=== PATIENT | male | born 1985 | race Caucasian/White ===

== ENCOUNTER 2020-04-05 19:20 | Emergency (ER) | payer OTHER ==
[~2020-04-05] VITALS: Ht 172.7 cm; Wt 74.8 kg
[2020-04-05] MEDS ORDERED: KETOROLAC 30 MG/ML VIAL IVP STA (19:55)
[2020-04-05] MEDS ORDERED: LACTATED RINGERS 1,000 ML IV STA (19:55)
[2020-04-05] MEDS ORDERED: ONDANSETRON 4 MG/2 ML (SDV) Z0FRAN IVP ONE (20:00)
[2020-04-05 20:08] LABS: BASOPHILS % (AUTO) 0 % (0-10); EOSINOPHILS # (AUTO) 0.5 10^3/uL (0.0-0.3); EOSINOPHILS % (AUTO) 5 % (0-10); HEMATOCRIT 44 % (40-54); HEMOGLOBIN 15.9 G/DL (13.3-17.7); LYMPHOCYTES # (AUTO) 2.9 X 10^3 (1.0-4.0); LYMPHOCYTES % (AUTO) 29 % (12-44); MEAN CORPUSCULAR HEMOGLOBIN 33 PG (25-34); MEAN CORPUSCULAR HGB CONC 36 G/DL (32-36); MEAN CORPUSCULAR VOLUME 93 FL (80-99); MEAN PLATELET VOLUME 11.3 FL (7.4-10.4); MONOCYTES % (AUTO) 10 % (0-12); NEUTROPHILS # (AUTO) 5.6 X 10^3 (1.8-7.8); NEUTROPHILS % (AUTO) 56 % (42-75); PLATELET COUNT 233 10^3/uL (130-400); RED CELL DISTRIBUTION WIDTH 13.2 % (10.0-14.5); WHITE BLOOD COUNT 10.1 10^3/uL (4.3-11.0)
[2020-04-05] MEDS ORDERED: CATHETER FLUSH 10 ML SYR IV PRN (20:15)
[2020-04-05] MEDS ORDERED: HOLD METFORMIN - RECEIVED CONTRAST 20 ML VIAL IV SCH (20:15)
[2020-04-05] MEDS ORDERED: NS 100 ML (IVPB) BAG IV ONE (20:15)
[2020-04-05] MEDS ORDERED: IOHEXOL 350 MG/ML 100 ML (OMNIPAQUE 350) VIAL IV ONE (20:15)
[2020-04-05 20:19] LABS: ALBUMIN 4.6 GM/DL (3.2-4.5); CHLORIDE 106 MMOL/L (98-107); POTASSIUM 3.9 MMOL/L (3.6-5.0); SODIUM 143 MMOL/L (135-145)
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
[2020-04-05 20:20] LABS: CALCIUM 9.7 MG/DL (8.5-10.1)
[2020-04-05 20:21] LABS: GLUCOSE 105 MG/DL (70-105); TOTAL PROTEIN 7.5 GM/DL (6.4-8.2)
[2020-04-05 20:22] LABS: CARBON DIOXIDE 24 MMOL/L (21-32)
[2020-04-05 20:23] LABS: BILIRUBIN,TOTAL 0.5 MG/DL (0.1-1.0)
[2020-04-05 20:25] LABS: ALKALINE PHOSPHATASE 66 U/L (40-136); CREATININE SERUM 1.18 MG/DL (0.60-1.30); GFR ESTIMATED > 60
[2020-04-05 20:26] LABS: BUN/CREATININE RATIO 9
[2020-04-05 20:28] LABS: ALANINE AMINOTRANSFERASE 24 U/L (0-55)
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
[2020-04-05 21:14] VITALS: BP 131/94
--- OUTSIDE RECORDS SUMMARY | 2020-04-05 22:09 | XMS REPORT | Clinical Summary ---
Author Author Admin, Esequiel Vo Organization [facility] Address Unknown Phone Unavailable Allergies, Adverse Reactions, Alerts Allergy Name Reaction Description Start Date Severity Status Pr ovider No Known Allergies Manda Mena LPN Conditions or Problems Problem Name Problem Code Onset Date Status Entry Date Provider Comment Standard Description Annotate LOW BACK PAIN SYNDROME 724.2 Active Eric rutherford MD Lumbago Migraine headache 346.90 Active Marielena Samano PRN Migraine, unspecified, without mention of intractable migraine, without mention of status migrainosus Insomnia 780.52 Active Marielena Estes RN CONCURRENT REVIEW Insomnia, unspecified Depression 311 Active Marielena Estes APRN Depressive disorder, not elsewhere classified Hemorrhoids, external 455.3 Active Cj SARAH External hemorrhoids without mention of complication Medication List Medication Instructions Start Date Stop Date Generic Name [facility] Status Provider Patient Instruction TYLENOL PM EXTRA STRENGTH 1000-50 MG/30ML ORAL LIQD 2 tabs p o at bedtime DIPHENHYDRAMINE-APAP (SLEEP) 78438130791 Active Cj SARAH Active TOPAMAX 25 MG TABS 1 qHS x 1 week, then 1 BID x 1 week, then 1 qAM and 2 qHS x 1 week, then 2 BID (migraine prevention) TOPIRAMAT E 97721533590 No Longer Active Cj SARAH Active AMITRIPTYLINE HCL 25 MG TABS 1 tablet at HS AMITRIPTYLINE HCL 32053607664 No Longer Active Cj SARAH Activ e MOBIC 7.5 MG TABS 1 tablet by mouth twice daily MELOXICAM 98162301459 No Longer Active Marielena Estes APRN Active PREDNISONE 20 MG TAB 3 tabs daily for 3 days, 2 t abs daily for 3 days, 1 tab daily for 3 days, 1/2 tab daily for 3 days PREDN CARLOTA 35114541042 No Longer Active Eric Hester MD Active PREDNISONE 20 MG TAB 2 tabs daily for 3 days, 1 t ab daily for 3 days, 1/2 tab daily for 2 days PREDNISONE 96498285218 No Longer Active Eric Hester MD Active MOBIC 7.5 MG TABS 1 tablet by mouth twice daily 10/30 MOBIC 7.5 MG TABS 386047 MELOXICAM Inactive AMITRIPTYLINE HCL 25 MG TABS 1 tablet at HS AMITRIPTYLINE HCL 25 MG TABS 225527 AMITRIPTYLINE HCL Inactive TOPAMAX 25 MG TABS 1 qHS x 1 week, then 1 BID x 1 week, then 1 qAM and 2 qHS x 1 week, then 2 BID (migraine prevention) TOPAMAX 2 5 MG TABS 973430 TOPIRAMATE Inactive PREDNISONE 20 MG TAB 2 tabs daily for 3 days, 1 t ab daily for 3 days, 1/2 tab daily for 2 days PREDNISONE 20 MG TAB 891708 PREDNISON E Inactive PREDNISONE 20 MG TAB 3 tabs daily for 3 days, 2 t abs daily for 3 days, 1 tab daily for 3 days, 1/2 tab daily for 3 days PREDNISONE 20 MG TAB 700501 PREDNISONE Inactive Vital Signs Date Name Value Unit Range Description blood pressure, diastolic - 8462-4 82 mm[Hg] BP post blood pressure, systolic - 8480-6 134 mm[Hg] BP sys pulse rate E&M - 8867-4 82 /min H eart rate temperature E&M 98.8 [degF] Body temp erature weight E&M - 3141-9 160 [lb_av] Weigh t Measured Encounters Code Encounter Date Provider Facility CPT-78996 Level 3 Est. Patient 19:07:23 CDT Cj SARAH [facility] CPT-84372 Level 3 Est. Patient 16:45:43 APPLICATION DEVELOPMENT INTERN Marielena Barrett APRN [facility] CPT-37809 Level 3 Est. Patient 14:52:49 APPLICATION DEVELOPMENT INTERN Eric muhammad MD [facility] CPT-16396 Level 3 Est. Patient 15:41:51 CDT Eric muhammad MD [facility]
--- OUTSIDE RECORDS SUMMARY | 2020-04-05 22:09 | XMS REPORT | Clinical Summary ---
Author Author Admin, Esequiel Vo Organization [employer] Address Unknown Phone Unavailable Allergies, Adverse Reactions, Alerts Allergy Name Reaction Description Start Date Severity Status Pr ovider NKDA Critical Active Kiley Naff LP N Conditions or Problems Problem Name Problem Code Onset Date Status Entry Date Provider Comment Standard Description Annotate LOW BACK PAIN SYNDROME 724.2 Active Eric rutherford MD Lumbago Migraine headache 346.90 Active Marielena Samano PRN Migraine, unspecified, without mention of intractable migraine, without mention of status migrainosus Insomnia 780.52 Active Marielena Estes JET SKI MECHANIC Insomnia, unspecified Depression 311 Active Marielena Estes APRN Depressive disorder, not elsewhere classified Hemorrhoids, external 455.3 Active Cj SARAH External hemorrhoids without mention of complication Anxiety 300.00 Active Cj SARAH Anxiety state, unspecified Insomnia 780.52 Active Cj SARAH Insomnia, unspecified Anxiety depression 300.4 Active Ayan Devi DO Dysthymic disorder High blood pressure 401.9 Active Ayan Devi DO Unspecified essential hypertension Lumbar radiculopathy, right 724.4 Active Ayan Devi DO Thoracic or lumbosacral neuritis or radiculitis, unspecified Pneumonia 486 Active Ayan Devi DO P neumonia, organism unspecified Preoperative examination V72.84 Active Ayan goldsmith DO Preoperative examination, unspecified Postoperative examination V67.00 Active Ayan Devi DO Follow-up examination following surgery, unspecified Medication List Medication Instructions Start Date Stop Date Generic Name NDC Status Provider Patient Instruction FENTANYL 12 MCG/HR PT72 Apply to clean, dry skin and change every 72 hours FENTANYL 32439751827 Active Ayan Devi DO Ac tive LISINOPRIL 20 MG TABS 1 tablet by mouth daily LISINOPRIL 50427648033 Active Ayan Devi DO Active PERCOCET 5-325 MG ORAL TABS 1 tab 4 times daily PRN Sparingly 03/09 OXYCODONE-ACETAMINOPHEN 49299353215 Active Fior Rice JET SKI MECHANIC Active METOPROLOL SUCCINATE ER 25 MG ORAL [id number] 1 tablet daily for elevated blood pressure and heart rate METOPROLOL SUCCINATE 174776527 10 No Longer Active Ayan Devi DO Active METOPROLOL SUCCINATE 50 MG TB24 1 tablet by mouth daily METOPROLOL SUCCINATE 72234849956 Active Ayan Devi DO Active PROAIR HFA 108 (90 BASE) MCG/ACT AERS 2 puffs four lindsey es a day as needed for wheeze or cough ALBUTEROL SULFATE 13719601431 No Long er Active Ayan Devi DO Active AZITHROMYCIN 250 MG TABS 2 po qd x 1 day, then 1 po qd x 4 days AZITHROMYCIN 42731259598 No Longer Active Ayan Devi DO A ctive TRAMADOL HCL 50 MG ORAL TABS Take 1/2 tab po TID with extra strength tylenol TRAMADOL HCL 88842334409 No Longer Active Ayan Devi DO Active FENTANYL 12 MCG/HR TRANS PT72 Apply two patches to boris an dry skin and change every 3 days. FENTANYL 86862015217 No Longer Active Monica Devi DO Active VENLAFAXINE HCL ER 75 MG ORAL [id number] 1 capsule daily for anxiety/depression VENLAFAXINE HCL 97238488029 Active Ayan Devi DO Active VENLAFAXINE HCL 37.5 MG ORAL TABS Take 1 tab po daily x 7 days then increase to twice daily VENLAFAXINE HCL 55731975125 No Longer Active Ayan Devi DO Active ZOLPIDEM TARTRATE 10 MG ORAL TABS 1 tab PO at hs PRN insomnia 20 03/09/08 ZOLPIDEM TARTRATE 98571457194 No Longer Active Ayan Devi DO Active ALPRAZOLAM 0.5 MG ORAL TABS 1 PO q 8 hrs PRN AL PRAZOLAM 30673893761 No Longer Active Ayan Devi DO Active ESCITALOPRAM OXALATE 10 MG ORAL TABS 1 tab PO daily ESCITALOPRAM OXALATE 77727432292 No Longer Active Cj SARAH Activ e CITALOPRAM HYDROBROMIDE 20 MG ORAL TABS 1 tablet PO da asha. Do not miss or skip doses. Contact your provider if you intend to discontinue this medication. CITALOPRAM HYDROBROMIDE 84220840409 No Longer Active Kiley Naff HAND PATCHER Active ALPRAZOLAM 0.5 MG ORAL TABS 1 tablet PO q 8 hrs PRN 03/09/08 ALPRAZOLAM 52680008174 No Longer Active Kiley Naff HAND PATCHER Active TYLENOL PM EXTRA STRENGTH 1000-50 MG/30ML ORAL LIQD 2 tabs p o at bedtime DIPHENHYDRAMINE-APAP (SLEEP) 24693702524 No Longer Ac tive Kiley Naff HAND PATCHER Active TOPAMAX 25 MG TABS 1 qHS x 1 week, then 1 BID x 1 week, then 1 qAM and 2 qHS x 1 week, then 2 BID (migraine prevention) TOPIRAMAT E 38428224379 No Longer Active Cj SARAH Active AMITRIPTYLINE HCL 25 MG TABS 1 tablet at HS AMITRIPTYLINE HCL 71474284934 No Longer Active Cj Rodriguez PA Activ e MOBIC 7.5 MG TABS 1 tablet by mouth twice daily MELOXICAM 60382659519 No Longer Active Marielena Estes APRN Active PREDNISONE 20 MG TAB 3 tabs daily for 3 days, 2 t abs daily for 3 days, 1 tab daily for 3 days, 1/2 tab daily for 3 days PREDN CARLOTA 72281196671 No Longer Active Eric Hester MD Active PREDNISONE 20 MG TAB 2 tabs daily for 3 days, 1 t ab daily for 3 days, 1/2 tab daily for 2 days PREDNISONE 75922835722 No Longer Active Eric Hester MD Active MOBIC 7.5 MG TABS 1 tablet by mouth twice daily 10/30 MOBIC 7.5 MG TABS 565239 MELOXICAM Inactive AMITRIPTYLINE HCL 25 MG TABS 1 tablet at HS AMITRIPTYLINE HCL 25 MG TABS 132631 AMITRIPTYLINE HCL Inactive TOPAMAX 25 MG TABS 1 qHS x 1 week, then 1 BID x 1 week, then 1 qAM and 2 qHS x 1 week, then 2 BID (migraine prevention) TOPAMAX 2 5 MG TABS 708806 TOPIRAMATE Inactive TYLENOL PM EXTRA STRENGTH 1000-50 MG/30ML ORAL LIQD 2 tabs p o at bedtime TYLENOL PM EXTRA STRENGTH 1000-50 MG/30ML ORAL L IQD DIPHENHYDRAMINE-APAP (SLEEP) Inactive ALPRAZOLAM 0.5 MG ORAL TABS 1 tablet PO q 8 hrs PRN 20 03/09/08 ALPRAZOLAM 0.5 MG ORAL TABS 712023 ALPRAZOLAM Inactive CITALOPRAM HYDROBROMIDE 20 MG ORAL TABS 1 tablet PO da asha. Do not miss or skip doses. Contact your provider if you intend to discontinue this medication. CITALOPRAM HYDROBROMIDE 20 MG ORAL TABS 20030320 CITALOPRAM HYDROBROMIDE Inactive ALPRAZOLAM 0.5 MG ORAL TABS 1 PO q 8 hrs PRN 1 ALPRAZOLAM 0.5 MG ORAL TABS 130839 ALPRAZOLAM Inactive ZOLPIDEM TARTRATE 10 MG ORAL TABS 1 tab PO at hs PRN insomnia 20 03/09/08 ZOLPIDEM TARTRATE 10 MG ORAL TABS 352047 ZOLPIDEM TARTR ATE Inactive VENLAFAXINE HCL 37.5 MG ORAL TABS Take 1 tab po daily x 7 days then increase to twice daily VENLAFAXINE HCL 37.5 MG ORAL TABS 551722 VENLAFAXINE HCL Inactive FENTANYL 12 MCG/HR TRANS PT72 Apply two patches to boris an dry skin and change every 3 days. FENTANYL 12 MCG/HR TRANS PT72 325866 FENTANYL Inactive TRAMADOL HCL 50 MG ORAL TABS Take 1/2 tab po TID with extra strength tylenol TRAMADOL HCL 50 MG ORAL TABS 221093 TRAMADOL HCL Inactive PROAIR HFA 108 (90 BASE) MCG/ACT AERS 2 puffs four lindsey es a day as needed for wheeze or cough PROAIR HFA 108 (90 BASE) MCG/ACT AERS ALBUTEROL SULFATE Inactive METOPROLOL SUCCINATE ER 25 MG ORAL [id number] 1 tablet daily for elevated blood pressure and heart rate METOPROLOL SUCCI VANDANA ER 25 MG ORAL [id number] METOPROLOL SUCCINATE Inactive PREDNISONE 20 MG TAB 2 tabs daily for 3 days, 1 t ab daily for 3 days, 1/2 tab daily for 2 days PREDNISONE 20 MG TAB 802114 PREDNISON E Inactive PREDNISONE 20 MG TAB 3 tabs daily for 3 days, 2 t abs daily for 3 days, 1 tab daily for 3 days, 1/2 tab daily for 3 days PREDNISONE 20 MG TAB 739862 PREDNISONE Inactive AZITHROMYCIN 250 MG TABS 2 po qd x 1 day, then 1 po qd x 4 days AZITHROMYCIN 250 MG TABS 9637613 AZITHROMYCIN Inactiv e Vital Signs Date Name Value Unit Range Description blood pressure, diastolic - 8462-4 103 mm[Hg] BP post blood pressure, systolic - 8480-6 159 mm[Hg] BP sys pulse rate E&M - 8867-4 93 /min H eart rate temperature E&M 99.2 [degF] Body temp erature weight E&M - 3141-9 174 [lb_av] Weigh t Measured blood pressure, diastolic - 8462-4 97 mm[Hg] BP post blood pressure, systolic - 8480-6 135 mm[Hg] BP sys pulse rate E&M - 8867-4 125 /min H eart rate temperature E&M 98.7 [degF] Body temp erature weight E&M - 3141-9 170 [lb_av] Weigh t Measured blood pressure, diastolic - 8462-4 95 mm[Hg] BP post blood pressure, systolic - 8480-6 147 mm[Hg] BP sys pulse rate E&M - 8867-4 89 /min H eart rate temperature E&M 98.7 [degF] Body temp erature weight E&M - 3141-9 168 [lb_av] Weigh t Measured blood pressure, diastolic - 8462-4 97 mm[Hg] BP post blood pressure, systolic - 8480-6 142 mm[Hg] BP sys pulse rate E&M - 8867-4 104 /min H eart rate temperature E&M 97.4 [degF] Body temp erature weight E&M - 3141-9 163.5 [lb_av] Weigh t Measured blood pressure, diastolic - 8462-4 90 mm[Hg] BP post blood pressure, systolic - 8480-6 144 mm[Hg] BP sys height E&M - 8302-2 66.75 [in_us] Bdy h eight pulse rate E&M - 8867-4 100 /min H eart rate temperature E&M 98.5 [degF] Body temp erature weight E&M - 3141-9 164 [lb_av] Weigh t Measured Diagnostic Results Date Name Value Unit Range Description Lab Report: CBC, Comp. Metabolic Panel - Chemistry sodium, serum 141 mmol/L 228-590 7853/06/09 carbon dioxide, venous blood 30.5 mmol/L 21.0-32 .0 potassium, serum 4.3 mmol/L 3.5-5.2 chloride, serum 104 mmol/L 98-107 blood glucose 85 mg/dL 65-110 urea nitrogen, blood 11 mg/dL 7-18 creatinine, serum 0.99 mg/dL 0.55-1.30 alanine aminotransferase (SGPT), serum 44 U/L 12-78 aspartate aminotransferase (SGOT), serum 28 U/L 15-37 calcium, serum 9.5 mg/dL 8.5-10.1 bilirubin, serum, total 0.50 mg/dL 0.00-1.00 Lab Report: CBC, Comp. Metabolic Panel - Hematology leukocyte count, blood 6.1 10^3/MM^3 10*3/mm3 4.6-10.2 erythrocyte (RBC) count 4.56 10^6/MM^3 10*6/mm3 4.69-6.1 3 hemoglobin, blood 15.1 g/dL 13.5-17.5 hematocrit, blood 44.4 % 41.0-53.0 mean corpuscular volume, RBC 97 fL 80-97 mean corpuscular hemoglobin, RBC 33.1 pg 27. 0-31.2 mean corpuscular hemoglobin concentration, RBC 34.0 G/DL % 31.8-35.4 red blood cell distribution width 13.9 % 11 .6-14.8 platelet count 260 10^3/MM^3 10*3/mm3 142-424 Lab Report: GLORIA INFLUENZA A/B - [place] rapid flu test Negative Negative;Positive Encounters Code Encounter Date Provider Facility CPT-70311 Level 3 Est. Patient 17:32:44 CDT Ayan goldsmith [facility] CPT-55872 Level 3 Est. Patient 10:14:46 CDT Ayan goldsmith [facility] CPT-58641 Level 3 Est. Patient 10:38:22 CDT Ayan goldsmith [facility] CPT-79347 Level 4 Est. Patient 09:30:39 CDT Ayan goldsmith [facility] CPT-66561 Level 3 Est. Patient 17:31:00 QUALITY ASSURANCE SPECIALIST Cj Rodriguez [facility] CPT-26954 Level 3 Est. Patient 19:07:23 CDT Cj Rodriguez [facility] CPT-64140 Level 3 Est. Patient 16:45:43 QUALITY ASSURANCE SPECIALIST Marielena Barrett APRN [facility] CPT-68237 Level 3 Est. Patient 14:52:49 QUALITY ASSURANCE SPECIALIST Eric muhammad MD [facility] CPT-26147 Level 3 Est. Patient 15:41:51 CDT Eric muhammad MD [facility] Procedures Code Procedure Name Date Entry Date Standard Desc ription CPT-36999 Chest 2V Frontal and Lat 10:48:26 CDT 01/08
--- OUTSIDE RECORDS SUMMARY | 2020-04-05 22:09 | XMS REPORT | Clinical Summary ---
Author Author Admin, Esequiel Vo Organization [facility] Address Unknown Phone Unavailable Allergies, Adverse [...] status migrainosus Insomnia 780.52 Active Marielena Estes CESSPOOL CLEANER Insomnia, unspecified Depression 311 Active Marielena Estes APRN Depressive disorder, not elsewhere classified Hemorrhoids, external 455.3 Active Cj SARAH External hemorrhoids without mention of complication Anxiety 300.00 Active Cj SARAH Anxiety state, unspecified Insomnia 780.52 Active Cj SARAH Insomnia, unspecified Anxiety depression 300.4 Active Aayn Devi DO Dysthymic disorder High blood pressure 401.9 Active Ayan Devi DO Unspecified essential hypertension Lumbar radiculopathy, right 724.4 Active Ayan Devi DO Thoracic or lumbosacral neuritis or radiculitis, unspecified Medication List Medication Instructions Start Date Stop Date Generic Name NDC Status Provider Patient Instruction FENTANYL 12 MCG/HR TRANS PT72 Apply one patch to clean dry skin and change every 3 days. FENTANYL 77004337001 Active Raven Wen MA Active TRAMADOL HCL 50 MG ORAL TABS Take 1/2 tab po TID with extra strength tylenol TRAMADOL HCL 60767313882 Active Raven Wen MA Active METOPROLOL SUCCINATE ER 25 MG ORAL [id number] 1/2 table t daily for elevated blood pressure and heart rate METOPROLOL SUCCINATE 79132869180 A ctive Ayan Devi DO Active VENLAFAXINE HCL ER 75 MG ORAL [id number] 1 capsule daily for anxiety/depression VENLAFAXINE HCL 19788045420 Active Ayan Devi DO Active VENLAFAXINE HCL 37.5 MG ORAL TABS Take 1 tab po daily x 7 days then increase to twice daily VENLAFAXINE HCL 13650972792 No Longer Active Ayan Devi DO Active ZOLPIDEM TARTRATE 10 MG ORAL TABS 1 tab PO at hs PRN insomnia 20 03/09/08 ZOLPIDEM TARTRATE 01358822566 No Longer Active Ayan Devi DO Active ALPRAZOLAM 0.5 MG ORAL TABS 1 PO q 8 hrs PRN AL PRAZOLAM 15879521493 No Longer Active Ayan Devi DO Active ESCITALOPRAM OXALATE 10 MG ORAL TABS 1 tab PO daily ESCITALOPRAM OXALATE 08462319255 No Longer Active Cj Grijalva e CITALOPRAM HYDROBROMIDE 20 MG ORAL TABS 1 tablet PO da asha. Do not miss or skip doses. Contact your provider if you intend to discontinue this medication. CITALOPRAM HYDROBROMIDE 11725192071 No Longer Active Kiley Naff SUPPORT ASSOCIATE Active ALPRAZOLAM 0.5 MG ORAL TABS 1 tablet PO q 8 hrs PRN 20 03/09/08 ALPRAZOLAM 52627854283 No Longer Active Kiley Naff SUPPORT ASSOCIATE Active TYLENOL PM EXTRA STRENGTH 1000-50 MG/30ML ORAL LIQD 2 tabs p o at bedtime DIPHENHYDRAMINE-APAP (SLEEP) 20500400746 No Longer Ac tive Kiley Naff SUPPORT ASSOCIATE Active TOPAMAX 25 MG TABS 1 qHS x 1 week, then 1 BID x 1 week, then 1 qAM and 2 qHS x 1 week, then 2 BID (migraine prevention) TOPIRAMAT E 61713880720 No Longer Active Cj SARAH Active AMITRIPTYLINE HCL 25 MG TABS 1 tablet at HS AMITRIPTYLINE HCL 52350792180 No Longer Active Cj SARAH Activ e MOBIC 7.5 MG TABS 1 tablet by mouth twice daily MELOXICAM 45829889963 No Longer Active Marielena Estes APRN Active PREDNISONE 20 MG TAB 3 tabs daily for 3 days, 2 t abs daily for 3 days, 1 tab daily for 3 days, 1/2 tab daily for 3 days PREDN ISONE 76339281551 No Longer Active Eric Hester MD Active PREDNISONE 20 MG TAB 2 tabs daily for 3 days, 1 t ab daily for 3 days, 1/2 tab daily for 2 days PREDNISONE 66971325998 No Longer Active Eric Hester MD Active MOBIC 7.5 MG TABS 1 tablet by mouth twice daily 10/30 MOBIC 7.5 MG TABS 242755 MELOXICAM Inactive AMITRIPTYLINE HCL 25 MG TABS 1 tablet at HS AMITRIPTYLINE HCL 25 MG TABS 013578 AMITRIPTYLINE HCL Inactive TOPAMAX 25 MG TABS 1 qHS x 1 week, then 1 BID x 1 week, then 1 qAM and 2 qHS x 1 week, then 2 BID (migraine prevention) TOPAMAX 2 5 MG TABS 771070 TOPIRAMATE Inactive TYLENOL PM EXTRA STRENGTH 1000-50 MG/30ML ORAL LIQD 2 tabs p o at bedtime TYLENOL PM EXTRA STRENGTH 1000-50 MG/30ML ORAL L IQD DIPHENHYDRAMINE-APAP (SLEEP) Inactive ALPRAZOLAM 0.5 MG ORAL TABS 1 tablet PO q 8 hrs PRN 03/09/08 ALPRAZOLAM 0.5 MG ORAL TABS 967890 ALPRAZOLAM Inactive CITALOPRAM HYDROBROMIDE 20 MG ORAL TABS 1 tablet PO da asha. Do not miss or skip doses. Contact your provider if you intend to discontinue this medication. CITALOPRAM HYDROBROMIDE 20 MG ORAL TABS 245545 CITALOPRAM HYDROBROMIDE Inactive ALPRAZOLAM 0.5 MG ORAL TABS 1 PO q 8 hrs PRN 1 ALPRAZOLAM 0.5 MG ORAL TABS 212878 ALPRAZOLAM Inactive ZOLPIDEM TARTRATE 10 MG ORAL TABS 1 tab PO at hs PRN insomnia 20 03/09/08 ZOLPIDEM TARTRATE 10 MG ORAL TABS 619433 ZOLPIDEM TARTR ATE Inactive VENLAFAXINE HCL 37.5 MG ORAL TABS Take 1 tab po daily x 7 days then increase to twice daily VENLAFAXINE HCL 37.5 MG ORAL TABS 550785 VENLAFAXINE HCL Inactive PREDNISONE 20 MG TAB 2 tabs daily for 3 days, 1 t ab daily for 3 days, 1/2 tab daily for 2 days PREDNISONE 20 MG TAB 843925 PREDNISON E Inactive PREDNISONE 20 MG TAB 3 tabs daily for 3 days, 2 t abs daily for 3 days, 1 tab daily for 3 days, 1/2 tab daily for 3 days PREDNISONE 20 MG TAB 812582 PREDNISONE Inactive Vital Signs Date Name Value Unit Range Description blood pressure, diastolic - 8462-4 97 mm[Hg] [...] - 3141-9 164 [lb_av] Weigh t Measured blood pressure, diastolic - 8462-4 88 mm[Hg] BP post blood pressure, systolic - 8480-6 138 mm[Hg] BP sys pulse rate E&M - 8867-4 97 /min H eart rate temperature E&M 98.7 [degF] Body temp erature weight E&M - 3141-9 161.1 [lb_av] Weigh t Measured blood pressure, diastolic - 8462-4 82 mm[Hg] BP post blood pressure, systolic - 8480-6 134 mm[Hg] BP sys pulse rate E&M - 8867-4 82 /min H eart rate temperature E&M 98.8 [degF] Body temp erature weight E&M - 3141-9 160 [lb_av] Weigh t Measured Encounters Code Encounter Date Provider Facility CPT-66739 Level 4 Est. Patient 09:30:39 CDT Ayan goldsmith DO [facility] CPT-13854 Level 3 Est. Patient 17:31:00 WARDROBE MANAGER Cj Rodriguez [facility] CPT-19696 Level 3 Est. Patient 19:07:23 CDT Cj Rodriguez [facility] CPT-54528 Level 3 Est. Patient 16:45:43 WARDROBE MANAGER Marielena Barrett APRN [facility] CPT-20771 Level 3 Est. Patient 14:52:49 WARDROBE MANAGER Eric muhammad MD [facility] CPT-51216 Level 3 Est. Patient 15:41:51 CDT Eric muhammad MD [facility]
--- OUTSIDE RECORDS SUMMARY | 2020-04-05 22:09 | XMS REPORT ---
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 Problem list No authorized problems tracked for continuity of care are available for this vis it. Encounters No authorized problems tracked for encounter diagnoses are available for this vi sit. Medications No medications recorded for this patient visit Allergies, adverse reactions, alerts Allergen Category Ingredient Status Reaction Severity Onset No known drug allergies No known drug allergies No known drug al lergies Confirmed or Verified Immunizations No immunizations recorded for this patient visit Relevant diagnostic tests and/or laboratory data RESULTS Radiology Results [id number]:00 MRI L-SPINE W/O CONT PACs Image DATE OF EXAM: 2015 MRI 0085-MRI L SPINE WO CONT RAST : RADIOLOGY REPORT DATE OF SERVICE: 12/23/15 HISTORY: Chronic low back pain with righ t leg radiculopathy for 3 weeks. MRI LUMBAR [id number] HOURS Imaging of the lumbar spine was performe d in the sagittal and axial planes. Comparison is made with radiogra phs of the lumbar spine dated 08/04/2011. The lumbar vertebrae are nor mal in height and alignment. There is no fracture, spondylolysis, or spondylolisthesis. There is normal marrow signal throughout the lumb ar vertebrae and upper sacrum. The conus medullaris is normal and termi nates at T12-L1. The paraspinous soft tissues are normal. The upper and m id lumbar disc spaces are normal from T11-T12 through the L4-L5 level. Th e lumbar canal is widely patent. There is a central and right paracentral disc herniation at L5- S1 effacing. This is fairly small, but does produce posterior displacement of the proximal right S1 nerve root. The facets are well maintained at each level. There is no lumbar canal or foraminal stenosis. IMPRESSION: Small right paracentral disc herniation at L5-S1 with posterior displacement of the right S1 n erve root. Otherwise negative MRI lumbar spine. MD HERB Knowles/pa12/23/2015 11:06:12/2015 11:11:36 cc:Dr. Ayan Devi This document has been electronically Signed by: On: DATE OF EXAM: 2015 MRI 0085-MRI L SPINE WO CONT RAST : RADIOLOGY REPORT DATE OF SERVICE: 12/23/15 HISTORY: Chronic low back pain with righ t leg radiculopathy for 3 weeks. MRI LUMBAR [id number] HOURS Imaging of the lumbar spine was performe d in the sagittal and axial planes. Comparison is made with radiogra phs of the lumbar spine dated 08/04/2011. The lumbar vertebrae are nor mal in height and alignment. There is no fracture, spondylolysis, or spondylolisthesis. There is normal marrow signal throughout the lumb ar vertebrae and upper sacrum. The conus medullaris is normal and termi nates at T12-L1. The paraspinous soft tissues are normal. The upper and m id lumbar disc spaces are normal from T11-T12 through the L4-L5 level. Th e lumbar canal is widely patent. There is a central and right paracentral disc herniation at L5- S1 effacing. This is fairly small, but does produce posterior displacement of the proximal right S1 nerve root. The facets are well maintained at each level. There is no lumbar canal or foraminal stenosis. IMPRESSION: Small right paracentral disc herniation at L5-S1 with posterior displacement of the right S1 n erve root. Otherwise negative MRI lumbar spine. MD HERB Knowles/pa12/23/2015 11:06:12/2015 11:11:36 cc:Dr. Ayan Devi This document has been electronically Signed by: WADE LAM MD On: Dec 23 20151:44P Result Amended on 2015-12-23 at 13:44:34 . Previous status was IA. History of procedures Procedure Code Code Type Description Date Performed Performing Physician [id number] CPT-4 MRI LUMBAR SPINE W/O DYE 12-23-2015 Shayan DEVI Functional status No functional or cognitive status observations are available for this visit. Vital signs No authorized vital signs are available for this visit. Social history No Social History or smoking status observations were recorded for this visit. ( Unknown if ever smoked.) Treatment Plan No treatment plan text is available for this visit. Hospital discharge instructions No discharge instruction text is available for this visit.
--- OUTSIDE RECORDS SUMMARY | 2020-04-05 22:09 | XMS REPORT | Clinical Summary ---
Author Author Admin, Esequiel Vo Organization [facility] Address Unknown Phone Unavailable Allergies, Adverse [...] status migrainosus Insomnia 780.52 Active Marielena Estes CHART CALCULATOR Insomnia, unspecified Depression 311 Active Marielena Estes APRN Depressive disorder, not elsewhere classified Hemorrhoids, external 455.3 Active Cj SARAH External hemorrhoids without mention of complication Medication List Medication Instructions Start Date Stop Date Generic Name [facility] Status Provider Patient Instruction TYLENOL PM EXTRA STRENGTH 1000-50 MG/30ML ORAL LIQD 2 tabs p o at bedtime DIPHENHYDRAMINE-APAP (SLEEP) 04448594799 Active Cj SARAH Active TOPAMAX 25 MG TABS 1 qHS x 1 week, then 1 BID x 1 week, then 1 qAM and 2 qHS x 1 week, then 2 BID (migraine prevention) TOPIRAMAT E 10459256897 No Longer Active Cj SARAH Active AMITRIPTYLINE HCL 25 MG TABS 1 tablet at HS AMITRIPTYLINE HCL 20694321449 No Longer Active Cj SARAH Activ e MOBIC 7.5 MG TABS 1 tablet by mouth twice daily MELOXICAM 43461324842 No Longer Active Marielena Estes APRN Active PREDNISONE 20 MG TAB 3 tabs daily for 3 days, 2 t abs daily for 3 days, 1 tab daily for 3 days, 1/2 tab daily for 3 days PREDN CARLOTA 26597783443 No Longer Active Eric Hester MD Active PREDNISONE 20 MG TAB 2 tabs daily for 3 days, 1 t ab daily for 3 days, 1/2 tab daily for 2 days PREDNISONE 50628620418 No Longer Active Eric Hester MD Active MOBIC 7.5 MG TABS 1 tablet by mouth twice daily 10/30 MOBIC 7.5 MG TABS 053649 MELOXICAM Inactive AMITRIPTYLINE HCL 25 MG TABS 1 tablet at HS AMITRIPTYLINE HCL 25 MG TABS 288357 AMITRIPTYLINE HCL Inactive TOPAMAX 25 MG TABS 1 qHS x 1 week, then 1 BID x 1 week, then 1 qAM and 2 qHS x 1 week, then 2 BID (migraine prevention) TOPAMAX 2 5 MG TABS 232881 TOPIRAMATE Inactive PREDNISONE 20 MG TAB 2 tabs daily for 3 days, 1 t ab daily for 3 days, 1/2 tab daily for 2 days PREDNISONE 20 MG TAB 256270 PREDNISON E Inactive PREDNISONE 20 MG TAB 3 tabs daily for 3 days, 2 t abs daily for 3 days, 1 tab daily for 3 days, 1/2 tab daily for 3 days PREDNISONE 20 MG TAB 381694 PREDNISONE Inactive Vital Signs Date Name Value Unit Range Description blood pressure, diastolic - 8462-4 82 mm[Hg] BP post blood pressure, systolic - 8480-6 134 mm[Hg] BP sys pulse rate E&M - 8867-4 82 /min H eart rate temperature E&M 98.8 [degF] Body temp erature weight E&M - 3141-9 160 [lb_av] Weigh t Measured Encounters Code Encounter Date Provider Facility CPT-23672 Level 3 Est. Patient 19:07:23 CDT Cj SARAH [facility] CPT-55824 Level 3 Est. Patient 16:45:43 SOW FARM BARN TECHNICIAN Marielena Barrett APRN [facility] CPT-12884 Level 3 Est. Patient 14:52:49 SOW FARM BARN TECHNICIAN Eric muhammad MD [facility] CPT-55644 Level 3 Est. Patient 15:41:51 CDT Eric muhammad MD [facility]
--- OUTSIDE RECORDS SUMMARY | 2020-04-05 22:10 | XMS REPORT | Clinical Summary ---
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 Insomnia, unspecified Depression 311 Active Marielena Estes APRN Depressive disorder, not elsewhere classified Hemorrhoids, external 455.3 Active Cj SARAH External hemorrhoids without mention of complication Anxiety 300.00 Active Cj SARAH Anxiety state, unspecified Insomnia 780.52 Active Cj SARAH Insomnia, unspecified Medication List Medication Instructions Start Date Stop Date Generic Name [facility] Status Provider Patient Instruction ZOLPIDEM TARTRATE 10 MG ORAL TABS 1 tab PO at hs PRN insomnia 08/27 ZOLPIDEM TARTRATE 01395012561 Active Cj SARAH Acti ve ALPRAZOLAM 0.5 MG ORAL TABS 1 PO q 8 hrs PRN AL PRAZOLAM 38797498091 Active Cj SARAH Active ESCITALOPRAM OXALATE 10 MG ORAL TABS 1 tab PO daily ESCITALOPRAM OXALATE 07501526517 Active Cj SARAH Active CITALOPRAM HYDROBROMIDE 20 MG ORAL TABS 1 tablet PO da asha. Do not miss or skip doses. Contact your provider if you intend to discontinue this medication. CITALOPRAM HYDROBROMIDE 44393455761 No Longer Active Kiley Vang DOCUMENTATION LIAISON Active ALPRAZOLAM 0.5 MG ORAL TABS 1 tablet PO q 8 hrs PRN 20 03/09/08 ALPRAZOLAM 50898097716 No Longer Active Kiley Vang DOCUMENTATION LIAISON Active TYLENOL PM EXTRA STRENGTH 1000-50 MG/30ML ORAL LIQD 2 tabs p o at bedtime DIPHENHYDRAMINE-APAP (SLEEP) 32449517321 No Longer Ac tive Kiley Vang DOCUMENTATION LIAISON Active TOPAMAX 25 MG TABS 1 qHS x 1 week, then 1 BID x 1 week, then 1 qAM and 2 qHS x 1 week, then 2 BID (migraine prevention) TOPIRAMAT E 98059786192 No Longer Active Cj SARAH Active AMITRIPTYLINE HCL 25 MG TABS 1 tablet at HS AMITRIPTYLINE HCL 56556802350 No Longer Active Cj SARAH Activ e MOBIC 7.5 MG TABS 1 tablet by mouth twice daily MELOXICAM 93034848526 No Longer Active Marielena Estes APRN Active PREDNISONE 20 MG TAB 3 tabs daily for 3 days, 2 t abs daily for 3 days, 1 tab daily for 3 days, 1/2 tab daily for 3 days PREDN ISONE 86538737047 No Longer Active Eric Hester MD Active PREDNISONE 20 MG TAB 2 tabs daily for 3 days, 1 t ab daily for 3 days, 1/2 tab daily for 2 days PREDNISONE 75891354938 No Longer Active Eric Hester MD Active MOBIC 7.5 MG TABS 1 tablet by mouth twice daily 10/30 MOBIC 7.5 MG TABS 968247 MELOXICAM Inactive AMITRIPTYLINE HCL 25 MG TABS 1 tablet at HS AMITRIPTYLINE HCL 25 MG TABS 491646 AMITRIPTYLINE HCL Inactive TOPAMAX 25 MG TABS 1 qHS x 1 week, then 1 BID x 1 week, then 1 qAM and 2 qHS x 1 week, then 2 BID (migraine prevention) TOPAMAX 2 5 MG TABS 623747 TOPIRAMATE Inactive TYLENOL PM EXTRA STRENGTH 1000-50 MG/30ML ORAL LIQD 2 tabs p o at bedtime TYLENOL PM EXTRA STRENGTH 1000-50 MG/30ML ORAL L IQD DIPHENHYDRAMINE-APAP (SLEEP) Inactive ALPRAZOLAM 0.5 MG ORAL TABS 1 tablet PO q 8 hrs PRN 03/09/08 ALPRAZOLAM 0.5 MG ORAL TABS 552718 ALPRAZOLAM Inactive CITALOPRAM HYDROBROMIDE 20 MG ORAL TABS 1 tablet PO da asha. Do not miss or skip doses. Contact your provider if you intend to discontinue this medication. CITALOPRAM HYDROBROMIDE 20 MG ORAL TABS 600075 CITALOPRAM HYDROBROMIDE Inactive PREDNISONE 20 MG TAB 2 tabs daily for 3 days, 1 t ab daily for 3 days, 1/2 tab daily for 2 days PREDNISONE 20 MG TAB 809623 PREDNISON E Inactive PREDNISONE 20 MG TAB 3 tabs daily for 3 days, 2 t abs daily for 3 days, 1 tab daily for 3 days, 1/2 tab daily for 3 days PREDNISONE 20 MG TAB 913906 PREDNISONE Inactive Vital Signs Date Name Value Unit Range Description blood pressure, diastolic - 8462-4 90 mm[Hg] [...] Measured Encounters Code Encounter Date Provider Facility CPT-68634 Level 3 Est. Patient 17:31:00 DATA COLLECTION SPECIALIST Cj Rodriguez [facility] CPT-04703 Level 3 Est. Patient 19:07:23 CDT Cj Rodriguez [facility] CPT-93689 Level 3 Est. Patient 16:45:43 DATA COLLECTION SPECIALIST Marielena Barrett APRN [facility] CPT-56301 Level 3 Est. Patient 14:52:49 DATA COLLECTION SPECIALIST Eric muhammad MD [facility] CPT-18135 Level 3 Est. Patient 15:41:51 CDT Eric muhammad MD [facility]
--- OUTSIDE RECORDS SUMMARY | 2020-04-05 22:10 | XMS REPORT | Clinical Summary ---
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 Insomnia, unspecified Depression 311 Active Marielena Estes APRN Depressive disorder, not elsewhere classified Hemorrhoids, external 455.3 Active Cj SARAH External hemorrhoids without mention of complication Anxiety 300.00 Active Cj SARAH Anxiety state, unspecified Insomnia 780.52 Active Cj SARAH Insomnia, unspecified Medication List Medication Instructions Start Date Stop Date Generic Name [facility] Status Provider Patient Instruction ZOLPIDEM TARTRATE 10 MG ORAL TABS 1 tab PO at hs PRN insomnia 08/27 ZOLPIDEM TARTRATE 69949278126 Active Cj SARAH Acti ve ALPRAZOLAM 0.5 MG ORAL TABS 1 PO q 8 hrs PRN AL PRAZOLAM 21706421596 Active Cj SARAH Active ESCITALOPRAM OXALATE 10 MG ORAL TABS 1 tab PO daily ESCITALOPRAM OXALATE 29828756480 Active Cj SARAH Active CITALOPRAM HYDROBROMIDE 20 MG ORAL TABS 1 tablet PO da asha. Do not miss or skip doses. Contact your provider if you intend to discontinue this medication. CITALOPRAM HYDROBROMIDE 10780481790 No Longer Active Kiley Vang CARBONATION EQUIPMENT OPERATOR Active ALPRAZOLAM 0.5 MG ORAL TABS 1 tablet PO q 8 hrs PRN 20 03/09/08 ALPRAZOLAM 97556911194 No Longer Active Kiley Vang CARBONATION EQUIPMENT OPERATOR Active TYLENOL PM EXTRA STRENGTH 1000-50 MG/30ML ORAL LIQD 2 tabs p o at bedtime DIPHENHYDRAMINE-APAP (SLEEP) 41647919876 No Longer Ac tive Kiley Vang CARBONATION EQUIPMENT OPERATOR Active TOPAMAX 25 MG TABS 1 qHS x 1 week, then 1 BID x 1 week, then 1 qAM and 2 qHS x 1 week, then 2 BID (migraine prevention) TOPIRAMAT E 19483329994 No Longer Active Cj SARAH Active AMITRIPTYLINE HCL 25 MG TABS 1 tablet at HS AMITRIPTYLINE HCL 61564137686 No Longer Active Cj SARAH Activ e MOBIC 7.5 MG TABS 1 tablet by mouth twice daily MELOXICAM 28808422849 No Longer Active Marielena Estes APRN Active PREDNISONE 20 MG TAB 3 tabs daily for 3 days, 2 t abs daily for 3 days, 1 tab daily for 3 days, 1/2 tab daily for 3 days PREDN ISONE 96892898214 No Longer Active Eric Hester MD Active PREDNISONE 20 MG TAB 2 tabs daily for 3 days, 1 t ab daily for 3 days, 1/2 tab daily for 2 days PREDNISONE 49070424675 No Longer Active Eric Hester MD Active MOBIC 7.5 MG TABS 1 tablet by mouth twice daily 10/30 MOBIC 7.5 MG TABS 428516 MELOXICAM Inactive AMITRIPTYLINE HCL 25 MG TABS 1 tablet at HS AMITRIPTYLINE HCL 25 MG TABS 644115 AMITRIPTYLINE HCL Inactive TOPAMAX 25 MG TABS 1 qHS x 1 week, then 1 BID x 1 week, then 1 qAM and 2 qHS x 1 week, then 2 BID (migraine prevention) TOPAMAX 2 5 MG TABS 437163 TOPIRAMATE Inactive TYLENOL PM EXTRA STRENGTH 1000-50 MG/30ML ORAL LIQD 2 tabs p o at bedtime TYLENOL PM EXTRA STRENGTH 1000-50 MG/30ML ORAL L IQD DIPHENHYDRAMINE-APAP (SLEEP) Inactive ALPRAZOLAM 0.5 MG ORAL TABS 1 tablet PO q 8 hrs PRN 03/09/08 ALPRAZOLAM 0.5 MG ORAL TABS 100846 ALPRAZOLAM Inactive CITALOPRAM HYDROBROMIDE 20 MG ORAL TABS 1 tablet PO da asha. Do not miss or skip doses. Contact your provider if you intend to discontinue this medication. CITALOPRAM HYDROBROMIDE 20 MG ORAL TABS 413416 CITALOPRAM HYDROBROMIDE Inactive PREDNISONE 20 MG TAB 2 tabs daily for 3 days, 1 t ab daily for 3 days, 1/2 tab daily for 2 days PREDNISONE 20 MG TAB 985320 PREDNISON E Inactive PREDNISONE 20 MG TAB 3 tabs daily for 3 days, 2 t abs daily for 3 days, 1 tab daily for 3 days, 1/2 tab daily for 3 days PREDNISONE 20 MG TAB 741799 PREDNISONE Inactive Vital Signs Date Name Value [...] Measured Encounters Code Encounter Date Provider Facility CPT-56772 Level 3 Est. Patient 17:31:[address] Cj Rodriguez [facility] CPT-25713 Level 3 Est. Patient 19:07:23 CDT Cj Rodriguez [facility] CPT-34269 Level 3 Est. Patient 16:45:[address] REC[address] Marielena Barrett APRN [facility] CPT-76293 Level 3 Est. Patient 14:52:[address] Eric muhammad MD [facility] CPT-54721 Level 3 Est. Patient 15:41:51 CDT Eric muhammad MD [facility]
--- OUTSIDE RECORDS SUMMARY | 2020-04-05 22:10 | XMS REPORT | Clinical Summary ---
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 Insomnia, unspecified Depression 311 Active Marielena Estes [...] Instructions Start Date Stop Date Generic Name ND Status Provider Patient Instruction LISINOPRIL 20 MG TABS 1 tablet by mouth daily LISINOPRIL 98974868760 Active Ayan Devi DO Active PERCOCET 5-325 MG ORAL TABS 1 tab 4 times daily PRN Sparingly 03/09 OXYCODONE-ACETAMINOPHEN 42738802770 Active Ayan Devi DO Ac tive METOPROLOL SUCCINATE ER 25 MG ORAL [id number] 1 tablet daily for elevated blood pressure and heart rate METOPROLOL SUCCINATE 948139874 10 No Longer Active Ayan Devi DO Active METOPROLOL SUCCINATE 50 MG TB24 1 tablet by mouth daily METOPROLOL SUCCINATE 36290393483 Active Ayan Devi DO Active PROAIR HFA 108 (90 BASE) MCG/ACT AERS 2 puffs four lindsey es a day as needed for wheeze or cough ALBUTEROL SULFATE 34010765729 No Long er Active Ayan Devi DO Active AZITHROMYCIN 250 MG TABS 2 po qd x 1 day, then 1 po qd x 4 days AZITHROMYCIN 46429981618 No Longer Active Ayan Devi DO A ctive TRAMADOL HCL 50 MG ORAL TABS Take 1/2 tab po TID with extra strength tylenol TRAMADOL HCL 31247431998 No Longer Active Ayan Devi DO Active FENTANYL 12 MCG/HR TRANS PT72 Apply two patches to boris an dry skin and change every 3 days. FENTANYL 61353137529 No Longer Active Monica Devi DO Active VENLAFAXINE HCL ER 75 MG ORAL [id number] 1 capsule daily for anxiety/depression VENLAFAXINE HCL 43450709020 Active Ayan Devi DO Active VENLAFAXINE HCL 37.5 MG ORAL TABS Take 1 tab po daily x 7 days then increase to twice daily VENLAFAXINE HCL 41100333359 No Longer Active Ayan Devi DO Active ZOLPIDEM TARTRATE 10 MG ORAL TABS 1 tab PO at hs PRN insomnia 20 03/09/08 ZOLPIDEM TARTRATE 07753217439 No Longer Active Ayan Devi DO Active ALPRAZOLAM 0.5 MG ORAL TABS 1 PO q 8 hrs PRN AL PRAZOLAM 17020103757 No Longer Active Ayan Devi DO Active ESCITALOPRAM OXALATE 10 MG ORAL TABS 1 tab PO daily ESCITALOPRAM OXALATE 42935205613 No Longer Active Cj SARAH Activ e CITALOPRAM HYDROBROMIDE 20 MG ORAL TABS 1 tablet PO da asha. Do not miss or skip doses. Contact your provider if you intend to discontinue this medication. CITALOPRAM HYDROBROMIDE 46036789992 No Longer Active Kiley Vang CUPOLA MELTER Active ALPRAZOLAM 0.5 MG ORAL TABS 1 tablet PO q 8 hrs PRN 03/09/08 ALPRAZOLAM 35908647070 No Longer Active Kiley Vang CUPOLA MELTER Active TYLENOL PM EXTRA STRENGTH 1000-50 MG/30ML ORAL LIQD 2 tabs p o at bedtime DIPHENHYDRAMINE-APAP (SLEEP) 47123191156 No Longer Ac tive Kiley Vang CUPOLA MELTER Active TOPAMAX 25 MG TABS 1 qHS x 1 week, then 1 BID x 1 week, then 1 qAM and 2 qHS x 1 week, then 2 BID (migraine prevention) TOPIRAMAT E 98964092715 No Longer Active Cj SARAH Active AMITRIPTYLINE HCL 25 MG TABS 1 tablet at HS AMITRIPTYLINE HCL 14341426283 No Longer Active Cj SARAH Activ e MOBIC 7.5 MG TABS 1 tablet by mouth twice daily MELOXICAM 92493947843 No Longer Active Marielena Estes APRN Active PREDNISONE 20 MG TAB 3 tabs daily for 3 days, 2 t abs daily for 3 days, 1 tab daily for 3 days, 1/2 tab daily for 3 days PREDN ISONE 07716339589 No Longer Active Eric Hester MD Active PREDNISONE 20 MG TAB 2 tabs daily for 3 days, 1 t ab daily for 3 days, 1/2 tab daily for 2 days PREDNISONE 91732191508 No Longer Active Eric Hester MD Active MOBIC 7.5 MG TABS 1 tablet by mouth twice daily 10/30 MOBIC 7.5 MG TABS 437646 MELOXICAM Inactive AMITRIPTYLINE HCL 25 MG TABS 1 tablet at HS AMITRIPTYLINE HCL 25 MG TABS 643369 AMITRIPTYLINE HCL Inactive TOPAMAX 25 MG TABS 1 qHS x 1 week, then 1 BID x 1 week, then 1 qAM and 2 qHS x 1 week, then 2 BID (migraine prevention) TOPAMAX 2 5 MG TABS 763989 TOPIRAMATE Inactive TYLENOL PM EXTRA STRENGTH 1000-50 MG/30ML ORAL LIQD 2 tabs p o at bedtime TYLENOL PM EXTRA STRENGTH 1000-50 MG/30ML ORAL L IQD DIPHENHYDRAMINE-APAP (SLEEP) Inactive ALPRAZOLAM 0.5 MG ORAL TABS 1 tablet PO q 8 hrs PRN 20 03/09/08 ALPRAZOLAM 0.5 MG ORAL TABS 024779 ALPRAZOLAM Inactive CITALOPRAM HYDROBROMIDE 20 MG ORAL TABS 1 tablet PO da asha. Do not miss or skip doses. Contact your provider if you intend to discontinue this medication. CITALOPRAM HYDROBROMIDE 20 MG ORAL TABS 299934 CITALOPRAM HYDROBROMIDE Inactive ALPRAZOLAM 0.5 MG ORAL TABS 1 PO q 8 hrs PRN 1 ALPRAZOLAM 0.5 MG ORAL TABS 122360 ALPRAZOLAM Inactive ZOLPIDEM TARTRATE 10 MG ORAL TABS 1 tab PO at hs PRN insomnia 20 03/09/08 ZOLPIDEM TARTRATE 10 MG ORAL TABS 253808 ZOLPIDEM TARTR ATE Inactive VENLAFAXINE HCL 37.5 MG ORAL TABS Take 1 tab po daily x 7 days then increase to twice daily VENLAFAXINE HCL 37.5 MG ORAL TABS 388068 VENLAFAXINE HCL Inactive FENTANYL 12 MCG/HR TRANS PT72 Apply two patches to boris an dry skin and change every 3 days. FENTANYL 12 MCG/HR TRANS PT72 719482 FENTANYL Inactive TRAMADOL HCL 50 MG ORAL TABS Take 1/2 tab po TID with extra strength tylenol TRAMADOL HCL 50 MG ORAL TABS 749670 TRAMADOL HCL Inactive PROAIR HFA 108 (90 BASE) MCG/ACT AERS 2 puffs four lindsey es a day as needed for wheeze or cough PROAIR HFA 108 (90 BASE) MCG/ACT AERS ALBUTEROL SULFATE Inactive METOPROLOL SUCCINATE ER 25 MG ORAL [id number] 1 tablet daily for elevated blood pressure and heart rate METOPROLOL SUCCI VANDANA ER 25 MG ORAL [id number] METOPROLOL SUCCINATE Inactive PREDNISONE 20 MG TAB 2 tabs daily for 3 days, 1 t ab daily for 3 days, 1/2 tab daily for 2 days PREDNISONE 20 MG TAB 994559 PREDNISON E Inactive PREDNISONE 20 MG TAB 3 tabs daily for 3 days, 2 t abs daily for 3 days, 1 tab daily for 3 days, 1/2 tab daily for 3 days PREDNISONE 20 MG TAB 290275 PREDNISONE Inactive AZITHROMYCIN 250 MG TABS 2 po qd x 1 day, then 1 po qd x 4 days AZITHROMYCIN 250 MG TABS 7679959 AZITHROMYCIN Inactiv e Vital Signs Date Name [...] Panel - Chemistry sodium, serum 141 mmol/L 655-297 8326/06/09 carbon dioxide, venous blood 30.5 mmol/L 21.0-32 [...] Negative;Positive Encounters Code Encounter Date Provider Facility CPT-80265 Level 3 Est. Patient 17:32:44 CDT Ayan goldsmith [facility] [address] CPT-48439 Level 3 Est. Patient 10:14:46 CDT Ayan goldsmith [facility] [address] CPT-56062 Level 3 Est. Patient 10:38:22 CDT Ayan goldsmith [facility] [address] CPT-83143 Level 4 Est. Patient 09:30:39 CDT Ayan goldsmith [facility] [address] CPT-21063 Level 3 Est. Patient 17:31:00 FELT CUTTER Cj Rodriguez [facility] CPT-18864 Level 3 Est. Patient 19:07:23 CDT Cj Rodriguez [facility] CPT-86437 Level 3 Est. Patient 16:45:43 FELT CUTTER Marielena Barrett APRN [facility] CPT-33347 Level 3 Est. Patient 14:52:49 FELT CUTTER Eric muhammad MD [facility] CPT-45150 Level 3 Est. Patient 15:41:51 CDT Eric muhammad MD [facility] Procedures Code Procedure Name Date Entry Date Standard Desc ription CPT-71699 Chest 2V Frontal and Lat 10:48:26 CDT 01/08
--- OUTSIDE RECORDS SUMMARY | 2020-04-05 22:10 | XMS REPORT | Clinical Summary ---
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 PATIENT SERVICES MANAGER Insomnia, unspecified Depression 311 Active Marielena Estes [...] Active Ayan goldsmith DO Preoperative examination, unspecified Medication List Medication Instructions Start Date Stop Date Generic Name NDC Status Provider Patient Instruction PERCOCET 5-325 MG ORAL TABS 1 tab 4 times daily PRN Sparingly 03/09 OXYCODONE-ACETAMINOPHEN 67233372389 Active Latha Huertas RPT,RMA Active METOPROLOL SUCCINATE ER 25 MG ORAL [id number] 1 tablet daily for elevated blood pressure and heart rate METOPROLOL SUCCINATE 517570976 10 No Longer Active Ayan Devi DO Active METOPROLOL SUCCINATE 50 MG TB24 1 tablet by mouth daily METOPROLOL SUCCINATE 35084478643 Active Ayan Devi DO Active PROAIR HFA 108 (90 BASE) MCG/ACT AERS 2 puffs four lindsey es a day as needed for wheeze or cough ALBUTEROL SULFATE 11994448872 No Long er Active Ayan Devi DO Active AZITHROMYCIN 250 MG TABS 2 po qd x 1 day, then 1 po qd x 4 days AZITHROMYCIN 34974823755 No Longer Active Ayan Devi DO A ctive TRAMADOL HCL 50 MG ORAL TABS Take 1/2 tab po TID with extra strength tylenol TRAMADOL HCL 79817840103 No Longer Active Ayan Devi DO Active FENTANYL 12 MCG/HR TRANS PT72 Apply two patches to boris an dry skin and change every 3 days. FENTANYL 26582697879 No Longer Active Monica Devi DO Active VENLAFAXINE HCL ER 75 MG ORAL [id number] 1 capsule daily for anxiety/depression VENLAFAXINE HCL 67089990683 Active Ayan Devi DO Active VENLAFAXINE HCL 37.5 MG ORAL TABS Take 1 tab po daily x 7 days then increase to twice daily VENLAFAXINE HCL 82916055169 No Longer Active Ayan eDvi DO Active ZOLPIDEM TARTRATE 10 MG ORAL TABS 1 tab PO at hs PRN insomnia 20 03/09/08 ZOLPIDEM TARTRATE 12936365374 No Longer Active Ayan Devi DO Active ALPRAZOLAM 0.5 MG ORAL TABS 1 PO q 8 hrs PRN AL PRAZOLAM 10512618847 No Longer Active Ayan Devi DO Active ESCITALOPRAM OXALATE 10 MG ORAL TABS 1 tab PO daily ESCITALOPRAM OXALATE 48077422309 No Longer Active Cj Grijalva e CITALOPRAM HYDROBROMIDE 20 MG ORAL TABS 1 tablet PO da asha. Do not miss or skip doses. Contact your provider if you intend to discontinue this medication. CITALOPRAM HYDROBROMIDE 43095690712 No Longer Active Kiley Vang LPN Active ALPRAZOLAM 0.5 MG ORAL TABS 1 tablet PO q 8 hrs PRN 03/09/08 ALPRAZOLAM 29120152134 No Longer Active Kiley Vang LPN Active TYLENOL PM EXTRA STRENGTH 1000-50 MG/30ML ORAL LIQD 2 tabs p o at bedtime DIPHENHYDRAMINE-APAP (SLEEP) 03011110340 No Longer Ac tive Kiley Vang LPN Active TOPAMAX 25 MG TABS 1 qHS x 1 week, then 1 BID x 1 week, then 1 qAM and 2 qHS x 1 week, then 2 BID (migraine prevention) TOPIRAMAT E 81644682953 No Longer Active Cj SARAH Active AMITRIPTYLINE HCL 25 MG TABS 1 tablet at HS AMITRIPTYLINE HCL 09886758469 No Longer Active Cj Grijalva e MOBIC 7.5 MG TABS 1 tablet by mouth twice daily MELOXICAM 61304094055 No Longer Active Marielena Estes APRN Active PREDNISONE 20 MG TAB 3 tabs daily for 3 days, 2 t abs daily for 3 days, 1 tab daily for 3 days, 1/2 tab daily for 3 days PREDN ISONE 57068198853 No Longer Active Eric Hester MD Active PREDNISONE 20 MG TAB 2 tabs daily for 3 days, 1 t ab daily for 3 days, 1/2 tab daily for 2 days PREDNISONE 35940618999 No Longer Active Eric Hester MD Active MOBIC 7.5 MG TABS 1 tablet by mouth twice daily 2013/10/30 MOBIC 7.5 MG TABS 114463 MELOXICAM Inactive AMITRIPTYLINE HCL 25 MG TABS 1 tablet at HS AMITRIPTYLINE HCL 25 MG TABS 662512 AMITRIPTYLINE HCL Inactive TOPAMAX 25 MG TABS 1 qHS x 1 week, then 1 BID x 1 week, then 1 qAM and 2 qHS x 1 week, then 2 BID (migraine prevention) TOPAMAX 2 5 MG TABS 678107 TOPIRAMATE Inactive TYLENOL PM EXTRA STRENGTH 1000-50 MG/30ML ORAL LIQD 2 tabs p o at bedtime TYLENOL PM EXTRA STRENGTH 1000-50 MG/30ML ORAL L IQD DIPHENHYDRAMINE-APAP (SLEEP) Inactive ALPRAZOLAM 0.5 MG ORAL TABS 1 tablet PO q 8 hrs PRN 20 03/09/08 ALPRAZOLAM 0.5 MG ORAL TABS 505265 ALPRAZOLAM Inactive CITALOPRAM HYDROBROMIDE 20 MG ORAL TABS 1 tablet PO da asha. Do not miss or skip doses. Contact your provider if you intend to discontinue this medication. CITALOPRAM HYDROBROMIDE 20 MG ORAL TABS 562099 CITALOPRAM HYDROBROMIDE Inactive ALPRAZOLAM 0.5 MG ORAL TABS 1 PO q 8 hrs PRN 1 ALPRAZOLAM 0.5 MG ORAL TABS 201911 ALPRAZOLAM Inactive ZOLPIDEM TARTRATE 10 MG ORAL TABS 1 tab PO at hs PRN insomnia 20 03/09/08 ZOLPIDEM TARTRATE 10 MG ORAL TABS 269493 ZOLPIDEM TARTR ATE Inactive VENLAFAXINE HCL 37.5 MG ORAL TABS Take 1 tab po daily x 7 days then increase to twice daily VENLAFAXINE HCL 37.5 MG ORAL TABS 908849 VENLAFAXINE HCL Inactive FENTANYL 12 MCG/HR TRANS PT72 Apply two patches to boris an dry skin and change every 3 days. FENTANYL 12 MCG/HR TRANS PT72 879099 FENTANYL Inactive TRAMADOL HCL 50 MG ORAL TABS Take 1/2 tab po TID with extra strength tylenol TRAMADOL HCL 50 MG ORAL TABS 382959 TRAMADOL HCL Inactive PROAIR HFA 108 (90 BASE) MCG/ACT AERS 2 puffs four lindsey es a day as needed for wheeze or cough PROAIR HFA 108 (90 BASE) MCG/ACT AERS ALBUTEROL SULFATE Inactive METOPROLOL SUCCINATE ER 25 MG ORAL [id number] 1 tablet daily for elevated blood pressure and heart rate METOPROLOL SUCCI VANDANA ER 25 MG ORAL [id number] METOPROLOL SUCCINATE Inactive PREDNISONE 20 MG TAB 2 tabs daily for 3 days, 1 t ab daily for 3 days, 1/2 tab daily for 2 days PREDNISONE 20 MG TAB 483226 PREDNISON E Inactive PREDNISONE 20 MG TAB 3 tabs daily for 3 days, 2 t abs daily for 3 days, 1 tab daily for 3 days, 1/2 tab daily for 3 days PREDNISONE 20 MG TAB 631138 PREDNISONE Inactive AZITHROMYCIN 250 MG TABS 2 po qd x 1 day, then 1 po qd x 4 days AZITHROMYCIN 250 MG TABS 1250850 AZITHROMYCIN Inactiv e Vital Signs Date Name [...] Panel - Chemistry sodium, serum 141 mmol/L 403-861 3575/06/09 carbon dioxide, venous blood 30.5 mmol/L 21.0-32 [...] Negative;Positive Encounters Code Encounter Date Provider Facility CPT-96025 Level 3 Est. Patient 10:14:46 CDT Ayan goldsmith [facility] CPT-94884 Level 3 Est. Patient 10:38:22 CDT Ayan goldsmith [facility] CPT-31274 Level 4 Est. Patient 09:30:39 CDT Ayan goldsmith [facility] CPT-93285 Level 3 Est. Patient 17:31:00 EXCHANGE ADMINISTRATOR Cj Rodriguez [facility] [place] CPT-32344 Level 3 Est. Patient 19:07:23 CDT Cj Rodriguez [facility] CPT-43885 Level 3 Est. Patient 16:45:43 EXCHANGE ADMINISTRATOR Marielena Barrett APRN [facility] CPT-26835 Level 3 Est. Patient 14:52:49 EXCHANGE ADMINISTRATOR Eric muhammad MD [facility] CPT-89713 Level 3 Est. Patient 15:41:51 CDT Eric muhammad MD [facility] Procedures Code Procedure Name Date Entry Date Standard Desc ription CPT-99830 Chest 2V Frontal and Lat 10:48:26 CDT 01/08
--- OUTSIDE RECORDS SUMMARY | 2020-04-05 22:10 | XMS REPORT | Clinical Summary ---
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 Estes ATTORNEY GENERAL Insomnia, unspecified Depression 311 Active Marielena Estes [...] Ayan Devi DO P neumonia, organism unspecified Medication List Medication Instructions Start Date Stop Date Generic Name NDC Status Provider Patient Instruction PROAIR HFA 108 (90 BASE) MCG/ACT AERS 2 puffs four lindsey es a day as needed for wheeze or cough ALBUTEROL SULFATE 32992478885 Active B lebron Devi DO Active METOPROLOL SUCCINATE ER 25 MG ORAL [id number] 1 tablet daily for elevated blood pressure and heart rate METOPROLOL SUCCINATE 51835016380 A ctive Ayan Devi DO Active AZITHROMYCIN 250 MG TABS 2 po qd x 1 day, then 1 po qd x 4 days AZITHROMYCIN 74833918201 Active Ayan Devi DO Active TRAMADOL HCL 50 MG ORAL TABS Take 1/2 tab po TID with extra strength tylenol TRAMADOL HCL 58659054131 No Longer Active Ayan Devi DO Active FENTANYL 12 MCG/HR TRANS PT72 Apply two patches to boris an dry skin and change every 3 days. FENTANYL 20980799856 No Longer Active Monica Devi DO Active VENLAFAXINE HCL ER 75 MG ORAL [id number] 1 capsule daily for anxiety/depression VENLAFAXINE HCL 70856941280 Active Ayan Devi DO Active VENLAFAXINE HCL 37.5 MG ORAL TABS Take 1 tab po daily x 7 days then increase to twice daily VENLAFAXINE HCL 45024772138 No Longer Active Ayan Devi DO Active ZOLPIDEM TARTRATE 10 MG ORAL TABS 1 tab PO at hs PRN insomnia 20 03/09/08 ZOLPIDEM TARTRATE 72291248339 No Longer Active Ayan Devi DO Active ALPRAZOLAM 0.5 MG ORAL TABS 1 PO q 8 hrs PRN AL PRAZOLAM 20271492605 No Longer Active Ayan Devi DO Active ESCITALOPRAM OXALATE 10 MG ORAL TABS 1 tab PO daily ESCITALOPRAM OXALATE 55514245473 No Longer Active Cj Valencia CITALOPRAM HYDROBROMIDE 20 MG ORAL TABS 1 tablet PO da asha. Do not miss or skip doses. Contact your provider if you intend to discontinue this medication. CITALOPRAM HYDROBROMIDE 45343158638 No Longer Active Kiley Naff DERMATOLOGY SALES REPRESENTATIVE Active ALPRAZOLAM 0.5 MG ORAL TABS 1 tablet PO q 8 hrs PRN 03/09/08 ALPRAZOLAM 08086908815 No Longer Active Kiley Vang DERMATOLOGY SALES REPRESENTATIVE Active TYLENOL PM EXTRA STRENGTH 1000-50 MG/30ML ORAL LIQD 2 tabs p o at bedtime DIPHENHYDRAMINE-APAP (SLEEP) 85393335001 No Longer Ac tive Kiley Vang DERMATOLOGY SALES REPRESENTATIVE Active TOPAMAX 25 MG TABS 1 qHS x 1 week, then 1 BID x 1 week, then 1 qAM and 2 qHS x 1 week, then 2 BID (migraine prevention) TOPIRAMAT E 40079251552 No Longer Active Cj SARAH Active AMITRIPTYLINE HCL 25 MG TABS 1 tablet at HS AMITRIPTYLINE HCL 58965903850 No Longer Active Cj SARAH Activ e MOBIC 7.5 MG TABS 1 tablet by mouth twice daily MELOXICAM 83520254958 No Longer Active Marielena Estes APRN Active PREDNISONE 20 MG TAB 3 tabs daily for 3 days, 2 t abs daily for 3 days, 1 tab daily for 3 days, 1/2 tab daily for 3 days PREDN ISONE 88850543285 No Longer Active Eric Hester MD Active PREDNISONE 20 MG TAB 2 tabs daily for 3 days, 1 t ab daily for 3 days, 1/2 tab daily for 2 days PREDNISONE 17276060935 No Longer Active Eric Hester MD Active MOBIC 7.5 MG TABS 1 tablet by mouth twice daily 10/30 MOBIC 7.5 MG TABS 212673 MELOXICAM Inactive AMITRIPTYLINE HCL 25 MG TABS 1 tablet at HS AMITRIPTYLINE HCL 25 MG TABS 839595 AMITRIPTYLINE HCL Inactive TOPAMAX 25 MG TABS 1 qHS x 1 week, then 1 BID x 1 week, then 1 qAM and 2 qHS x 1 week, then 2 BID (migraine prevention) TOPAMAX 2 5 MG TABS 240218 TOPIRAMATE Inactive TYLENOL PM EXTRA STRENGTH 1000-50 MG/30ML ORAL LIQD 2 tabs p o at bedtime TYLENOL PM EXTRA STRENGTH 1000-50 MG/30ML ORAL L IQD DIPHENHYDRAMINE-APAP (SLEEP) Inactive ALPRAZOLAM 0.5 MG ORAL TABS 1 tablet PO q 8 hrs PRN 20 03/09/08 ALPRAZOLAM 0.5 MG ORAL TABS 786576 ALPRAZOLAM Inactive CITALOPRAM HYDROBROMIDE 20 MG ORAL TABS 1 tablet PO da asha. Do not miss or skip doses. Contact your provider if you intend to discontinue this medication. CITALOPRAM HYDROBROMIDE 20 MG ORAL TABS 638670 CITALOPRAM HYDROBROMIDE Inactive ALPRAZOLAM 0.5 MG ORAL TABS 1 PO q 8 hrs PRN 1 ALPRAZOLAM 0.5 MG ORAL TABS 644565 ALPRAZOLAM Inactive ZOLPIDEM TARTRATE 10 MG ORAL TABS 1 tab PO at hs PRN insomnia 20 03/09/08 ZOLPIDEM TARTRATE 10 MG ORAL TABS 703946 ZOLPIDEM TARTR ATE Inactive VENLAFAXINE HCL 37.5 MG ORAL TABS Take 1 tab po daily x 7 days then increase to twice daily VENLAFAXINE HCL 37.5 MG ORAL TABS 317049 VENLAFAXINE HCL Inactive FENTANYL 12 MCG/HR TRANS PT72 Apply two patches to boris an dry skin and change every 3 days. FENTANYL 12 MCG/HR TRANS PT72 357924 FENTANYL Inactive TRAMADOL HCL 50 MG ORAL TABS Take 1/2 tab po TID with extra strength tylenol TRAMADOL HCL 50 MG ORAL TABS 309615 TRAMADOL HCL Inactive PREDNISONE 20 MG TAB 2 tabs daily for 3 days, 1 t ab daily for 3 days, 1/2 tab daily for 2 days PREDNISONE 20 MG TAB 255197 PREDNISON E Inactive PREDNISONE 20 MG TAB 3 tabs daily for 3 days, 2 t abs daily for 3 days, 1 tab daily for 3 days, 1/2 tab daily for 3 days PREDNISONE 20 MG TAB 473976 PREDNISONE Inactive Vital Signs Date Name Value Unit Range Description blood pressure, diastolic - 8462-4 95 mm[Hg] [...] Measured Encounters Code Encounter Date Provider Facility CPT-35571 Level 3 Est. Patient 10:38:22 CDT Ayan goldsmith [facility] CPT-97018 Level 4 Est. Patient 09:30:39 CDT Ayan goldsmith [facility] CPT-66761 Level 3 Est. Patient 17:31:00 LOADING RACK SUPERVISOR Cj Rodriguez [facility] CPT-88109 Level 3 Est. Patient 19:07:23 CDT Cj Rodriguez [facility] CPT-96451 Level 3 Est. Patient 16:45:43 LOADING RACK SUPERVISOR Marielena Barrett APRN [facility] CPT-56251 Level 3 Est. Patient 14:52:49 LOADING RACK SUPERVISOR Eric muhammad MD [facility] CPT-43453 Level 3 Est. Patient 15:41:51 CDT Eric muhammad MD [facility] Procedures Code Procedure Name Date Entry Date Standard Desc ription CPT-35601 Chest 2V Frontal and Lat 10:48:26 CDT 01/08
--- OUTSIDE RECORDS SUMMARY | 2020-04-05 22:10 | XMS REPORT | Clinical Summary ---
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 Insomnia, unspecified Depression 311 Active Marielena Estes [...] Generic Name NDC Status Provider Patient Instruction METOPROLOL SUCCINATE ER 25 MG ORAL [id number] 1 tablet daily for elevated blood pressure and heart rate METOPROLOL SUCCINATE 830268689 10 No Longer Active Ayan Devi DO Active METOPROLOL SUCCINATE 50 MG TB24 1 tablet by mouth daily METOPROLOL SUCCINATE 35223457229 Active Ayan Devi DO Active PROAIR HFA 108 (90 BASE) MCG/ACT AERS 2 puffs four lindsey es a day as needed for wheeze or cough ALBUTEROL SULFATE 77799861072 No Long er Active Ayan Devi DO Active AZITHROMYCIN 250 MG TABS 2 po qd x 1 day, then 1 po qd x 4 days AZITHROMYCIN 11420540658 No Longer Active Ayan Devi DO A ctive TRAMADOL HCL 50 MG ORAL TABS Take 1/2 tab po TID with extra strength tylenol TRAMADOL HCL 40516461788 No Longer Active Ayan Devi DO Active FENTANYL 12 MCG/HR TRANS PT72 Apply two patches to boris an dry skin and change every 3 days. FENTANYL 99180873393 No Longer Active Monica Devi DO Active VENLAFAXINE HCL ER 75 MG ORAL [id number] 1 capsule daily for anxiety/depression VENLAFAXINE HCL 67643450609 Active Ayan Devi DO Active VENLAFAXINE HCL 37.5 MG ORAL TABS Take 1 tab po daily x 7 days then increase to twice daily VENLAFAXINE HCL 71141033306 No Longer Active Ayan Devi DO Active ZOLPIDEM TARTRATE 10 MG ORAL TABS 1 tab PO at hs PRN insomnia 20 03/09/08 ZOLPIDEM TARTRATE 76222825860 No Longer Active Ayan Devi DO Active ALPRAZOLAM 0.5 MG ORAL TABS 1 PO q 8 hrs PRN AL PRAZOLAM 73234205698 No Longer Active Ayan Devi DO Active ESCITALOPRAM OXALATE 10 MG ORAL TABS 1 tab PO daily ESCITALOPRAM OXALATE 43905596948 No Longer Active Cj SARAH Activ e CITALOPRAM HYDROBROMIDE 20 MG ORAL TABS 1 tablet PO da asha. Do not miss or skip doses. Contact your provider if you intend to discontinue this medication. CITALOPRAM HYDROBROMIDE 57526693624 No Longer Active Kiley Vang HOSTED SERVICES ANALYST Active ALPRAZOLAM 0.5 MG ORAL TABS 1 tablet PO q 8 hrs PRN 03/09/08 ALPRAZOLAM 85614634150 No Longer Active Kiley Vang HOSTED SERVICES ANALYST Active TYLENOL PM EXTRA STRENGTH 1000-50 MG/30ML ORAL LIQD 2 tabs p o at bedtime DIPHENHYDRAMINE-APAP (SLEEP) 36588798705 No Longer Ac tive Kiley Kelylalessandra HOSTED SERVICES ANALYST Active TOPAMAX 25 MG TABS 1 qHS x 1 week, then 1 BID x 1 week, then 1 qAM and 2 qHS x 1 week, then 2 BID (migraine prevention) TOPIRAMAT E 09150301042 No Longer Active Cj SARAH Active AMITRIPTYLINE HCL 25 MG TABS 1 tablet at HS AMITRIPTYLINE HCL 68978642516 No Longer Active Cj Grijalva e MOBIC 7.5 MG TABS 1 tablet by mouth twice daily MELOXICAM 10428813539 No Longer Active Marielena Estes APRN Active PREDNISONE 20 MG TAB 3 tabs daily for 3 days, 2 t abs daily for 3 days, 1 tab daily for 3 days, 1/2 tab daily for 3 days PREDN ISONE 17470106754 No Longer Active Eric Hester MD Active PREDNISONE 20 MG TAB 2 tabs daily for 3 days, 1 t ab daily for 3 days, 1/2 tab daily for 2 days PREDNISONE 60191706641 No Longer Active Eric Hester MD Active MOBIC 7.5 MG TABS 1 tablet by mouth twice daily 10/30 MOBIC 7.5 MG TABS 665489 MELOXICAM Inactive AMITRIPTYLINE HCL 25 MG TABS 1 tablet at HS AMITRIPTYLINE HCL 25 MG TABS 837887 AMITRIPTYLINE HCL Inactive TOPAMAX 25 MG TABS 1 qHS x 1 week, then 1 BID x 1 week, then 1 qAM and 2 qHS x 1 week, then 2 BID (migraine prevention) TOPAMAX 2 5 MG TABS 131156 TOPIRAMATE Inactive TYLENOL PM EXTRA STRENGTH 1000-50 MG/30ML ORAL LIQD 2 tabs p o at bedtime TYLENOL PM EXTRA STRENGTH 1000-50 MG/30ML ORAL L IQD DIPHENHYDRAMINE-APAP (SLEEP) Inactive ALPRAZOLAM 0.5 MG ORAL TABS 1 tablet PO q 8 hrs PRN 20 03/09/08 ALPRAZOLAM 0.5 MG ORAL TABS 386743 ALPRAZOLAM Inactive CITALOPRAM HYDROBROMIDE 20 MG ORAL TABS 1 tablet PO da asha. Do not miss or skip doses. Contact your provider if you intend to discontinue this medication. CITALOPRAM HYDROBROMIDE 20 MG ORAL TABS 947955 CITALOPRAM HYDROBROMIDE Inactive ALPRAZOLAM 0.5 MG ORAL TABS 1 PO q 8 hrs PRN 1 ALPRAZOLAM 0.5 MG ORAL TABS 180037 ALPRAZOLAM Inactive ZOLPIDEM TARTRATE 10 MG ORAL TABS 1 tab PO at hs PRN insomnia 20 03/09/08 ZOLPIDEM TARTRATE 10 MG ORAL TABS 518824 ZOLPIDEM TARTR ATE Inactive VENLAFAXINE HCL 37.5 MG ORAL TABS Take 1 tab po daily x 7 days then increase to twice daily VENLAFAXINE HCL 37.5 MG ORAL TABS 735817 VENLAFAXINE HCL Inactive FENTANYL 12 MCG/HR TRANS PT72 Apply two patches to boris an dry skin and change every 3 days. FENTANYL 12 MCG/HR TRANS PT72 649688 FENTANYL Inactive TRAMADOL HCL 50 MG ORAL TABS Take 1/2 tab po TID with extra strength tylenol TRAMADOL HCL 50 MG ORAL TABS 632788 TRAMADOL HCL Inactive PROAIR HFA 108 (90 BASE) MCG/ACT AERS 2 puffs four lindsey es a day as needed for wheeze or cough PROAIR HFA 108 (90 BASE) MCG/ACT AERS ALBUTEROL SULFATE Inactive METOPROLOL SUCCINATE ER 25 MG ORAL [id number] 1 tablet daily for elevated blood pressure and heart rate METOPROLOL SUCCI VANDANA ER 25 MG ORAL [id number] METOPROLOL SUCCINATE Inactive PREDNISONE 20 MG TAB 2 tabs daily for 3 days, 1 t ab daily for 3 days, 1/2 tab daily for 2 days PREDNISONE 20 MG TAB 405973 PREDNISON E Inactive PREDNISONE 20 MG TAB 3 tabs daily for 3 days, 2 t abs daily for 3 days, 1 tab daily for 3 days, 1/2 tab daily for 3 days PREDNISONE 20 MG TAB 393790 PREDNISONE Inactive AZITHROMYCIN 250 MG TABS 2 po qd x 1 day, then 1 po qd x 4 days AZITHROMYCIN 250 MG TABS 6731855 AZITHROMYCIN Inactiv e Vital Signs Date Name [...] Panel - Chemistry sodium, serum 141 mmol/L 036-017 2326/06/09 carbon dioxide, venous blood 30.5 mmol/L 21.0-32 [...] Negative;Positive Encounters Code Encounter Date Provider Facility CPT-46335 Level 3 Est. Patient 10:14:46 CDT Ayan goldsmith [facility] CPT-59752 Level 3 Est. Patient 10:38:22 CDT Ayan goldsmith [facility] CPT-00235 Level 4 Est. Patient 09:30:39 CDT Ayan goldsmith [facility] CPT-67876 Level 3 Est. Patient 17:31:00 ECOLOGICAL TECHNICAL OFFICER Cj Rodriguez [facility] CPT-34010 Level 3 Est. Patient 19:07:23 CDT Cj Rodriguez [facility] CPT-35305 Level 3 Est. Patient 16:45:43 ECOLOGICAL TECHNICAL OFFICER Marielena Barrett APRN [facility] CPT-61515 Level 3 Est. Patient 14:52:49 ECOLOGICAL TECHNICAL OFFICER Eric muhammad MD [facility] CPT-76889 Level 3 Est. Patient 15:41:51 CDT Eric muhammad MD [facility] Procedures Code Procedure Name Date Entry Date Standard Desc ription CPT-92363 Chest 2V Frontal and Lat 10:48:26 CDT 01/08
--- OUTSIDE RECORDS SUMMARY | 2020-04-05 22:10 | XMS REPORT | Clinical Summary ---
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 FENTANYL [id number] Active Latha Leone ps RPT,RMA Active TRAMADOL HCL 50 MG ORAL TABS Take 1/2 tab po TID with extra strength tylenol TRAMADOL HCL 90288568113 Active Raven Wen MA Active METOPROLOL SUCCINATE ER 25 MG ORAL [id number] 1/2 table t daily for elevated blood pressure and heart rate METOPROLOL SUCCINATE 24611716427 A ctive Ayan Devi DO Active VENLAFAXINE HCL ER 75 MG ORAL [id number] 1 capsule daily for anxiety/depression VENLAFAXINE HCL 08467502529 Active Ayan Devi DO Active VENLAFAXINE HCL 37.5 MG ORAL TABS Take 1 tab po daily x 7 days then increase to twice daily VENLAFAXINE HCL 01232287797 No Longer Active Ayan Devi DO Active ZOLPIDEM TARTRATE 10 MG ORAL TABS 1 tab PO at hs PRN insomnia 20 03/09/08 ZOLPIDEM TARTRATE 95915696732 No Longer Active Ayan Dvei DO Active ALPRAZOLAM 0.5 MG ORAL TABS 1 PO q 8 hrs PRN AL PRAZOLAM 54430760148 No Longer Active Ayan Devi DO Active ESCITALOPRAM OXALATE 10 MG ORAL TABS 1 tab PO daily ESCITALOPRAM OXALATE 87695634159 No Longer Active Cj Grijalva e CITALOPRAM HYDROBROMIDE 20 MG ORAL TABS 1 tablet PO da asha. Do not miss or skip doses. Contact your provider if you intend to discontinue this medication. CITALOPRAM HYDROBROMIDE 56201211916 No Longer Active Kiley Naff BASTING CLEANER Active ALPRAZOLAM 0.5 MG ORAL TABS 1 tablet PO q 8 hrs PRN 20 03/09/08 ALPRAZOLAM 27054266282 No Longer Active Kiley Naff BASTING CLEANER Active TYLENOL PM EXTRA STRENGTH 1000-50 MG/30ML ORAL LIQD 2 tabs p o at bedtime DIPHENHYDRAMINE-APAP (SLEEP) 43291281311 No Longer Ac tive Kiley Naff BASTING CLEANER Active TOPAMAX 25 MG TABS 1 qHS x 1 week, then 1 BID x 1 week, then 1 qAM and 2 qHS x 1 week, then 2 BID (migraine prevention) TOPIRAMAT E 07566772270 No Longer Active Cj SARAH Active AMITRIPTYLINE HCL 25 MG TABS 1 tablet at HS AMITRIPTYLINE HCL 10502157755 No Longer Active Cj SARAH Activ e MOBIC 7.5 MG TABS 1 tablet by mouth twice daily MELOXICAM 50745772417 No Longer Active Marielena Estes APRN Active PREDNISONE 20 MG TAB 3 tabs daily for 3 days, 2 t abs daily for 3 days, 1 tab daily for 3 days, 1/2 tab daily for 3 days PREDN ISONE 97635174350 No Longer Active Eric Hester MD Active PREDNISONE 20 MG TAB 2 tabs daily for 3 days, 1 t ab daily for 3 days, 1/2 tab daily for 2 days PREDNISONE 95050497529 No Longer Active Eric Hester MD Active MOBIC 7.5 MG TABS 1 tablet by mouth twice daily 10/30 MOBIC 7.5 MG TABS 326136 MELOXICAM Inactive AMITRIPTYLINE HCL 25 MG TABS 1 tablet at HS AMITRIPTYLINE HCL 25 MG TABS 483849 AMITRIPTYLINE HCL Inactive TOPAMAX 25 MG TABS 1 qHS x 1 week, then 1 BID x 1 week, then 1 qAM and 2 qHS x 1 week, then 2 BID (migraine prevention) TOPAMAX 2 5 MG TABS 580648 TOPIRAMATE Inactive TYLENOL PM EXTRA STRENGTH 1000-50 MG/30ML ORAL LIQD 2 tabs p o at bedtime TYLENOL PM EXTRA STRENGTH 1000-50 MG/30ML ORAL L IQD DIPHENHYDRAMINE-APAP (SLEEP) Inactive ALPRAZOLAM 0.5 MG ORAL TABS 1 tablet PO q 8 hrs PRN 03/09/08 ALPRAZOLAM 0.5 MG ORAL TABS 545209 ALPRAZOLAM Inactive CITALOPRAM HYDROBROMIDE 20 MG ORAL TABS 1 tablet PO da asah. Do not miss or skip doses. Contact your provider if you intend to discontinue this medication. CITALOPRAM HYDROBROMIDE 20 MG ORAL TABS 129270 CITALOPRAM HYDROBROMIDE Inactive ALPRAZOLAM 0.5 MG ORAL TABS 1 PO q 8 hrs PRN 1 ALPRAZOLAM 0.5 MG ORAL TABS 055646 ALPRAZOLAM Inactive ZOLPIDEM TARTRATE 10 MG ORAL TABS 1 tab PO at hs PRN insomnia 20 03/09/08 ZOLPIDEM TARTRATE 10 MG ORAL TABS 903221 ZOLPIDEM TARTR ATE Inactive VENLAFAXINE HCL 37.5 MG ORAL TABS Take 1 tab po daily x 7 days then increase to twice daily VENLAFAXINE HCL 37.5 MG ORAL TABS 427826 VENLAFAXINE HCL Inactive PREDNISONE 20 MG TAB 2 tabs daily for 3 days, 1 t ab daily for 3 days, 1/2 tab daily for 2 days PREDNISONE 20 MG TAB 407304 PREDNISON E Inactive PREDNISONE 20 MG TAB 3 tabs daily for 3 days, 2 t abs daily for 3 days, 1 tab daily for 3 days, 1/2 tab daily for 3 days PREDNISONE 20 MG TAB 847461 PREDNISONE Inactive Vital Signs Date Name Value [...] Measured Encounters Code Encounter Date Provider Facility CPT-48991 Level 4 Est. Patient 09:30:39 CDT Ayan goldsmith DO [facility] CPT-60543 Level 3 Est. 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 Patient 19:07:23 CDT Cj Rodriguez [facility] CPT-22207 Level 3 Est. Patient 16:45:43 BOBCAT DRIVER/LABOR Marielena Barrett APRN [facility] CPT-45144 Level 3 Est. Patient 14:52:49 BOBCAT DRIVER/LABOR Eric muhammad MD [facility] CPT-80905 Level 3 Est. Patient 15:41:51 CDT Eric muhammad MD [facility]
--- OUTSIDE RECORDS SUMMARY | 2020-04-05 22:10 | XMS REPORT | Clinical Summary ---
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 FENTANYL 72227120999 Active Raven Wen MA Active TRAMADOL HCL 50 MG ORAL TABS Take 1/2 tab po TID with extra strength tylenol TRAMADOL HCL 83335390884 Active Raven Wen MA Active METOPROLOL SUCCINATE ER 25 MG ORAL [id number] 1/2 table t daily for elevated blood pressure and heart rate METOPROLOL SUCCINATE 80787583406 A ctive Ayan Devi DO Active VENLAFAXINE HCL ER 75 MG ORAL [id number] 1 capsule daily for anxiety/depression VENLAFAXINE HCL 02747169118 Active Ayan Devi DO Active VENLAFAXINE HCL 37.5 MG ORAL TABS Take 1 tab po daily x 7 days then increase to twice daily VENLAFAXINE HCL 83150611761 No Longer Active Ayan Devi DO Active ZOLPIDEM TARTRATE 10 MG ORAL TABS 1 tab PO at hs PRN insomnia 20 03/09/08 ZOLPIDEM TARTRATE 16008750720 No Longer Active Ayan Devi DO Active ALPRAZOLAM 0.5 MG ORAL TABS 1 PO q 8 hrs PRN AL PRAZOLAM 61647604176 No Longer Active Ayan Devi DO Active ESCITALOPRAM OXALATE 10 MG ORAL TABS 1 tab PO daily ESCITALOPRAM OXALATE 88398080169 No Longer Active Cj Grijalva e CITALOPRAM HYDROBROMIDE 20 MG ORAL TABS 1 tablet PO da asha. Do not miss or skip doses. Contact your provider if you intend to discontinue this medication. CITALOPRAM HYDROBROMIDE 85981656860 No Longer Active Kiley Naff MEAT CARVER Active ALPRAZOLAM 0.5 MG ORAL TABS 1 tablet PO q 8 hrs PRN 20 03/09/08 ALPRAZOLAM 84842160020 No Longer Active Kiley Naff MEAT CARVER Active TYLENOL PM EXTRA STRENGTH 1000-50 MG/30ML ORAL LIQD 2 tabs p o at bedtime DIPHENHYDRAMINE-APAP (SLEEP) 44945636412 No Longer Ac tive Kiley Naff MEAT CARVER Active TOPAMAX 25 MG TABS 1 qHS x 1 week, then 1 BID x 1 week, then 1 qAM and 2 qHS x 1 week, then 2 BID (migraine prevention) TOPIRAMAT E 44300743003 No Longer Active Cj SARAH Active AMITRIPTYLINE HCL 25 MG TABS 1 tablet at HS AMITRIPTYLINE HCL 20340107765 No Longer Active Cj SARAH Activ e MOBIC 7.5 MG TABS 1 tablet by mouth twice daily MELOXICAM 35138512917 No Longer Active Marielena Estes APRN Active PREDNISONE 20 MG TAB 3 tabs daily for 3 days, 2 t abs daily for 3 days, 1 tab daily for 3 days, 1/2 tab daily for 3 days PREDN ISONE 20399412985 No Longer Active Eric Hester MD Active PREDNISONE 20 MG TAB 2 tabs daily for 3 days, 1 t ab daily for 3 days, 1/2 tab daily for 2 days PREDNISONE 30416215360 No Longer Active Eric Hester MD Active MOBIC 7.5 MG TABS 1 tablet by mouth twice daily 10/30 MOBIC 7.5 MG TABS 089307 MELOXICAM Inactive AMITRIPTYLINE HCL 25 MG TABS 1 tablet at HS AMITRIPTYLINE HCL 25 MG TABS 484669 AMITRIPTYLINE HCL Inactive TOPAMAX 25 MG TABS 1 qHS x 1 week, then 1 BID x 1 week, then 1 qAM and 2 qHS x 1 week, then 2 BID (migraine prevention) TOPAMAX 2 5 MG TABS 478175 TOPIRAMATE Inactive TYLENOL PM EXTRA STRENGTH 1000-50 MG/30ML ORAL LIQD 2 tabs p o at bedtime TYLENOL PM EXTRA STRENGTH 1000-50 MG/30ML ORAL L IQD DIPHENHYDRAMINE-APAP (SLEEP) Inactive ALPRAZOLAM 0.5 MG ORAL TABS 1 tablet PO q 8 hrs PRN 03/09/08 ALPRAZOLAM 0.5 MG ORAL TABS 983193 ALPRAZOLAM Inactive CITALOPRAM HYDROBROMIDE 20 MG ORAL TABS 1 tablet PO da asha. Do not miss or skip doses. Contact your provider if you intend to discontinue this medication. CITALOPRAM HYDROBROMIDE 20 MG ORAL TABS 353693 CITALOPRAM HYDROBROMIDE Inactive ALPRAZOLAM 0.5 MG ORAL TABS 1 PO q 8 hrs PRN 1 ALPRAZOLAM 0.5 MG ORAL TABS 776216 ALPRAZOLAM Inactive ZOLPIDEM TARTRATE 10 MG ORAL TABS 1 tab PO at hs PRN insomnia 20 03/09/08 ZOLPIDEM TARTRATE 10 MG ORAL TABS 121599 ZOLPIDEM TARTR ATE Inactive VENLAFAXINE HCL 37.5 MG ORAL TABS Take 1 tab po daily x 7 days then increase to twice daily VENLAFAXINE HCL 37.5 MG ORAL TABS 791076 VENLAFAXINE HCL Inactive PREDNISONE 20 MG TAB 2 tabs daily for 3 days, 1 t ab daily for 3 days, 1/2 tab daily for 2 days PREDNISONE 20 MG TAB 481964 PREDNISON E Inactive PREDNISONE 20 MG TAB 3 tabs daily for 3 days, 2 t abs daily for 3 days, 1 tab daily for 3 days, 1/2 tab daily for 3 days PREDNISONE 20 MG TAB 468523 PREDNISONE Inactive Vital Signs Date Name Value [...] Measured Encounters Code Encounter Date Provider Facility CPT-99148 Level 4 Est. Patient 09:30:39 CDT Ayan goldsmith DO [facility] CPT-83757 Level 3 Est. Patient 17:31:00 ENHANCED ENVIRONMENTAL OPERATOR Cj Rodriguez [facility] CPT-03248 Level 3 Est. Patient 19:07:23 CDT Cj Rodriguez [facility] CPT-29347 Level 3 Est. Patient 16:45:43 ENHANCED ENVIRONMENTAL OPERATOR Marielena Barrett APRN [facility] CPT-55005 Level 3 Est. Patient 14:52:49 ENHANCED ENVIRONMENTAL OPERATOR Eric muhammad MD [facility] CPT-51487 Level 3 Est. Patient 15:41:51 CDT Eric muhammad MD [facility]
--- OUTSIDE RECORDS SUMMARY | 2020-04-05 22:11 | XMS REPORT | Clinical Summary ---
Author Author Admin, Esequiel Vo Organization [facility] [place] Address Unknown Phone Unavailable Allergies, Adverse Reactions, [...] status migrainosus Insomnia 780.52 Active Marielena Estes DEPUTY [place] [employer] Insomnia, unspecified Depression 311 Active Marielena Estes [...] needed for wheeze or cough ALBUTEROL SULFATE 80430041696 Active B lebron Devi DO Active METOPROLOL SUCCINATE ER 25 MG ORAL [id number] 1 tablet daily for elevated blood pressure and heart rate METOPROLOL SUCCINATE 21631920158 A ctive Ayan Devi DO Active AZITHROMYCIN 250 MG TABS 2 po qd x 1 day, then 1 po qd x 4 days AZITHROMYCIN 99004109863 Active Ayan Devi DO Active TRAMADOL HCL 50 MG ORAL TABS Take 1/2 tab po TID with extra strength tylenol TRAMADOL HCL 02403298758 No Longer Active Ayan Devi DO Active FENTANYL 12 MCG/HR TRANS PT72 Apply two patches to boris an dry skin and change every 3 days. FENTANYL 02113590191 No Longer Active Monica Devi DO Active VENLAFAXINE HCL ER 75 MG ORAL [id number] 1 capsule daily for anxiety/depression VENLAFAXINE HCL 75491663136 Active Ayna Devi DO Active VENLAFAXINE HCL 37.5 MG ORAL TABS Take 1 tab po daily x 7 days then increase to twice daily VENLAFAXINE HCL 11515705710 No Longer Active Ayan Devi DO Active ZOLPIDEM TARTRATE 10 MG ORAL TABS 1 tab PO at hs PRN insomnia 20 03/09/08 ZOLPIDEM TARTRATE 08629037307 No Longer Active Ayan Devi DO Active ALPRAZOLAM 0.5 MG ORAL TABS 1 PO q 8 hrs PRN AL PRAZOLAM 69010005875 No Longer Active Ayan Devi DO Active ESCITALOPRAM OXALATE 10 MG ORAL TABS 1 tab PO daily ESCITALOPRAM OXALATE 19845544706 No Longer Active Cj Valencia CITALOPRAM HYDROBROMIDE 20 MG ORAL TABS 1 tablet PO da asha. Do not miss or skip doses. Contact your provider if you intend to discontinue this medication. CITALOPRAM HYDROBROMIDE 60260312667 No Longer Active Kiley Naff ACQUISITION MARKETING COORDINATOR Active ALPRAZOLAM 0.5 MG ORAL TABS 1 tablet PO q 8 hrs PRN 03/09/08 ALPRAZOLAM 90122908217 No Longer Active Kiley Vang ACQUISITION MARKETING COORDINATOR Active TYLENOL PM EXTRA STRENGTH 1000-50 MG/30ML ORAL LIQD 2 tabs p o at bedtime DIPHENHYDRAMINE-APAP (SLEEP) 27184255571 No Longer Ac tive Kiley Vang ACQUISITION MARKETING COORDINATOR Active TOPAMAX 25 MG TABS 1 qHS x 1 week, then 1 BID x 1 week, then 1 qAM and 2 qHS x 1 week, then 2 BID (migraine prevention) TOPIRAMAT E 89139431799 No Longer Active Cj SARAH Active AMITRIPTYLINE HCL 25 MG TABS 1 tablet at HS AMITRIPTYLINE HCL 93366593903 No Longer Active Cj SARAH Activ e MOBIC 7.5 MG TABS 1 tablet by mouth twice daily MELOXICAM 05273203455 No Longer Active Marielena Estes APRN Active PREDNISONE 20 MG TAB 3 tabs daily for 3 days, 2 t abs daily for 3 days, 1 tab daily for 3 days, 1/2 tab daily for 3 days PREDN ISONE 72062742523 No Longer Active Eric Hester MD Active PREDNISONE 20 MG TAB 2 tabs daily for 3 days, 1 t ab daily for 3 days, 1/2 tab daily for 2 days PREDNISONE 26353048185 No Longer Active Eric Hester MD Active MOBIC 7.5 MG TABS 1 tablet by mouth twice daily 10/30 MOBIC 7.5 MG TABS 679653 MELOXICAM Inactive AMITRIPTYLINE HCL 25 MG TABS 1 tablet at HS AMITRIPTYLINE HCL 25 MG TABS 545744 AMITRIPTYLINE HCL Inactive TOPAMAX 25 MG TABS 1 qHS x 1 week, then 1 BID x 1 week, then 1 qAM and 2 qHS x 1 week, then 2 BID (migraine prevention) TOPAMAX 2 5 MG TABS 077226 TOPIRAMATE Inactive TYLENOL PM EXTRA STRENGTH 1000-50 MG/30ML ORAL LIQD 2 tabs p o at bedtime TYLENOL PM EXTRA STRENGTH 1000-50 MG/30ML ORAL L IQD DIPHENHYDRAMINE-APAP (SLEEP) Inactive ALPRAZOLAM 0.5 MG ORAL TABS 1 tablet PO q 8 hrs PRN 20 03/09/08 ALPRAZOLAM 0.5 MG ORAL TABS 795889 ALPRAZOLAM Inactive CITALOPRAM HYDROBROMIDE 20 MG ORAL TABS 1 tablet PO da asha. Do not miss or skip doses. Contact your provider if you intend to discontinue this medication. CITALOPRAM HYDROBROMIDE 20 MG ORAL TABS 177940 CITALOPRAM HYDROBROMIDE Inactive ALPRAZOLAM 0.5 MG ORAL TABS 1 PO q 8 hrs PRN 1 ALPRAZOLAM 0.5 MG ORAL TABS 232498 ALPRAZOLAM Inactive ZOLPIDEM TARTRATE 10 MG ORAL TABS 1 tab PO at hs PRN insomnia 20 03/09/08 ZOLPIDEM TARTRATE 10 MG ORAL TABS 112648 ZOLPIDEM TARTR ATE Inactive VENLAFAXINE HCL 37.5 MG ORAL TABS Take 1 tab po daily x 7 days then increase to twice daily VENLAFAXINE HCL 37.5 MG ORAL TABS 757118 VENLAFAXINE HCL Inactive FENTANYL 12 MCG/HR TRANS PT72 Apply two patches to boris an dry skin and change every 3 days. FENTANYL 12 MCG/HR TRANS PT72 269685 FENTANYL Inactive TRAMADOL HCL 50 MG ORAL TABS Take 1/2 tab po TID with extra strength tylenol TRAMADOL HCL 50 MG ORAL TABS 692284 TRAMADOL HCL Inactive PREDNISONE 20 MG TAB 2 tabs daily for 3 days, 1 t ab daily for 3 days, 1/2 tab daily for 2 days PREDNISONE 20 MG TAB 862470 PREDNISON E Inactive PREDNISONE 20 MG TAB 3 tabs daily for 3 days, 2 t abs daily for 3 days, 1 tab daily for 3 days, 1/2 tab daily for 3 days PREDNISONE 20 MG TAB 417775 PREDNISONE Inactive Vital Signs Date Name Value [...] - 3141-9 160 [lb_av] Weigh t Measured Diagnostic Results Date Name Value Unit Range Description Lab Report: GLORIA INFLUENZA A/B - [place]ox[place] logy rapid flu test Negative Negative;Positive Encounters Code Encounter Date Provider Facility CPT-17402 Level 3 Est. Patient 10:38:22 CDT Ayan goldsmith [facility] CPT-80282 Level 4 Est. Patient 09:30:39 CDT Ayan goldsmith [facility] CPT-45363 Level 3 Est. Patient 17:31:00 AUTO BODY REPAIR ESTIMATOR Cj Rodriguez [facility] CPT-25020 Level 3 Est. Patient 19:07:23 CDT Cj Rodriguez [facility] CPT-78855 Level 3 Est. Patient 16:45:43 AUTO BODY REPAIR ESTIMATOR Marielena Barrett APRN [facility] CPT-73036 Level 3 Est. Patient 14:52:49 AUTO BODY REPAIR ESTIMATOR Eric muhammad MD [facility] CPT-24857 Level 3 Est. Patient 15:41:51 CDT Eric muhammad MD [facility] Procedures Code Procedure Name Date Entry Date Standard Desc ription CPT-17656 Chest 2V Frontal and Lat 10:48:26 CDT 01/08
--- OUTSIDE RECORDS SUMMARY | 2020-04-05 22:11 | XMS REPORT | Clinical Summary ---
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 Insomnia, unspecified Depression 311 Active Marielena Estes [...] needed for wheeze or cough ALBUTEROL SULFATE 71213849398 Active B lebron Devi DO Active METOPROLOL SUCCINATE ER 25 MG ORAL [id number] 1 tablet daily for elevated blood pressure and heart rate METOPROLOL SUCCINATE 38897817759 A ctive Ayan Devi DO Active AZITHROMYCIN 250 MG TABS 2 po qd x 1 day, then 1 po qd x 4 days AZITHROMYCIN 96918906031 No Longer Active Ayan Devi DO A ctive TRAMADOL HCL 50 MG ORAL TABS Take 1/2 tab po TID with extra strength tylenol TRAMADOL HCL 59234107935 No Longer Active Ayan Devi DO Active FENTANYL 12 MCG/HR TRANS PT72 Apply two patches to boris an dry skin and change every 3 days. FENTANYL 15701761993 No Longer Active Monica Devi DO Active VENLAFAXINE HCL ER 75 MG ORAL [id number] 1 capsule daily for anxiety/depression VENLAFAXINE HCL 63105925549 Active Ayan Devi DO Active VENLAFAXINE HCL 37.5 MG ORAL TABS Take 1 tab po daily x 7 days then increase to twice daily VENLAFAXINE HCL 47846562642 No Longer Active Ayan Devi DO Active ZOLPIDEM TARTRATE 10 MG ORAL TABS 1 tab PO at hs PRN insomnia 20 03/09/08 ZOLPIDEM TARTRATE 82086459048 No Longer Active Ayan Devi DO Active ALPRAZOLAM 0.5 MG ORAL TABS 1 PO q 8 hrs PRN AL PRAZOLAM 80646607319 No Longer Active Ayan Devi DO Active ESCITALOPRAM OXALATE 10 MG ORAL TABS 1 tab PO daily ESCITALOPRAM OXALATE 08723658229 No Longer Active Cj Valencia CITALOPRAM HYDROBROMIDE 20 MG ORAL TABS 1 tablet PO da asha. Do not miss or skip doses. Contact your provider if you intend to discontinue this medication. CITALOPRAM HYDROBROMIDE 17415438637 No Longer Active Kiley Naff COAL LOADER Active ALPRAZOLAM 0.5 MG ORAL TABS 1 tablet PO q 8 hrs PRN 03/09/08 ALPRAZOLAM 87691809577 No Longer Active Kiley Vang COAL LOADER Active TYLENOL PM EXTRA STRENGTH 1000-50 MG/30ML ORAL LIQD 2 tabs p o at bedtime DIPHENHYDRAMINE-APAP (SLEEP) 35278761780 No Longer Ac tive Kiley Vang COAL LOADER Active TOPAMAX 25 MG TABS 1 qHS x 1 week, then 1 BID x 1 week, then 1 qAM and 2 qHS x 1 week, then 2 BID (migraine prevention) TOPIRAMAT E 27479133153 No Longer Active Cj SARAH Active AMITRIPTYLINE HCL 25 MG TABS 1 tablet at HS AMITRIPTYLINE HCL 85429858233 No Longer Active Cj SARAH Activ e MOBIC 7.5 MG TABS 1 tablet by mouth twice daily MELOXICAM 19957906537 No Longer Active Marielena Estes APRN Active PREDNISONE 20 MG TAB 3 tabs daily for 3 days, 2 t abs daily for 3 days, 1 tab daily for 3 days, 1/2 tab daily for 3 days PREDN ISONE 49865050596 No Longer Active Eric Hester MD Active PREDNISONE 20 MG TAB 2 tabs daily for 3 days, 1 t ab daily for 3 days, 1/2 tab daily for 2 days PREDNISONE 50172528645 No Longer Active Eric Hester MD Active MOBIC 7.5 MG TABS 1 tablet by mouth twice daily 10/30 MOBIC 7.5 MG TABS 543135 MELOXICAM Inactive AMITRIPTYLINE HCL 25 MG TABS 1 tablet at HS AMITRIPTYLINE HCL 25 MG TABS 667052 AMITRIPTYLINE HCL Inactive TOPAMAX 25 MG TABS 1 qHS x 1 week, then 1 BID x 1 week, then 1 qAM and 2 qHS x 1 week, then 2 BID (migraine prevention) TOPAMAX 2 5 MG TABS 163621 TOPIRAMATE Inactive TYLENOL PM EXTRA STRENGTH 1000-50 MG/30ML ORAL LIQD 2 tabs p o at bedtime TYLENOL PM EXTRA STRENGTH 1000-50 MG/30ML ORAL L IQD DIPHENHYDRAMINE-APAP (SLEEP) Inactive ALPRAZOLAM 0.5 MG ORAL TABS 1 tablet PO q 8 hrs PRN 20 03/09/08 ALPRAZOLAM 0.5 MG ORAL TABS 524724 ALPRAZOLAM Inactive CITALOPRAM HYDROBROMIDE 20 MG ORAL TABS 1 tablet PO da asha. Do not miss or skip doses. Contact your provider if you intend to discontinue this medication. CITALOPRAM HYDROBROMIDE 20 MG ORAL TABS 986958 CITALOPRAM HYDROBROMIDE Inactive ALPRAZOLAM 0.5 MG ORAL TABS 1 PO q 8 hrs PRN 1 ALPRAZOLAM 0.5 MG ORAL TABS 280937 ALPRAZOLAM Inactive ZOLPIDEM TARTRATE 10 MG ORAL TABS 1 tab PO at hs PRN insomnia 20 03/09/08 ZOLPIDEM TARTRATE 10 MG ORAL TABS 588154 ZOLPIDEM TARTR ATE Inactive VENLAFAXINE HCL 37.5 MG ORAL TABS Take 1 tab po daily x 7 days then increase to twice daily VENLAFAXINE HCL 37.5 MG ORAL TABS 799292 VENLAFAXINE HCL Inactive FENTANYL 12 MCG/HR TRANS PT72 Apply two patches to boris an dry skin and change every 3 days. FENTANYL 12 MCG/HR TRANS PT72 793874 FENTANYL Inactive TRAMADOL HCL 50 MG ORAL TABS Take 1/2 tab po TID with extra strength tylenol TRAMADOL HCL 50 MG ORAL TABS 831625 TRAMADOL HCL Inactive PREDNISONE 20 MG TAB 2 tabs daily for 3 days, 1 t ab daily for 3 days, 1/2 tab daily for 2 days PREDNISONE 20 MG TAB 796324 PREDNISON E Inactive PREDNISONE 20 MG TAB 3 tabs daily for 3 days, 2 t abs daily for 3 days, 1 tab daily for 3 days, 1/2 tab daily for 3 days PREDNISONE 20 MG TAB 850527 PREDNISONE Inactive AZITHROMYCIN 250 MG TABS 2 po qd x 1 day, then 1 po qd x 4 days AZITHROMYCIN 250 MG TABS 6066897 AZITHROMYCIN Inactiv e Vital Signs Date Name [...] - 3141-9 161.1 [lb_av] Weigh t Measured Diagnostic Results Date Name Value Unit Range Description Lab Report: GLORIA INFLUENZA A/B - [place]ox[place] logy rapid flu test Negative Negative;Positive Encounters Code Encounter Date Provider Facility CPT-97499 Level 3 Est. Patient 10:38:22 CDT Ayan goldsmith [facility] CPT-77721 Level 4 Est. Patient 09:30:39 CDT Ayan goldsmith [facility] CPT-88876 Level 3 Est. Patient 17:31:00 MACHINING SUPERVISOR Cj Rodriguez [facility] CPT-32762 Level 3 Est. Patient 19:07:23 CDT Cj Rodriguez [facility] CPT-80052 Level 3 Est. Patient 16:45:43 MACHINING SUPERVISOR Marielena Barrett APRN [facility] CPT-06190 Level 3 Est. Patient 14:52:49 MACHINING SUPERVISOR Eric muhammad MD [facility] CPT-58534 Level 3 Est. Patient 15:41:51 CDT Eric muhammad MD [facility] Procedures Code Procedure Name Date Entry Date Standard Desc ription CPT-69128 Chest 2V Frontal and Lat 10:48:26 CDT 01/08
--- OUTSIDE RECORDS SUMMARY | 2020-04-05 22:11 | XMS REPORT | Clinical Summary ---
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 Status Provider Patient Instruction ZOLPIDEM TARTRATE 10 MG ORAL TABS 1 tab PO at hs PRN insomnia 08/27 ZOLPIDEM TARTRATE 43584694213 Active Cj SARAH Acti ve ALPRAZOLAM 0.5 MG ORAL TABS 1 PO q 8 hrs PRN AL PRAZOLAM 57922189307 Active Cj SARAH Active ESCITALOPRAM OXALATE 10 MG ORAL TABS 1 tab PO daily ESCITALOPRAM OXALATE 93527653959 Active Cj SARAH Active CITALOPRAM HYDROBROMIDE 20 MG ORAL TABS 1 tablet PO da asha. Do not miss or skip doses. Contact your provider if you intend to discontinue this medication. CITALOPRAM HYDROBROMIDE 79651685067 No Longer Active Kiley Vang TABLE ATTENDANT Active ALPRAZOLAM 0.5 MG ORAL TABS 1 tablet PO q 8 hrs PRN 20 03/09/08 ALPRAZOLAM 83647643779 No Longer Active Kiley Vang TABLE ATTENDANT Active TYLENOL PM EXTRA STRENGTH 1000-50 MG/30ML ORAL LIQD 2 tabs p o at bedtime DIPHENHYDRAMINE-APAP (SLEEP) 46522365071 No Longer Ac tive Kiley Vang TABLE ATTENDANT Active TOPAMAX 25 MG TABS 1 qHS x 1 week, then 1 BID x 1 week, then 1 qAM and 2 qHS x 1 week, then 2 BID (migraine prevention) TOPIRAMAT E 09958544220 No Longer Active Cj SARAH Active AMITRIPTYLINE HCL 25 MG TABS 1 tablet at HS AMITRIPTYLINE HCL 95869162279 No Longer Active Cj SARAH Activ e MOBIC 7.5 MG TABS 1 tablet by mouth twice daily MELOXICAM 51316799688 No Longer Active Marielena Estes APRN Active PREDNISONE 20 MG TAB 3 tabs daily for 3 days, 2 t abs daily for 3 days, 1 tab daily for 3 days, 1/2 tab daily for 3 days PREDN ISONE 32016967016 No Longer Active Eric Hester MD Active PREDNISONE 20 MG TAB 2 tabs daily for 3 days, 1 t ab daily for 3 days, 1/2 tab daily for 2 days PREDNISONE 42843323444 No Longer Active Eric Hester MD Active MOBIC 7.5 MG TABS 1 tablet by mouth twice daily 10/30 MOBIC 7.5 MG TABS 632443 MELOXICAM Inactive AMITRIPTYLINE HCL 25 MG TABS 1 tablet at HS AMITRIPTYLINE HCL 25 MG TABS 762808 AMITRIPTYLINE HCL Inactive TOPAMAX 25 MG TABS 1 qHS x 1 week, then 1 BID x 1 week, then 1 qAM and 2 qHS x 1 week, then 2 BID (migraine prevention) TOPAMAX 2 5 MG TABS 781011 TOPIRAMATE Inactive TYLENOL PM EXTRA STRENGTH 1000-50 MG/30ML ORAL LIQD 2 tabs p o at bedtime TYLENOL PM EXTRA STRENGTH 1000-50 MG/30ML ORAL L IQD DIPHENHYDRAMINE-APAP (SLEEP) Inactive ALPRAZOLAM 0.5 MG ORAL TABS 1 tablet PO q 8 hrs PRN 03/09/08 ALPRAZOLAM 0.5 MG ORAL TABS 966957 ALPRAZOLAM Inactive CITALOPRAM HYDROBROMIDE 20 MG ORAL TABS 1 tablet PO da asha. Do not miss or skip doses. Contact your provider if you intend to discontinue this medication. CITALOPRAM HYDROBROMIDE 20 MG ORAL TABS 394152 CITALOPRAM HYDROBROMIDE Inactive PREDNISONE 20 MG TAB 2 tabs daily for 3 days, 1 t ab daily for 3 days, 1/2 tab daily for 2 days PREDNISONE 20 MG TAB 286840 PREDNISON E Inactive PREDNISONE 20 MG TAB 3 tabs daily for 3 days, 2 t abs daily for 3 days, 1 tab daily for 3 days, 1/2 tab daily for 3 days PREDNISONE 20 MG TAB 499240 PREDNISONE Inactive Vital Signs Date Name Value [...] Measured Encounters Code Encounter Date Provider Facility CPT-20412 Level 3 Est. Patient 17:31:00 DOCUMENT CONTROL COORDINATOR Cj Rodriguez [facility] CPT-02958 Level 3 Est. Patient 19:07:23 CDT Cj Rodriguez [facility] CPT-43657 Level 3 Est. Patient 16:45:43 DOCUMENT CONTROL COORDINATOR Marielena Barrett APRN [facility] CPT-39718 Level 3 Est. Patient 14:52:49 DOCUMENT CONTROL COORDINATOR Eric muhammad MD [facility] CPT-87745 Level 3 Est. Patient 15:41:51 CDT Eric muhammad MD [facility]
--- OUTSIDE RECORDS SUMMARY | 2020-04-05 22:11 | XMS REPORT | Clinical Summary ---
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 Insomnia, unspecified Depression 311 Active Marielena [...] needed for wheeze or cough ALBUTEROL SULFATE 08733807193 Active B lebron Devi DO Active METOPROLOL SUCCINATE ER 25 MG ORAL [id number] 1 tablet daily for elevated blood pressure and heart rate METOPROLOL SUCCINATE 12983997585 A ctive Ayan Devi DO Active AZITHROMYCIN 250 MG TABS 2 po qd x 1 day, then 1 po qd x 4 days AZITHROMYCIN 86636889190 Active Ayan Devi DO Active TRAMADOL HCL 50 MG ORAL TABS Take 1/2 tab po TID with extra strength tylenol TRAMADOL HCL 37488013783 No Longer Active Ayan Devi DO Active FENTANYL 12 MCG/HR TRANS PT72 Apply two patches to boris an dry skin and change every 3 days. FENTANYL 12902821404 No Longer Active Monica Devi DO Active VENLAFAXINE HCL ER 75 MG ORAL [id number] 1 capsule daily for anxiety/depression VENLAFAXINE HCL 18400383573 Active Ayan Devi DO Active VENLAFAXINE HCL 37.5 MG ORAL TABS Take 1 tab po daily x 7 days then increase to twice daily VENLAFAXINE HCL 32250852628 No Longer Active Ayan Devi DO Active ZOLPIDEM TARTRATE 10 MG ORAL TABS 1 tab PO at hs PRN insomnia 20 03/09/08 ZOLPIDEM TARTRATE 20156294610 No Longer Active Ayan Devi DO Active ALPRAZOLAM 0.5 MG ORAL TABS 1 PO q 8 hrs PRN AL PRAZOLAM 36345419161 No Longer Active Ayan Devi DO Active ESCITALOPRAM OXALATE 10 MG ORAL TABS 1 tab PO daily ESCITALOPRAM OXALATE 93367425071 No Longer Active Cj Valencia CITALOPRAM HYDROBROMIDE 20 MG ORAL TABS 1 tablet PO da asha. Do not miss or skip doses. Contact your provider if you intend to discontinue this medication. CITALOPRAM HYDROBROMIDE 77437448557 No Longer Active Kiley Naff LEAD APPLICATION ARCHITECT Active ALPRAZOLAM 0.5 MG ORAL TABS 1 tablet PO q 8 hrs PRN 03/09/08 ALPRAZOLAM 77083817550 No Longer Active Kiley Vang LEAD APPLICATION ARCHITECT Active TYLENOL PM EXTRA STRENGTH 1000-50 MG/30ML ORAL LIQD 2 tabs p o at bedtime DIPHENHYDRAMINE-APAP (SLEEP) 14197095799 No Longer Ac tive Kiley Vang LEAD APPLICATION ARCHITECT Active TOPAMAX 25 MG TABS 1 qHS x 1 week, then 1 BID x 1 week, then 1 qAM and 2 qHS x 1 week, then 2 BID (migraine prevention) TOPIRAMAT E 79564239988 No Longer Active Cj SARAH Active AMITRIPTYLINE HCL 25 MG TABS 1 tablet at HS AMITRIPTYLINE HCL 07870969717 No Longer Active Cj SARAH Activ e MOBIC 7.5 MG TABS 1 tablet by mouth twice daily MELOXICAM 04774570803 No Longer Active Marielena Estes APRN Active PREDNISONE 20 MG TAB 3 tabs daily for 3 days, 2 t abs daily for 3 days, 1 tab daily for 3 days, 1/2 tab daily for 3 days PREDN ISONE 00442151714 No Longer Active Eric Hester MD Active PREDNISONE 20 MG TAB 2 tabs daily for 3 days, 1 t ab daily for 3 days, 1/2 tab daily for 2 days PREDNISONE 13482577963 No Longer Active Eric Hester MD Active MOBIC 7.5 MG TABS 1 tablet by mouth twice daily 10/30 MOBIC 7.5 MG TABS 262255 MELOXICAM Inactive AMITRIPTYLINE HCL 25 MG TABS 1 tablet at HS AMITRIPTYLINE HCL 25 MG TABS 627510 AMITRIPTYLINE HCL Inactive TOPAMAX 25 MG TABS 1 qHS x 1 week, then 1 BID x 1 week, then 1 qAM and 2 qHS x 1 week, then 2 BID (migraine prevention) TOPAMAX 2 5 MG TABS 879949 TOPIRAMATE Inactive TYLENOL PM EXTRA STRENGTH 1000-50 MG/30ML ORAL LIQD 2 tabs p o at bedtime TYLENOL PM EXTRA STRENGTH 1000-50 MG/30ML ORAL L IQD DIPHENHYDRAMINE-APAP (SLEEP) Inactive ALPRAZOLAM 0.5 MG ORAL TABS 1 tablet PO q 8 hrs PRN 20 03/09/08 ALPRAZOLAM 0.5 MG ORAL TABS 642669 ALPRAZOLAM Inactive CITALOPRAM HYDROBROMIDE 20 MG ORAL TABS 1 tablet PO da asha. Do not miss or skip doses. Contact your provider if you intend to discontinue this medication. CITALOPRAM HYDROBROMIDE 20 MG ORAL TABS 179285 CITALOPRAM HYDROBROMIDE Inactive ALPRAZOLAM 0.5 MG ORAL TABS 1 PO q 8 hrs PRN 1 ALPRAZOLAM 0.5 MG ORAL TABS 795609 ALPRAZOLAM Inactive ZOLPIDEM TARTRATE 10 MG ORAL TABS 1 tab PO at hs PRN insomnia 20 03/09/08 ZOLPIDEM TARTRATE 10 MG ORAL TABS 415730 ZOLPIDEM TARTR ATE Inactive VENLAFAXINE HCL 37.5 MG ORAL TABS Take 1 tab po daily x 7 days then increase to twice daily VENLAFAXINE HCL 37.5 MG ORAL TABS 539697 VENLAFAXINE HCL Inactive FENTANYL 12 MCG/HR TRANS PT72 Apply two patches to boris an dry skin and change every 3 days. FENTANYL 12 MCG/HR TRANS PT72 955806 FENTANYL Inactive TRAMADOL HCL 50 MG ORAL TABS Take 1/2 tab po TID with extra strength tylenol TRAMADOL HCL 50 MG ORAL TABS 062811 TRAMADOL HCL Inactive PREDNISONE 20 MG TAB 2 tabs daily for 3 days, 1 t ab daily for 3 days, 1/2 tab daily for 2 days PREDNISONE 20 MG TAB 186420 PREDNISON E Inactive PREDNISONE 20 MG TAB 3 tabs daily for 3 days, 2 t abs daily for 3 days, 1 tab daily for 3 days, 1/2 tab daily for 3 days PREDNISONE 20 MG TAB 566024 PREDNISONE Inactive Vital Signs Date Name Value [...] Negative;Positive Encounters Code Encounter Date Provider Facility CPT-71655 Level 3 Est. Patient 10:38:22 CDT Ayan goldsmith [facility] CPT-42445 Level 4 Est. Patient 09:30:39 CDT Ayan goldsmith [facility] CPT-61434 Level 3 Est. Patient 17:31:00 WHEEL GRINDER Cj Rodriguez [facility] CPT-09174 Level 3 Est. Patient 19:07:23 CDT Cj Rodriguez [facility] CPT-43970 Level 3 Est. Patient 16:45:43 WHEEL GRINDER Marielena Barrett APRN [facility] CPT-28696 Level 3 Est. Patient 14:52:49 WHEEL GRINDER Eric muhammad MD [facility] CPT-62571 Level 3 Est. Patient 15:41:51 CDT Eric muhammad MD [facility] Procedures Code Procedure Name Date Entry Date Standard Desc ription CPT-86232 Chest 2V Frontal and Lat 10:48:26 CDT 01/08
--- OUTSIDE RECORDS SUMMARY | 2020-04-05 22:11 | XMS REPORT | Clinical Summary ---
Author Author Admin, Esequiel Vo Organization [facility] [employer] Address Unknown Phone Unavailable Allergies, Adverse Reactions, [...] status migrainosus Insomnia 780.52 Active Marielena Estes APRN Insomnia, unspecified Depression 311 Active Marielena Estes [...] Instruction METOPROLOL SUCCINATE ER 25 MG ORAL [id number] 1/2 table t daily for elevated blood pressure and heart rate METOPROLOL SUCCINATE 59290194929 A ctive Ayan Devi DO Active VENLAFAXINE HCL ER 75 MG ORAL [id number] 1 capsule daily for anxiety/depression VENLAFAXINE HCL 13249853497 Active Ayan Devi DO Active VENLAFAXINE HCL 37.5 MG ORAL TABS Take 1 tab po daily x 7 days then increase to twice daily VENLAFAXINE HCL 27135326739 No Longer Active Ayan Devi DO Active ZOLPIDEM TARTRATE 10 MG ORAL TABS 1 tab PO at hs PRN insomnia 20 03/09/08 ZOLPIDEM TARTRATE 25179974590 No Longer Active Ayan Devi DO Active ALPRAZOLAM 0.5 MG ORAL TABS 1 PO q 8 hrs PRN AL PRAZOLAM 11031594202 No Longer Active Ayan Devi DO Active ESCITALOPRAM OXALATE 10 MG ORAL TABS 1 tab PO daily ESCITALOPRAM OXALATE 64276303664 No Longer Active Cj SARAH Activ e CITALOPRAM HYDROBROMIDE 20 MG ORAL TABS 1 tablet PO da asha. Do not miss or skip doses. Contact your provider if you intend to discontinue this medication. CITALOPRAM HYDROBROMIDE 41097377519 No Longer Active Kiley Naff FIELD INSTALLATION TECHNICIAN Active ALPRAZOLAM 0.5 MG ORAL TABS 1 tablet PO q 8 hrs PRN 20 03/09/08 ALPRAZOLAM 95402263632 No Longer Active Kiley Naff FIELD INSTALLATION TECHNICIAN Active TYLENOL PM EXTRA STRENGTH 1000-50 MG/30ML ORAL LIQD 2 tabs p o at bedtime DIPHENHYDRAMINE-APAP (SLEEP) 66654546772 No Longer Ac tive Kiley Naff FIELD INSTALLATION TECHNICIAN Active TOPAMAX 25 MG TABS 1 qHS x 1 week, then 1 BID x 1 week, then 1 qAM and 2 qHS x 1 week, then 2 BID (migraine prevention) TOPIRAMAT E 19266651458 No Longer Active Cj SARAH Active AMITRIPTYLINE HCL 25 MG TABS 1 tablet at HS AMITRIPTYLINE HCL 75127392230 No Longer Active Cj SARAH Activ e MOBIC 7.5 MG TABS 1 tablet by mouth twice daily MELOXICAM 80744509525 No Longer Active Marielena Estes APRN Active PREDNISONE 20 MG TAB 3 tabs daily for 3 days, 2 t abs daily for 3 days, 1 tab daily for 3 days, 1/2 tab daily for 3 days PREDN ISONE 79482928068 No Longer Active Eric Hester MD Active PREDNISONE 20 MG TAB 2 tabs daily for 3 days, 1 t ab daily for 3 days, 1/2 tab daily for 2 days PREDNISONE 40714117349 No Longer Active Eric Hester MD Active MOBIC 7.5 MG TABS 1 tablet by mouth twice daily 10/30 MOBIC 7.5 MG TABS 679438 MELOXICAM Inactive AMITRIPTYLINE HCL 25 MG TABS 1 tablet at HS AMITRIPTYLINE HCL 25 MG TABS 687110 AMITRIPTYLINE HCL Inactive TOPAMAX 25 MG TABS 1 qHS x 1 week, then 1 BID x 1 week, then 1 qAM and 2 qHS x 1 week, then 2 BID (migraine prevention) TOPAMAX 2 5 MG TABS 504795 TOPIRAMATE Inactive TYLENOL PM EXTRA STRENGTH 1000-50 MG/30ML ORAL LIQD 2 tabs p o at bedtime TYLENOL PM EXTRA STRENGTH 1000-50 MG/30ML ORAL L IQD DIPHENHYDRAMINE-APAP (SLEEP) Inactive ALPRAZOLAM 0.5 MG ORAL TABS 1 tablet PO q 8 hrs PRN 03/09/08 ALPRAZOLAM 0.5 MG ORAL TABS 847826 ALPRAZOLAM Inactive CITALOPRAM HYDROBROMIDE 20 MG ORAL TABS 1 tablet PO da asha. Do not miss or skip doses. Contact your provider if you intend to discontinue this medication. CITALOPRAM HYDROBROMIDE 20 MG ORAL TABS 647988 CITALOPRAM HYDROBROMIDE Inactive ALPRAZOLAM 0.5 MG ORAL TABS 1 PO q 8 hrs PRN 1 ALPRAZOLAM 0.5 MG ORAL TABS 065846 ALPRAZOLAM Inactive ZOLPIDEM TARTRATE 10 MG ORAL TABS 1 tab PO at hs PRN insomnia 20 03/09/08 ZOLPIDEM TARTRATE 10 MG ORAL TABS 520497 ZOLPIDEM TARTR ATE Inactive VENLAFAXINE HCL 37.5 MG ORAL TABS Take 1 tab po daily x 7 days then increase to twice daily VENLAFAXINE HCL 37.5 MG ORAL TABS 465252 VENLAFAXINE HCL Inactive PREDNISONE 20 MG TAB 2 tabs daily for 3 days, 1 t ab daily for 3 days, 1/2 tab daily for 2 days PREDNISONE 20 MG TAB 208439 PREDNISON E Inactive PREDNISONE 20 MG TAB 3 tabs daily for 3 days, 2 t abs daily for 3 days, 1 tab daily for 3 days, 1/2 tab daily for 3 days PREDNISONE 20 MG TAB 182510 PREDNISONE Inactive Vital Signs Date Name Value [...] Measured Encounters Code Encounter Date Provider Facility CPT-17365 Level 4 Est. Patient 09:30:39 CDT Ayan goldsmith DO [facility] CPT-80836 Level 3 Est. Patient 17:31:00 BARYTES GRINDER Cj Rodriguez [facility] CPT-21753 Level 3 Est. Patient 19:07:23 CDT Cj Rodriguez [facility] CPT-01497 Level 3 Est. Patient 16:45:43 BARYTES GRINDER Marielena Barrett APRN [facility] CPT-27634 Level 3 Est. Patient 14:52:49 BARYTES GRINDER Eric muhammad MD [facility] CPT-81778 Level 3 Est. Patient 15:41:51 CDT Eric muhammad MD [facility]
--- OUTSIDE RECORDS SUMMARY | 2020-04-05 22:11 | XMS REPORT | Clinical Summary ---
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 Estes TAXI DRIVER SUPERVISOR Insomnia, unspecified Depression 311 Active Marielena Estes [...] skin and change every 72 hours FENTANYL 21662508717 Active Ayan Devi DO Ac tive LISINOPRIL 20 MG TABS 1 tablet by mouth daily LISINOPRIL 58029536614 Active Ayan Devi DO Active PERCOCET 5-325 MG ORAL TABS 1 tab 4 times daily PRN Sparingly 03/09 OXYCODONE-ACETAMINOPHEN 72894590427 Active Fior Rice TAXI DRIVER SUPERVISOR Active METOPROLOL SUCCINATE ER 25 MG ORAL [id number] 1 tablet daily for elevated blood pressure and heart rate METOPROLOL SUCCINATE 117638545 10 No Longer Active Ayan Devi DO Active METOPROLOL SUCCINATE 50 MG TB24 1 tablet by mouth daily METOPROLOL SUCCINATE 24641061629 Active Ayan Devi DO Active PROAIR HFA 108 (90 BASE) MCG/ACT AERS 2 puffs four lindsey es a day as needed for wheeze or cough ALBUTEROL SULFATE 21436283877 No Long er Active Ayan Devi DO Active AZITHROMYCIN 250 MG TABS 2 po qd x 1 day, then 1 po qd x 4 days AZITHROMYCIN 60093398093 No Longer Active Ayan Devi DO A ctive TRAMADOL HCL 50 MG ORAL TABS Take 1/2 tab po TID with extra strength tylenol TRAMADOL HCL 94728696066 No Longer Active Ayan Devi DO Active FENTANYL 12 MCG/HR TRANS PT72 Apply two patches to boris an dry skin and change every 3 days. FENTANYL 60220445053 No Longer Active Moncia Devi DO Active VENLAFAXINE HCL ER 75 MG ORAL [id number] 1 capsule daily for anxiety/depression VENLAFAXINE HCL 89049109225 Active Ayan Devi DO Active VENLAFAXINE HCL 37.5 MG ORAL TABS Take 1 tab po daily x 7 days then increase to twice daily VENLAFAXINE HCL 01687797331 No Longer Active Ayan Devi DO Active ZOLPIDEM TARTRATE 10 MG ORAL TABS 1 tab PO at hs PRN insomnia 20 03/09/08 ZOLPIDEM TARTRATE 00693786002 No Longer Active Ayan Devi DO Active ALPRAZOLAM 0.5 MG ORAL TABS 1 PO q 8 hrs PRN AL PRAZOLAM 22919661720 No Longer Active Ayan Devi DO Active ESCITALOPRAM OXALATE 10 MG ORAL TABS 1 tab PO daily ESCITALOPRAM OXALATE 95782007651 No Longer Active Cj SARAH Activ e CITALOPRAM HYDROBROMIDE 20 MG ORAL TABS 1 tablet PO da asha. Do not miss or skip doses. Contact your provider if you intend to discontinue this medication. CITALOPRAM HYDROBROMIDE 97830177016 No Longer Active Kiley Naff RETAIL ADVERTISING SALES MANAGER Active ALPRAZOLAM 0.5 MG ORAL TABS 1 tablet PO q 8 hrs PRN 03/09/08 ALPRAZOLAM 53890155610 No Longer Active Kiley Naff RETAIL ADVERTISING SALES MANAGER Active TYLENOL PM EXTRA STRENGTH 1000-50 MG/30ML ORAL LIQD 2 tabs p o at bedtime DIPHENHYDRAMINE-APAP (SLEEP) 96326476758 No Longer Ac tive Kiley Naff RETAIL ADVERTISING SALES MANAGER Active TOPAMAX 25 MG TABS 1 qHS x 1 week, then 1 BID x 1 week, then 1 qAM and 2 qHS x 1 week, then 2 BID (migraine prevention) TOPIRAMAT E 91228312207 No Longer Active Cj SARAH Active AMITRIPTYLINE HCL 25 MG TABS 1 tablet at HS AMITRIPTYLINE HCL 46127972072 No Longer Active Cj Rodriguez PA Activ e MOBIC 7.5 MG TABS 1 tablet by mouth twice daily MELOXICAM 89226802748 No Longer Active Marielena Estes APRN Active PREDNISONE 20 MG TAB 3 tabs daily for 3 days, 2 t abs daily for 3 days, 1 tab daily for 3 days, 1/2 tab daily for 3 days PREDN CARLOTA 75581043480 No Longer Active Eric Hester MD Active PREDNISONE 20 MG TAB 2 tabs daily for 3 days, 1 t ab daily for 3 days, 1/2 tab daily for 2 days PREDNISONE 84971814192 No Longer Active Eric Hester MD Active MOBIC 7.5 MG TABS 1 tablet by mouth twice daily 10/30 MOBIC 7.5 MG TABS 455371 MELOXICAM Inactive AMITRIPTYLINE HCL 25 MG TABS 1 tablet at HS AMITRIPTYLINE HCL 25 MG TABS 666777 AMITRIPTYLINE HCL Inactive TOPAMAX 25 MG TABS 1 qHS x 1 week, then 1 BID x 1 week, then 1 qAM and 2 qHS x 1 week, then 2 BID (migraine prevention) TOPAMAX 2 5 MG TABS 352075 TOPIRAMATE Inactive TYLENOL PM EXTRA STRENGTH 1000-50 MG/30ML ORAL LIQD 2 tabs p o at bedtime TYLENOL PM EXTRA STRENGTH 1000-50 MG/30ML ORAL L IQD DIPHENHYDRAMINE-APAP (SLEEP) Inactive ALPRAZOLAM 0.5 MG ORAL TABS 1 tablet PO q 8 hrs PRN 20 03/09/08 ALPRAZOLAM 0.5 MG ORAL TABS 479976 ALPRAZOLAM Inactive CITALOPRAM HYDROBROMIDE 20 MG ORAL TABS 1 tablet PO da asha. Do not miss or skip doses. Contact your provider if you intend to discontinue this medication. CITALOPRAM HYDROBROMIDE 20 MG ORAL TABS 20030320 CITALOPRAM HYDROBROMIDE Inactive ALPRAZOLAM 0.5 MG ORAL TABS 1 PO q 8 hrs PRN 1 ALPRAZOLAM 0.5 MG ORAL TABS 286408 ALPRAZOLAM Inactive ZOLPIDEM TARTRATE 10 MG ORAL TABS 1 tab PO at hs PRN insomnia 20 03/09/08 ZOLPIDEM TARTRATE 10 MG ORAL TABS 134236 ZOLPIDEM TARTR ATE Inactive VENLAFAXINE HCL 37.5 MG ORAL TABS Take 1 tab po daily x 7 days then increase to twice daily VENLAFAXINE HCL 37.5 MG ORAL TABS 431222 VENLAFAXINE HCL Inactive FENTANYL 12 MCG/HR TRANS PT72 Apply two patches to boris an dry skin and change every 3 days. FENTANYL 12 MCG/HR TRANS PT72 949734 FENTANYL Inactive TRAMADOL HCL 50 MG ORAL TABS Take 1/2 tab po TID with extra strength tylenol TRAMADOL HCL 50 MG ORAL TABS 572956 TRAMADOL HCL Inactive PROAIR HFA 108 (90 BASE) MCG/ACT AERS 2 puffs four lindsey es a day as needed for wheeze or cough PROAIR HFA 108 (90 BASE) MCG/ACT AERS ALBUTEROL SULFATE Inactive METOPROLOL SUCCINATE ER 25 MG ORAL [id number] 1 tablet daily for elevated blood pressure and heart rate METOPROLOL SUCCI VANDANA ER 25 MG ORAL [id number] METOPROLOL SUCCINATE Inactive PREDNISONE 20 MG TAB 2 tabs daily for 3 days, 1 t ab daily for 3 days, 1/2 tab daily for 2 days PREDNISONE 20 MG TAB 810210 PREDNISON E Inactive PREDNISONE 20 MG TAB 3 tabs daily for 3 days, 2 t abs daily for 3 days, 1 tab daily for 3 days, 1/2 tab daily for 3 days PREDNISONE 20 MG TAB 349560 PREDNISONE Inactive AZITHROMYCIN 250 MG TABS 2 po qd x 1 day, then 1 po qd x 4 days AZITHROMYCIN 250 MG TABS 0779638 AZITHROMYCIN Inactiv e Vital Signs Date Name [...] Panel - Chemistry sodium, serum 141 mmol/L 704-497 3153/06/09 carbon dioxide, venous blood 30.5 mmol/L 21.0-32 [...] Negative;Positive Encounters Code Encounter Date Provider Facility CPT-49205 Level 3 Est. Patient 17:32:44 CDT Ayan goldsmith [facility] CPT-75045 Level 3 Est. Patient 10:14:46 CDT Ayan goldsmith [facility] CPT-77819 Level 3 Est. Patient 10:38:22 CDT Ayan goldsmith [facility] CPT-62512 Level 4 Est. Patient 09:30:39 CDT Ayan goldsmith [facility] CPT-98826 Level 3 Est. Patient 17:31:00 SOCIAL MEDIA EDITOR Cj Rodriguez [facility] CPT-96686 Level 3 Est. Patient 19:07:[address] [facility] CPT-61169 Level 3 Est. Patient 16:45:43 SOCIAL MEDIA EDITOR Marielena Barrett APRN [facility] CPT-59214 Level 3 Est. Patient 14:52:49 SOCIAL MEDIA EDITOR Eric muhammad MD [facility] CPT-56715 Level 3 Est. Patient 15:41:51 CDT Eric muhammad MD [facility] Procedures Code Procedure Name Date Entry Date Standard Desc ription CPT-73975 Chest 2V Frontal and Lat 10:48:26 CDT 01/08
--- OUTSIDE RECORDS SUMMARY | 2020-04-05 22:11 | XMS REPORT | Clinical Summary ---
Author Author Admin, Esequiel Vo Organization [facility] Address Unknown Phone Unavailable Allergies, Adverse Reactions, [...] status migrainosus Insomnia 780.52 Active Marielena Estes HOSPITAL NURSE LIAISON Insomnia, unspecified Depression 311 Active Marielena Estes [...] skin and change every 3 days. FENTANYL 14625510588 Active Raven Wen MA Active TRAMADOL HCL 50 MG ORAL TABS Take 1/2 tab po TID with extra strength tylenol TRAMADOL HCL 69198361644 Active Raven Wen MA Active METOPROLOL SUCCINATE ER 25 MG ORAL [id number] 1/2 table t daily for elevated blood pressure and heart rate METOPROLOL SUCCINATE 34669560948 A ctive Ayan Devi DO Active VENLAFAXINE HCL ER 75 MG ORAL [id number] 1 capsule daily for anxiety/depression VENLAFAXINE HCL 21867300994 Active Ayan Devi DO Active VENLAFAXINE HCL 37.5 MG ORAL TABS Take 1 tab po daily x 7 days then increase to twice daily VENLAFAXINE HCL 38882430550 No Longer Active Ayan Devi DO Active ZOLPIDEM TARTRATE 10 MG ORAL TABS 1 tab PO at hs PRN insomnia 20 03/09/08 ZOLPIDEM TARTRATE 83300495177 No Longer Active Ayan Devi DO Active ALPRAZOLAM 0.5 MG ORAL TABS 1 PO q 8 hrs PRN AL PRAZOLAM 53979149577 No Longer Active Ayan Devi DO Active ESCITALOPRAM OXALATE 10 MG ORAL TABS 1 tab PO daily ESCITALOPRAM OXALATE 60423873068 No Longer Active Cj Grijalva e CITALOPRAM HYDROBROMIDE 20 MG ORAL TABS 1 tablet PO da asha. Do not miss or skip doses. Contact your provider if you intend to discontinue this medication. CITALOPRAM HYDROBROMIDE 45933234983 No Longer Active Kiley Naff RECORD TABULATING CLERK Active ALPRAZOLAM 0.5 MG ORAL TABS 1 tablet PO q 8 hrs PRN 20 03/09/08 ALPRAZOLAM 68522911894 No Longer Active Kiley Naff RECORD TABULATING CLERK Active TYLENOL PM EXTRA STRENGTH 1000-50 MG/30ML ORAL LIQD 2 tabs p o at bedtime DIPHENHYDRAMINE-APAP (SLEEP) 42898432641 No Longer Ac tive Kiley Naff RECORD TABULATING CLERK Active TOPAMAX 25 MG TABS 1 qHS x 1 week, then 1 BID x 1 week, then 1 qAM and 2 qHS x 1 week, then 2 BID (migraine prevention) TOPIRAMAT E 47674145525 No Longer Active Cj SARAH Active AMITRIPTYLINE HCL 25 MG TABS 1 tablet at HS AMITRIPTYLINE HCL 41515668214 No Longer Active Cj SARAH Activ e MOBIC 7.5 MG TABS 1 tablet by mouth twice daily MELOXICAM 03811125536 No Longer Active Marielena Estes APRN Active PREDNISONE 20 MG TAB 3 tabs daily for 3 days, 2 t abs daily for 3 days, 1 tab daily for 3 days, 1/2 tab daily for 3 days PREDN ISONE 51909153093 No Longer Active Eric Hester MD Active PREDNISONE 20 MG TAB 2 tabs daily for 3 days, 1 t ab daily for 3 days, 1/2 tab daily for 2 days PREDNISONE 42749571268 No Longer Active Eric Hester MD Active MOBIC 7.5 MG TABS 1 tablet by mouth twice daily 10/30 MOBIC 7.5 MG TABS 301673 MELOXICAM Inactive AMITRIPTYLINE HCL 25 MG TABS 1 tablet at HS AMITRIPTYLINE HCL 25 MG TABS 783380 AMITRIPTYLINE HCL Inactive TOPAMAX 25 MG TABS 1 qHS x 1 week, then 1 BID x 1 week, then 1 qAM and 2 qHS x 1 week, then 2 BID (migraine prevention) TOPAMAX 2 5 MG TABS 792513 TOPIRAMATE Inactive TYLENOL PM EXTRA STRENGTH 1000-50 MG/30ML ORAL LIQD 2 tabs p o at bedtime TYLENOL PM EXTRA STRENGTH 1000-50 MG/30ML ORAL L IQD DIPHENHYDRAMINE-APAP (SLEEP) Inactive ALPRAZOLAM 0.5 MG ORAL TABS 1 tablet PO q 8 hrs PRN 03/09/08 ALPRAZOLAM 0.5 MG ORAL TABS 232820 ALPRAZOLAM Inactive CITALOPRAM HYDROBROMIDE 20 MG ORAL TABS 1 tablet PO da asha. Do not miss or skip doses. Contact your provider if you intend to discontinue this medication. CITALOPRAM HYDROBROMIDE 20 MG ORAL TABS 298000 CITALOPRAM HYDROBROMIDE Inactive ALPRAZOLAM 0.5 MG ORAL TABS 1 PO q 8 hrs PRN 1 ALPRAZOLAM 0.5 MG ORAL TABS 742988 ALPRAZOLAM Inactive ZOLPIDEM TARTRATE 10 MG ORAL TABS 1 tab PO at hs PRN insomnia 20 03/09/08 ZOLPIDEM TARTRATE 10 MG ORAL TABS 736119 ZOLPIDEM TARTR ATE Inactive VENLAFAXINE HCL 37.5 MG ORAL TABS Take 1 tab po daily x 7 days then increase to twice daily VENLAFAXINE HCL 37.5 MG ORAL TABS 428806 VENLAFAXINE HCL Inactive PREDNISONE 20 MG TAB 2 tabs daily for 3 days, 1 t ab daily for 3 days, 1/2 tab daily for 2 days PREDNISONE 20 MG TAB 498023 PREDNISON E Inactive PREDNISONE 20 MG TAB 3 tabs daily for 3 days, 2 t abs daily for 3 days, 1 tab daily for 3 days, 1/2 tab daily for 3 days PREDNISONE 20 MG TAB 316859 PREDNISONE Inactive Vital Signs Date Name Value [...] Measured Encounters Code Encounter Date Provider Facility CPT-10837 Level 4 Est. Patient 09:30:39 CDT Ayan goldsmith DO [facility] CPT-52406 Level 3 Est. Patient 17:31:00 DEGREASER OPERATOR Cj Rodriguez [facility] [place] CPT-87994 Level 3 Est. Patient 19:07:23 CDT Cj Rodriguez [facility] CPT-94399 Level 3 Est. Patient 16:45:43 DEGREASER OPERATOR Marielena Barrett APRN [facility] CPT-06480 Level 3 Est. Patient 14:52:49 DEGREASER OPERATOR Eric muhammad MD [facility] CPT-16885 Level 3 Est. Patient 15:41:51 CDT Eric muhammad MD [facility]
--- OUTSIDE RECORDS SUMMARY | 2020-04-05 22:11 | XMS REPORT | Clinical Summary ---
Author Author Admin, Esequiel Vo Organization [facility] Address Unknown Phone Unavailable Allergies, Adverse Reactions, [...] status migrainosus Insomnia 780.52 Active Marielena Estes TRAY DELIVERY AIDE Insomnia, unspecified Depression 311 Active Marielena Estes [...] needed for wheeze or cough ALBUTEROL SULFATE 94261955825 Active B lebron Devi DO Active METOPROLOL SUCCINATE ER 25 MG ORAL [id number] 1 tablet daily for elevated blood pressure and heart rate METOPROLOL SUCCINATE 40750652241 A ctive Ayan Devi DO Active AZITHROMYCIN 250 MG TABS 2 po qd x 1 day, then 1 po qd x 4 days AZITHROMYCIN 14135981954 No Longer Active Ayan Devi DO A ctive TRAMADOL HCL 50 MG ORAL TABS Take 1/2 tab po TID with extra strength tylenol TRAMADOL HCL 02237847576 No Longer Active Ayan Devi DO Active FENTANYL 12 MCG/HR TRANS PT72 Apply two patches to boris an dry skin and change every 3 days. FENTANYL 20769151116 No Longer Active Monica Devi DO Active VENLAFAXINE HCL ER 75 MG ORAL [id number] 1 capsule daily for anxiety/depression VENLAFAXINE HCL 83585374872 Active Ayan Devi DO Active VENLAFAXINE HCL 37.5 MG ORAL TABS Take 1 tab po daily x 7 days then increase to twice daily VENLAFAXINE HCL 09548988324 No Longer Active Ayan Devi DO Active ZOLPIDEM TARTRATE 10 MG ORAL TABS 1 tab PO at hs PRN insomnia 20 03/09/08 ZOLPIDEM TARTRATE 26400196686 No Longer Active Ayan Devi DO Active ALPRAZOLAM 0.5 MG ORAL TABS 1 PO q 8 hrs PRN AL PRAZOLAM 94487751307 No Longer Active Ayan Devi DO Active ESCITALOPRAM OXALATE 10 MG ORAL TABS 1 tab PO daily ESCITALOPRAM OXALATE 28375986556 No Longer Active Cj Valencia CITALOPRAM HYDROBROMIDE 20 MG ORAL TABS 1 tablet PO da asha. Do not miss or skip doses. Contact your provider if you intend to discontinue this medication. CITALOPRAM HYDROBROMIDE 55779921101 No Longer Active Kiley Naff PERFUME MAKER Active ALPRAZOLAM 0.5 MG ORAL TABS 1 tablet PO q 8 hrs PRN 03/09/08 ALPRAZOLAM 83273126295 No Longer Active Kiley Vang PERFUME MAKER Active TYLENOL PM EXTRA STRENGTH 1000-50 MG/30ML ORAL LIQD 2 tabs p o at bedtime DIPHENHYDRAMINE-APAP (SLEEP) 36350006414 No Longer Ac tive Kiley Vang PERFUME MAKER Active TOPAMAX 25 MG TABS 1 qHS x 1 week, then 1 BID x 1 week, then 1 qAM and 2 qHS x 1 week, then 2 BID (migraine prevention) TOPIRAMAT E 35044477675 No Longer Active Cj SARAH Active AMITRIPTYLINE HCL 25 MG TABS 1 tablet at HS AMITRIPTYLINE HCL 75941451036 No Longer Active Cj SARAH Activ e MOBIC 7.5 MG TABS 1 tablet by mouth twice daily MELOXICAM 54535803465 No Longer Active Marielena Estes APRN Active PREDNISONE 20 MG TAB 3 tabs daily for 3 days, 2 t abs daily for 3 days, 1 tab daily for 3 days, 1/2 tab daily for 3 days PREDN ISONE 47528562302 No Longer Active Eric Hester MD Active PREDNISONE 20 MG TAB 2 tabs daily for 3 days, 1 t ab daily for 3 days, 1/2 tab daily for 2 days PREDNISONE 42166874888 No Longer Active Eric Hester MD Active MOBIC 7.5 MG TABS 1 tablet by mouth twice daily 10/30 MOBIC 7.5 MG TABS 183598 MELOXICAM Inactive AMITRIPTYLINE HCL 25 MG TABS 1 tablet at HS AMITRIPTYLINE HCL 25 MG TABS 341739 AMITRIPTYLINE HCL Inactive TOPAMAX 25 MG TABS 1 qHS x 1 week, then 1 BID x 1 week, then 1 qAM and 2 qHS x 1 week, then 2 BID (migraine prevention) TOPAMAX 2 5 MG TABS 402604 TOPIRAMATE Inactive TYLENOL PM EXTRA STRENGTH 1000-50 MG/30ML ORAL LIQD 2 tabs p o at bedtime TYLENOL PM EXTRA STRENGTH 1000-50 MG/30ML ORAL L IQD DIPHENHYDRAMINE-APAP (SLEEP) Inactive ALPRAZOLAM 0.5 MG ORAL TABS 1 tablet PO q 8 hrs PRN 20 03/09/08 ALPRAZOLAM 0.5 MG ORAL TABS 173789 ALPRAZOLAM Inactive CITALOPRAM HYDROBROMIDE 20 MG ORAL TABS 1 tablet PO da asha. Do not miss or skip doses. Contact your provider if you intend to discontinue this medication. CITALOPRAM HYDROBROMIDE 20 MG ORAL TABS 999800 CITALOPRAM HYDROBROMIDE Inactive ALPRAZOLAM 0.5 MG ORAL TABS 1 PO q 8 hrs PRN 1 ALPRAZOLAM 0.5 MG ORAL TABS 778813 ALPRAZOLAM Inactive ZOLPIDEM TARTRATE 10 MG ORAL TABS 1 tab PO at hs PRN insomnia 20 03/09/08 ZOLPIDEM TARTRATE 10 MG ORAL TABS 662467 ZOLPIDEM TARTR ATE Inactive VENLAFAXINE HCL 37.5 MG ORAL TABS Take 1 tab po daily x 7 days then increase to twice daily VENLAFAXINE HCL 37.5 MG ORAL TABS 296258 VENLAFAXINE HCL Inactive FENTANYL 12 MCG/HR TRANS PT72 Apply two patches to boris an dry skin and change every 3 days. FENTANYL 12 MCG/HR TRANS PT72 311215 FENTANYL Inactive TRAMADOL HCL 50 MG ORAL TABS Take 1/2 tab po TID with extra strength tylenol TRAMADOL HCL 50 MG ORAL TABS 226204 TRAMADOL HCL Inactive PREDNISONE 20 MG TAB 2 tabs daily for 3 days, 1 t ab daily for 3 days, 1/2 tab daily for 2 days PREDNISONE 20 MG TAB 923404 PREDNISON E Inactive PREDNISONE 20 MG TAB 3 tabs daily for 3 days, 2 t abs daily for 3 days, 1 tab daily for 3 days, 1/2 tab daily for 3 days PREDNISONE 20 MG TAB 300064 PREDNISONE Inactive AZITHROMYCIN 250 MG TABS 2 po qd x 1 day, then 1 po qd x 4 days AZITHROMYCIN 250 MG TABS 6138631 AZITHROMYCIN Inactiv e Vital Signs Date Name [...] Negative;Positive Encounters Code Encounter Date Provider Facility CPT-56899 Level 3 Est. Patient 10:38:22 CDT Ayan Pak [facility] CPT-52891 Level 4 Est. Patient 09:30:39 CDT Ayan goldsmith [facility] CPT-16215 Level 3 Est. Patient 17:31:00 SAND CARRIER Cj Rodriguez [facility] CPT-70529 Level 3 Est. Patient 19:07:23 CDT Cj Rodriguez [facility] CPT-24324 Level 3 Est. Patient 16:45:43 SAND CARRIER Marielena Barrett APRN [facility] CPT-87275 Level 3 Est. Patient 14:52:49 SAND CARRIER Eric muhammad MD [facility] CPT-17538 Level 3 Est. Patient 15:41:51 CDT Eric muhammad MD [facility] Procedures Code Procedure Name Date Entry Date Standard Desc ription CPT-64622 Chest 2V Frontal and Lat 10:48:26 CDT 01/08
--- OUTSIDE RECORDS SUMMARY | 2020-04-05 22:11 | XMS REPORT | Clinical Summary ---
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 Insomnia, unspecified Depression 311 Active Marielena Estes [...] Instruction METOPROLOL SUCCINATE ER 25 MG ORAL [id number] 1 tablet daily for elevated blood pressure and heart rate METOPROLOL SUCCINATE 332876923 10 No Longer Active Ayan Devi DO Active METOPROLOL SUCCINATE 50 MG TB24 1 tablet by mouth daily METOPROLOL SUCCINATE 42031080195 Active Ayan Devi DO Active PROAIR HFA 108 (90 BASE) MCG/ACT AERS 2 puffs four lindsey es a day as needed for wheeze or cough ALBUTEROL SULFATE 08860319726 No Long er Active Ayan Devi DO Active AZITHROMYCIN 250 MG TABS 2 po qd x 1 day, then 1 po qd x 4 days AZITHROMYCIN 94559103475 No Longer Active Ayan Devi DO A ctive TRAMADOL HCL 50 MG ORAL TABS Take 1/2 tab po TID with extra strength tylenol TRAMADOL HCL 12954188778 No Longer Active Ayan Devi DO Active FENTANYL 12 MCG/HR TRANS PT72 Apply two patches to boris an dry skin and change every 3 days. FENTANYL 04293285906 No Longer Active Monica Devi DO Active VENLAFAXINE HCL ER 75 MG ORAL [id number]-SBC 1 capsule daily for anxiety/depression VENLAFAXINE HCL 97424712469 Active Ayan Devi DO Active VENLAFAXINE HCL 37.5 MG ORAL TABS Take 1 tab po daily x 7 days then increase to twice daily VENLAFAXINE HCL 18131732716 No Longer Active Ayan Devi DO Active ZOLPIDEM TARTRATE 10 MG ORAL TABS 1 tab PO at hs PRN insomnia 20 03/09/08 ZOLPIDEM TARTRATE 44932945999 No Longer Active Ayan Devi DO Active ALPRAZOLAM 0.5 MG ORAL TABS 1 PO q 8 hrs PRN AL PRAZOLAM 95429996711 No Longer Active Ayan Devi DO Active ESCITALOPRAM OXALATE 10 MG ORAL TABS 1 tab PO daily ESCITALOPRAM OXALATE 78494220037 No Longer Active Cj SARAH Activ e CITALOPRAM HYDROBROMIDE 20 MG ORAL TABS 1 tablet PO da asha. Do not miss or skip doses. Contact your provider if you intend to discontinue this medication. 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 ALPRAZOLAM 0.5 MG ORAL TABS 1 tablet PO q 8 hrs PRN 03/09/08 ALPRAZOLAM 73839860556 No Longer Active Kiley Vang UTILITY TENDER CARDING Active TYLENOL PM EXTRA STRENGTH 1000-50 MG/30ML ORAL LIQD 2 tabs p o at bedtime DIPHENHYDRAMINE-APAP (SLEEP) 69925207786 No Longer Ac tive Kiley Kellyalessandra UTILITY TENDER CARDING Active TOPAMAX 25 MG TABS 1 qHS x 1 week, then 1 BID x 1 week, then 1 qAM and 2 qHS x 1 week, then 2 BID (migraine prevention) TOPIRAMAT E 45992640288 No Longer Active Cj SARAH Active AMITRIPTYLINE HCL 25 MG TABS 1 tablet at HS AMITRIPTYLINE HCL 76291095898 No Longer Active Cj Grijalva e MOBIC 7.5 MG TABS 1 tablet by mouth twice daily MELOXICAM 97459415604 No Longer Active Marielena Estes APRN Active PREDNISONE 20 MG TAB 3 tabs daily for 3 days, 2 t abs daily for 3 days, 1 tab daily for 3 days, 1/2 tab daily for 3 days PREDN ISONE 53671193604 No Longer Active Eric Hester MD Active PREDNISONE 20 MG TAB 2 tabs daily for 3 days, 1 t ab daily for 3 days, 1/2 tab daily for 2 days PREDNISONE 97285835711 No Longer Active Eric Hester MD Active MOBIC 7.5 MG TABS 1 tablet by mouth twice daily 10/30 MOBIC 7.5 MG TABS 907367 MELOXICAM Inactive AMITRIPTYLINE HCL 25 MG TABS 1 tablet at HS AMITRIPTYLINE HCL 25 MG TABS 442222 AMITRIPTYLINE HCL Inactive TOPAMAX 25 MG TABS 1 qHS x 1 week, then 1 BID x 1 week, then 1 qAM and 2 qHS x 1 week, then 2 BID (migraine prevention) TOPAMAX 2 5 MG TABS 127412 TOPIRAMATE Inactive TYLENOL PM EXTRA STRENGTH 1000-50 MG/30ML ORAL LIQD 2 tabs p o at bedtime TYLENOL PM EXTRA STRENGTH 1000-50 MG/30ML ORAL L IQD DIPHENHYDRAMINE-APAP (SLEEP) Inactive ALPRAZOLAM 0.5 MG ORAL TABS 1 tablet PO q 8 hrs PRN 20 03/09/08 ALPRAZOLAM 0.5 MG ORAL TABS 844893 ALPRAZOLAM Inactive CITALOPRAM HYDROBROMIDE 20 MG ORAL TABS 1 tablet PO da asha. Do not miss or skip doses. Contact your provider if you intend to discontinue this medication. CITALOPRAM HYDROBROMIDE 20 MG ORAL TABS 421148 CITALOPRAM HYDROBROMIDE Inactive ALPRAZOLAM 0.5 MG ORAL TABS 1 PO q 8 hrs PRN 1 ALPRAZOLAM 0.5 MG ORAL TABS 878788 ALPRAZOLAM Inactive ZOLPIDEM TARTRATE 10 MG ORAL TABS 1 tab PO at hs PRN insomnia 20 03/09/08 ZOLPIDEM TARTRATE 10 MG ORAL TABS 612457 ZOLPIDEM TARTR ATE Inactive VENLAFAXINE HCL 37.5 MG ORAL TABS Take 1 tab po daily x 7 days then increase to twice daily VENLAFAXINE HCL 37.5 MG ORAL TABS 887255 VENLAFAXINE HCL Inactive FENTANYL 12 MCG/HR TRANS PT72 Apply two patches to boris an dry skin and change every 3 days. FENTANYL 12 MCG/HR TRANS PT72 499056 FENTANYL Inactive TRAMADOL HCL 50 MG ORAL TABS Take 1/2 tab po TID with extra strength tylenol TRAMADOL HCL 50 MG ORAL TABS 745996 TRAMADOL HCL Inactive PROAIR HFA 108 (90 BASE) MCG/ACT AERS 2 puffs four lindsey es a day as needed for wheeze or cough PROAIR HFA 108 (90 BASE) MCG/ACT AERS ALBUTEROL SULFATE Inactive METOPROLOL SUCCINATE ER 25 MG ORAL [id number] 1 tablet daily for elevated blood pressure and heart rate METOPROLOL SUCCI VANDANA ER 25 MG ORAL [id number] METOPROLOL SUCCINATE Inactive PREDNISONE 20 MG TAB 2 tabs daily for 3 days, 1 t ab daily for 3 days, 1/2 tab daily for 2 days PREDNISONE 20 MG TAB 461531 PREDNISON E Inactive PREDNISONE 20 MG TAB 3 tabs daily for 3 days, 2 t abs daily for 3 days, 1 tab daily for 3 days, 1/2 tab daily for 3 days PREDNISONE 20 MG TAB 353641 PREDNISONE Inactive AZITHROMYCIN 250 MG TABS 2 po qd x 1 day, then 1 po qd x 4 days AZITHROMYCIN 250 MG TABS 5695725 AZITHROMYCIN Inactiv e Vital Signs Date Name [...] Negative;Positive Encounters Code Encounter Date Provider Facility CPT-09515 Level 3 Est. Patient 10:14:46 CDT Ayan goldsmith [facility] CPT-91176 Level 3 Est. Patient 10:38:22 CDT Ayan goldsmith [facility] CPT-81265 Level 4 Est. Patient 09:30:39 CDT Ayan goldsmith DO [facility] CPT-93367 Level 3 Est. Patient 17:31:00 TECHNICAL SPECIALIST Cj Rodriguez [facility] CPT-58625 Level 3 Est. Patient 19:07:23 CDT Cj Rodriguez [facility] CPT-75148 Level 3 Est. Patient 16:45:43 TECHNICAL SPECIALIST Marielena Barrett APRN [facility] CPT-21442 Level 3 Est. Patient 14:52:49 TECHNICAL SPECIALIST Eric muhammad MD [facility] CPT-68881 Level 3 Est. Patient 15:41:51 CDT Eric muhammad MD [facility] Procedures Code Procedure Name Date Entry Date Standard Desc ription CPT-93266 Chest 2V Frontal and Lat 10:48:26 CDT 01/08
--- OUTSIDE RECORDS SUMMARY | 2020-04-05 22:11 | XMS REPORT | Clinical Summary ---
Author Author Admin, Esequiel Vo Organization 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 Do not miss or skip doses. Contact your provider if you intend to discontinue this medication. CITALOPRAM HYDROBROMIDE 23219808731 Active Cj SARAH Active TYLENOL PM EXTRA STRENGTH 1000-50 MG/30ML ORAL LIQD 2 tabs p o at bedtime DIPHENHYDRAMINE-APAP (SLEEP) 03731613793 Active Cj SARAH Active TOPAMAX 25 MG TABS 1 qHS x 1 week, then 1 BID x 1 week, then 1 qAM and 2 qHS x 1 week, then 2 BID (migraine prevention) TOPIRAMAT E 03000099807 No Longer Active Cj SARAH Active AMITRIPTYLINE HCL 25 MG TABS 1 tablet at HS AMITRIPTYLINE HCL 76716782029 No Longer Active Cj SARAH Activ e MOBIC 7.5 MG TABS 1 tablet by mouth twice daily MELOXICAM 59704999828 No Longer Active Marielena Estes APRN Active PREDNISONE 20 MG TAB 3 tabs daily for 3 days, 2 t abs daily for 3 days, 1 tab daily for 3 days, 1/2 tab daily for 3 days PREDN ISONE 24196537444 No Longer Active Eric Hester MD Active PREDNISONE 20 MG TAB 2 tabs daily for 3 days, 1 t ab daily for 3 days, 1/2 tab daily for 2 days PREDNISONE 70695008370 No Longer Active Eric Hester MD Active MOBIC 7.5 MG TABS 1 tablet by mouth twice daily 10/30 MOBIC 7.5 MG TABS 334774 MELOXICAM Inactive AMITRIPTYLINE HCL 25 MG TABS 1 tablet at HS AMITRIPTYLINE HCL 25 MG TABS 852273 AMITRIPTYLINE HCL Inactive TOPAMAX 25 MG TABS 1 qHS x 1 week, then 1 BID x 1 week, then 1 qAM and 2 qHS x 1 week, then 2 BID (migraine prevention) TOPAMAX 2 5 MG TABS 511572 TOPIRAMATE Inactive PREDNISONE 20 MG TAB 2 tabs daily for 3 days, 1 t ab daily for 3 days, 1/2 tab daily for 2 days PREDNISONE 20 MG TAB 759904 PREDNISON E Inactive PREDNISONE 20 MG TAB 3 tabs daily for 3 days, 2 t abs daily for 3 days, 1 tab daily for 3 days, 1/2 tab daily for 3 days PREDNISONE 20 MG TAB 711970 PREDNISONE Inactive Vital Signs Date Name Value Unit Range Description blood pressure, diastolic - 8462-4 88 mm[Hg] [...] Measured Encounters Code Encounter Date Provider Facility CPT-53992 Level 3 Est. Patient 19:07:[address] [facility] CPT-52088 Level 3 Est. Patient 16:45:43 SECURITY ATTENDANT Marielena Barertt APRN [facility] CPT-07640 Level 3 Est. Patient 14:52:49 SECURITY ATTENDANT Eric muhammad MD [facility] CPT-84987 Level 3 Est. Patient 15:41:51 CDT Eric muhammad MD [facility]
--- OUTSIDE RECORDS SUMMARY | 2020-04-05 22:12 | XMS REPORT | Clinical Summary ---
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 Insomnia, unspecified Depression 311 Active Marielena [...] Instruction METOPROLOL SUCCINATE ER 25 MG ORAL [id number] 1 tablet daily for elevated blood pressure and heart rate METOPROLOL SUCCINATE 470368599 10 No Longer Active Ayan Devi DO Active METOPROLOL SUCCINATE 50 MG TB24 1 tablet by mouth daily METOPROLOL SUCCINATE 33845574244 Active Ayan Devi DO Active PROAIR HFA 108 (90 BASE) MCG/ACT AERS 2 puffs four lindsey es a day as needed for wheeze or cough ALBUTEROL SULFATE 45952111063 No Long er Active Ayan Devi DO Active AZITHROMYCIN 250 MG TABS 2 po qd x 1 day, then 1 po qd x 4 days AZITHROMYCIN 82308906707 No Longer Active Ayan Devi DO A ctive TRAMADOL HCL 50 MG ORAL TABS Take 1/2 tab po TID with extra strength tylenol TRAMADOL HCL 76924272024 No Longer Active Ayan Devi DO Active FENTANYL 12 MCG/HR TRANS PT72 Apply two patches to boris an dry skin and change every 3 days. FENTANYL 47279277683 No Longer Active Monica Devi DO Active VENLAFAXINE HCL ER 75 MG ORAL [id number] 1 capsule daily for anxiety/depression VENLAFAXINE HCL 63211767209 Active Ayan Devi DO Active VENLAFAXINE HCL 37.5 MG ORAL TABS Take 1 tab po daily x 7 days then increase to twice daily VENLAFAXINE HCL 57578388059 No Longer Active Ayan Devi DO Active ZOLPIDEM TARTRATE 10 MG ORAL TABS 1 tab PO at hs PRN insomnia 20 03/09/08 ZOLPIDEM TARTRATE 16277955567 No Longer Active Ayan Devi DO Active ALPRAZOLAM 0.5 MG ORAL TABS 1 PO q 8 hrs PRN AL PRAZOLAM 22578131534 No Longer Active Ayan Devi DO Active ESCITALOPRAM OXALATE 10 MG ORAL TABS 1 tab PO daily ESCITALOPRAM OXALATE 26819696146 No Longer Active Cj SARAH Activ e CITALOPRAM HYDROBROMIDE 20 MG ORAL TABS 1 tablet PO da asha. Do not miss or skip doses. Contact your provider if you intend to discontinue this medication. CITALOPRAM HYDROBROMIDE 16258511869 No Longer Active Kiley Vang [employer] Active ALPRAZOLAM 0.5 MG ORAL TABS 1 tablet PO q 8 hrs PRN 03/09/08 ALPRAZOLAM 40308974121 No Longer Active Kiley Vang [employer] Active TYLENOL PM EXTRA STRENGTH 1000-50 MG/30ML ORAL LIQD 2 tabs p o at bedtime DIPHENHYDRAMINE-APAP (SLEEP) 29143046615 No Longer Ac tive Kiley Kellyalessandra [employer] Active TOPAMAX 25 MG TABS 1 qHS x 1 week, then 1 BID x 1 week, then 1 qAM and 2 qHS x 1 week, then 2 BID (migraine prevention) TOPIRAMAT E 90934209937 No Longer Active Cj SARAH Active AMITRIPTYLINE HCL 25 MG TABS 1 tablet at HS AMITRIPTYLINE HCL 53626008772 No Longer Active Cj Grijalva e MOBIC 7.5 MG TABS 1 tablet by mouth twice daily MELOXICAM 94185835240 No Longer Active Marielena Estes APRN Active PREDNISONE 20 MG TAB 3 tabs daily for 3 days, 2 t abs daily for 3 days, 1 tab daily for 3 days, 1/2 tab daily for 3 days PREDN ISONE 69157635808 No Longer Active Eric Hester MD Active PREDNISONE 20 MG TAB 2 tabs daily for 3 days, 1 t ab daily for 3 days, 1/2 tab daily for 2 days PREDNISONE 81125258098 No Longer Active Eric Hester MD Active MOBIC 7.5 MG TABS 1 tablet by mouth twice daily 10/30 MOBIC 7.5 MG TABS 910812 MELOXICAM Inactive AMITRIPTYLINE HCL 25 MG TABS 1 tablet at HS AMITRIPTYLINE HCL 25 MG TABS 845878 AMITRIPTYLINE HCL Inactive TOPAMAX 25 MG TABS 1 qHS x 1 week, then 1 BID x 1 week, then 1 qAM and 2 qHS x 1 week, then 2 BID (migraine prevention) TOPAMAX 2 5 MG TABS 105177 TOPIRAMATE Inactive TYLENOL PM EXTRA STRENGTH 1000-50 MG/30ML ORAL LIQD 2 tabs p o at bedtime TYLENOL PM EXTRA STRENGTH 1000-50 MG/30ML ORAL L IQD DIPHENHYDRAMINE-APAP (SLEEP) Inactive ALPRAZOLAM 0.5 MG ORAL TABS 1 tablet PO q 8 hrs PRN 20 03/09/08 ALPRAZOLAM 0.5 MG ORAL TABS 988995 ALPRAZOLAM Inactive CITALOPRAM HYDROBROMIDE 20 MG ORAL TABS 1 tablet PO da asha. Do not miss or skip doses. Contact your provider if you intend to discontinue this medication. CITALOPRAM HYDROBROMIDE 20 MG ORAL TABS 259874 CITALOPRAM HYDROBROMIDE Inactive ALPRAZOLAM 0.5 MG ORAL TABS 1 PO q 8 hrs PRN 1 ALPRAZOLAM 0.5 MG ORAL TABS 991685 ALPRAZOLAM Inactive ZOLPIDEM TARTRATE 10 MG ORAL TABS 1 tab PO at hs PRN insomnia 20 03/09/08 ZOLPIDEM TARTRATE 10 MG ORAL TABS 710144 ZOLPIDEM TARTR ATE Inactive VENLAFAXINE HCL 37.5 MG ORAL TABS Take 1 tab po daily x 7 days then increase to twice daily VENLAFAXINE HCL 37.5 MG ORAL TABS 686204 VENLAFAXINE HCL Inactive FENTANYL 12 MCG/HR TRANS PT72 Apply two patches to boris an dry skin and change every 3 days. FENTANYL 12 MCG/HR TRANS PT72 339709 FENTANYL Inactive TRAMADOL HCL 50 MG ORAL TABS Take 1/2 tab po TID with extra strength tylenol TRAMADOL HCL 50 MG ORAL TABS 290521 TRAMADOL HCL Inactive PROAIR HFA 108 (90 BASE) MCG/ACT AERS 2 puffs four lindsey es a day as needed for wheeze or cough PROAIR HFA 108 (90 BASE) MCG/ACT AERS ALBUTEROL SULFATE Inactive METOPROLOL SUCCINATE ER 25 MG ORAL [id number] 1 tablet daily for elevated blood pressure and heart rate METOPROLOL SUCCI VANDANA ER 25 MG ORAL [id number] METOPROLOL SUCCINATE Inactive PREDNISONE 20 MG TAB 2 tabs daily for 3 days, 1 t ab daily for 3 days, 1/2 tab daily for 2 days PREDNISONE 20 MG TAB 640622 PREDNISON E Inactive PREDNISONE 20 MG TAB 3 tabs daily for 3 days, 2 t abs daily for 3 days, 1 tab daily for 3 days, 1/2 tab daily for 3 days PREDNISONE 20 MG TAB 943882 PREDNISONE Inactive AZITHROMYCIN 250 MG TABS 2 po qd x 1 day, then 1 po qd x 4 days AZITHROMYCIN 250 MG TABS 4753494 AZITHROMYCIN Inactiv e Vital Signs Date Name [...] Panel - Chemistry sodium, serum 141 mmol/L 322-679 3821/06/09 carbon dioxide, venous blood 30.5 mmol/L 21.0-32 [...] Negative;Positive Encounters Code Encounter Date Provider Facility CPT-97335 Level 3 Est. Patient 10:14:46 CDT Ayan goldsmith [facility] CPT-58390 Level 3 Est. Patient 10:38:22 CDT Ayan goldsmith [facility] CPT-04437 Level 4 Est. Patient 09:30:39 CDT Ayan goldsmith [facility] CPT-24067 Level 3 Est. Patient 17:31:00 MISSION PLANNER Cj Rodriguez [facility] [place] CPT-56611 Level 3 Est. Patient 19:07:23 CDT Cj Rodriguez [facility] CPT-76532 Level 3 Est. Patient 16:45:43 MISSION PLANNER Marielena Barrett APRN [facility] CPT-57512 Level 3 Est. Patient 14:52:49 MISSION PLANNER Eric muhammad MD [facility] CPT-36850 Level 3 Est. Patient 15:41:51 CDT Eric muhammad MD [facility] Procedures Code Procedure Name Date Entry Date Standard Desc ription CPT-42334 Chest 2V Frontal and Lat 10:48:26 CDT 01/08
--- OUTSIDE RECORDS SUMMARY | 2020-04-05 22:12 | XMS REPORT | Clinical Summary ---
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 Insomnia, unspecified Depression 311 Active Marielena Estes [...] needed for wheeze or cough ALBUTEROL SULFATE 10117394854 Active B lebron Devi DO Active METOPROLOL SUCCINATE ER 25 MG ORAL [id number] 1 tablet daily for elevated blood pressure and heart rate METOPROLOL SUCCINATE 96781935973 A ctive Ayan Devi DO Active AZITHROMYCIN 250 MG TABS 2 po qd x 1 day, then 1 po qd x 4 days AZITHROMYCIN 34632745867 Active Ayan Devi DO Active TRAMADOL HCL 50 MG ORAL TABS Take 1/2 tab po TID with extra strength tylenol TRAMADOL HCL 08915082622 No Longer Active Ayan Devi DO Active FENTANYL 12 MCG/HR TRANS PT72 Apply two patches to boris an dry skin and change every 3 days. FENTANYL 37654339973 No Longer Active Monica Devi DO Active VENLAFAXINE HCL ER 75 MG ORAL [id number] 1 capsule daily for anxiety/depression VENLAFAXINE HCL 00677600495 Active Ayan Devi DO Active VENLAFAXINE HCL 37.5 MG ORAL TABS Take 1 tab po daily x 7 days then increase to twice daily VENLAFAXINE HCL 28796336996 No Longer Active Ayan Devi DO Active ZOLPIDEM TARTRATE 10 MG ORAL TABS 1 tab PO at hs PRN insomnia 20 03/09/08 ZOLPIDEM TARTRATE 10010908811 No Longer Active Ayan Devi DO Active ALPRAZOLAM 0.5 MG ORAL TABS 1 PO q 8 hrs PRN AL PRAZOLAM 61172246166 No Longer Active Ayan Devi DO Active ESCITALOPRAM OXALATE 10 MG ORAL TABS 1 tab PO daily ESCITALOPRAM OXALATE 10511147178 No Longer Active Cj Valencia CITALOPRAM HYDROBROMIDE 20 MG ORAL TABS 1 tablet PO da asha. Do not miss or skip doses. Contact your provider if you intend to discontinue this medication. CITALOPRAM HYDROBROMIDE 17567828664 No Longer Active Kiley Naff HIDE OR SKIN BUFFER Active ALPRAZOLAM 0.5 MG ORAL TABS 1 tablet PO q 8 hrs PRN 03/09/08 ALPRAZOLAM 17994625063 No Longer Active Kiley Vang HIDE OR SKIN BUFFER Active TYLENOL PM EXTRA STRENGTH 1000-50 MG/30ML ORAL LIQD 2 tabs p o at bedtime DIPHENHYDRAMINE-APAP (SLEEP) 78022840536 No Longer Ac tive Kiley Vang HIDE OR SKIN BUFFER Active TOPAMAX 25 MG TABS 1 qHS x 1 week, then 1 BID x 1 week, then 1 qAM and 2 qHS x 1 week, then 2 BID (migraine prevention) TOPIRAMAT E 62467385686 No Longer Active Cj SARAH Active AMITRIPTYLINE HCL 25 MG TABS 1 tablet at HS AMITRIPTYLINE HCL 49557625400 No Longer Active Cj SARAH Activ e MOBIC 7.5 MG TABS 1 tablet by mouth twice daily MELOXICAM 30534390778 No Longer Active Marielena Estes APRN Active PREDNISONE 20 MG TAB 3 tabs daily for 3 days, 2 t abs daily for 3 days, 1 tab daily for 3 days, 1/2 tab daily for 3 days PREDN ISONE 19489882358 No Longer Active Eric Hester MD Active PREDNISONE 20 MG TAB 2 tabs daily for 3 days, 1 t ab daily for 3 days, 1/2 tab daily for 2 days PREDNISONE 35150222899 No Longer Active Eric Hester MD Active MOBIC 7.5 MG TABS 1 tablet by mouth twice daily 10/30 MOBIC 7.5 MG TABS 505704 MELOXICAM Inactive AMITRIPTYLINE HCL 25 MG TABS 1 tablet at HS AMITRIPTYLINE HCL 25 MG TABS 636169 AMITRIPTYLINE HCL Inactive TOPAMAX 25 MG TABS 1 qHS x 1 week, then 1 BID x 1 week, then 1 qAM and 2 qHS x 1 week, then 2 BID (migraine prevention) TOPAMAX 2 5 MG TABS 537704 TOPIRAMATE Inactive TYLENOL PM EXTRA STRENGTH 1000-50 MG/30ML ORAL LIQD 2 tabs p o at bedtime TYLENOL PM EXTRA STRENGTH 1000-50 MG/30ML ORAL L IQD DIPHENHYDRAMINE-APAP (SLEEP) Inactive ALPRAZOLAM 0.5 MG ORAL TABS 1 tablet PO q 8 hrs PRN 20 03/09/08 ALPRAZOLAM 0.5 MG ORAL TABS 883346 ALPRAZOLAM Inactive CITALOPRAM HYDROBROMIDE 20 MG ORAL TABS 1 tablet PO da asha. Do not miss or skip doses. Contact your provider if you intend to discontinue this medication. CITALOPRAM HYDROBROMIDE 20 MG ORAL TABS 770721 CITALOPRAM HYDROBROMIDE Inactive ALPRAZOLAM 0.5 MG ORAL TABS 1 PO q 8 hrs PRN 1 ALPRAZOLAM 0.5 MG ORAL TABS 740491 ALPRAZOLAM Inactive ZOLPIDEM TARTRATE 10 MG ORAL TABS 1 tab PO at hs PRN insomnia 20 03/09/08 ZOLPIDEM TARTRATE 10 MG ORAL TABS 596518 ZOLPIDEM TARTR ATE Inactive VENLAFAXINE HCL 37.5 MG ORAL TABS Take 1 tab po daily x 7 days then increase to twice daily VENLAFAXINE HCL 37.5 MG ORAL TABS 463602 VENLAFAXINE HCL Inactive FENTANYL 12 MCG/HR TRANS PT72 Apply two patches to boris an dry skin and change every 3 days. FENTANYL 12 MCG/HR TRANS PT72 052743 FENTANYL Inactive TRAMADOL HCL 50 MG ORAL TABS Take 1/2 tab po TID with extra strength tylenol TRAMADOL HCL 50 MG ORAL TABS 357794 TRAMADOL HCL Inactive PREDNISONE 20 MG TAB 2 tabs daily for 3 days, 1 t ab daily for 3 days, 1/2 tab daily for 2 days PREDNISONE 20 MG TAB 811094 PREDNISON E Inactive PREDNISONE 20 MG TAB 3 tabs daily for 3 days, 2 t abs daily for 3 days, 1 tab daily for 3 days, 1/2 tab daily for 3 days PREDNISONE 20 MG TAB 552495 PREDNISONE Inactive Vital Signs Date Name Value [...] Negative;Positive Encounters Code Encounter Date Provider Facility CPT-71339 Level 3 Est. Patient 10:38:22 CDT Ayan goldsmith [facility] CPT-30532 Level 4 Est. Patient 09:30:39 CDT Ayan goldsmith [facility] CPT-49814 Level 3 Est. 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 Patient 19:07:23 CDT Cj Rodriguez [facility] CPT-88922 Level 3 Est. Patient 16:45:43 DENTAL LABORATORY SUPERVISOR Marielena Barrett APRN [facility] CPT-26774 Level 3 Est. Patient 14:52:49 DENTAL LABORATORY SUPERVISOR Eric muhammad MD [facility] CPT-70300 Level 3 Est. Patient 15:41:51 CDT Eric muhammad MD [facility] Procedures Code Procedure Name Date Entry Date Standard Desc ription CPT-52052 Chest 2V Frontal and Lat 10:48:26 CDT 01/08
--- OUTSIDE RECORDS SUMMARY | 2020-04-05 22:12 | XMS REPORT | Clinical Summary ---
Author Author Admin, Esequiel Vo Organization [facility] Address Unknown Phone Unavailable Allergies, Adverse Reactions, Alerts Allergy Name Reaction Description Start Date Severity Status Pr ovider No Known Allergies [facility] Conditions or Problems Problem Name Problem Code Onset Date Status Entry Date Provider Comment Standard Description Annotate LOW BACK PAIN SYNDROME 724.2 Active Eric rutherford MD Lumbago Migraine headache 346.90 Active Marielena Samano PRN Migraine, unspecified, without mention of intractable migraine, without mention of status migrainosus Insomnia 780.52 Active Marielena Estes HIDE HANDLER Insomnia, unspecified Depression 311 Active Marielena Estes APRN Depressive disorder, not elsewhere classified Hemorrhoids, external 455.3 Active Cj SARAH External hemorrhoids without mention of complication Anxiety 300.00 Active Cj SARAH Anxiety state, unspecified Medication List Medication Instructions Start Date Stop Date Generic Name [facility] Status Provider Patient Instruction ALPRAZOLAM 0.5 MG ORAL TABS 1 tablet PO q 8 hrs PRN ALPRAZOLAM 13123013182 Active Cj SARAH Active CITALOPRAM HYDROBROMIDE 20 MG ORAL TABS 1 tablet PO da asha. Do not miss or skip doses. Contact your provider if you intend to discontinue this medication. CITALOPRAM HYDROBROMIDE 48562478399 Active Cj SARAH Active TYLENOL PM EXTRA STRENGTH 1000-50 MG/30ML ORAL LIQD 2 tabs p o at bedtime DIPHENHYDRAMINE-APAP (SLEEP) 43362325008 Active Cj SARAH Active TOPAMAX 25 MG TABS 1 qHS x 1 week, then 1 BID x 1 week, then 1 qAM and 2 qHS x 1 week, then 2 BID (migraine prevention) TOPIRAMAT E 30206598658 No Longer Active Cj SARAH Active AMITRIPTYLINE HCL 25 MG TABS 1 tablet at HS AMITRIPTYLINE HCL 41435490989 No Longer Active Cj SARAH Activ e MOBIC 7.5 MG TABS 1 tablet by mouth twice daily MELOXICAM 65968962085 No Longer Active Marielena Estes APRN Active PREDNISONE 20 MG TAB 3 tabs daily for 3 days, 2 t abs daily for 3 days, 1 tab daily for 3 days, 1/2 tab daily for 3 days PREDN ISONE 28995526097 No Longer Active Eric Hester MD Active PREDNISONE 20 MG TAB 2 tabs daily for 3 days, 1 t ab daily for 3 days, 1/2 tab daily for 2 days PREDNISONE 55195312107 No Longer Active Eric Hester MD Active MOBIC 7.5 MG TABS 1 tablet by mouth twice daily 10/30 MOBIC 7.5 MG TABS 541896 MELOXICAM Inactive AMITRIPTYLINE HCL 25 MG TABS 1 tablet at HS AMITRIPTYLINE HCL 25 MG TABS 749642 AMITRIPTYLINE HCL Inactive TOPAMAX 25 MG TABS 1 qHS x 1 week, then 1 BID x 1 week, then 1 qAM and 2 qHS x 1 week, then 2 BID (migraine prevention) TOPAMAX 2 5 MG TABS 428835 TOPIRAMATE Inactive PREDNISONE 20 MG TAB 2 tabs daily for 3 days, 1 t ab daily for 3 days, 1/2 tab daily for 2 days PREDNISONE 20 MG TAB 263533 PREDNISON E Inactive PREDNISONE 20 MG TAB 3 tabs daily for 3 days, 2 t abs daily for 3 days, 1 tab daily for 3 days, 1/2 tab daily for 3 days PREDNISONE 20 MG TAB 800246 PREDNISONE Inactive Vital Signs Date Name Value [...] Measured Encounters Code Encounter Date Provider Facility CPT-01353 Level 3 Est. Patient 19:07:23 CDT Cj SARAH [facility] CPT-40905 Level 3 Est. 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 CPT-15789 Level 3 Est. Patient 14:52:49 ENVIRONMENTAL STUDIES DEPARTMENT CHAIR Eric muhammad MD [facility] CPT-12114 Level 3 Est. Patient 15:41:51 CDT Eric muhammad MD [facility]
--- OUTSIDE RECORDS SUMMARY | 2020-04-05 22:12 | XMS REPORT | Clinical Summary ---
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 KICK BOXER Insomnia, unspecified Depression 311 Active Marielena Estes [...] 4 times daily PRN Sparingly 03/09 OXYCODONE-ACETAMINOPHEN 45423223201 Active Latha Huertas RPT,RMA Active METOPROLOL SUCCINATE ER 25 MG ORAL [id number] 1 tablet daily for elevated blood pressure and heart rate METOPROLOL SUCCINATE 177520928 10 No Longer Active Ayan Devi DO Active METOPROLOL SUCCINATE 50 MG TB24 1 tablet by mouth daily METOPROLOL SUCCINATE 41087066344 Active Ayan Devi DO Active PROAIR HFA 108 (90 BASE) MCG/ACT AERS 2 puffs four lindsey es a day as needed for wheeze or cough ALBUTEROL SULFATE 64021321524 No Long er Active Ayan Devi DO Active AZITHROMYCIN 250 MG TABS 2 po qd x 1 day, then 1 po qd x 4 days AZITHROMYCIN 85560063731 No Longer Active Ayan Devi DO A ctive TRAMADOL HCL 50 MG ORAL TABS Take 1/2 tab po TID with extra strength tylenol TRAMADOL HCL 94225664154 No Longer Active Ayan Devi DO Active FENTANYL 12 MCG/HR TRANS PT72 Apply two patches to boris an dry skin and change every 3 days. FENTANYL 63392841636 No Longer Active Monica Devi DO Active VENLAFAXINE HCL ER 75 MG ORAL [id number] 1 capsule daily for anxiety/depression VENLAFAXINE HCL 25857559967 Active Ayan Devi DO Active VENLAFAXINE HCL 37.5 MG ORAL TABS Take 1 tab po daily x 7 days then increase to twice daily VENLAFAXINE HCL 45297288804 No Longer Active Ayan Devi DO Active ZOLPIDEM TARTRATE 10 MG ORAL TABS 1 tab PO at hs PRN insomnia 20 03/09/08 ZOLPIDEM TARTRATE 86213042909 No Longer Active Ayan Devi DO Active ALPRAZOLAM 0.5 MG ORAL TABS 1 PO q 8 hrs PRN AL PRAZOLAM 71097055220 No Longer Active Ayan Devi DO Active ESCITALOPRAM OXALATE 10 MG ORAL TABS 1 tab PO daily ESCITALOPRAM OXALATE 59720888412 No Longer Active Cj Grijalva e CITALOPRAM HYDROBROMIDE 20 MG ORAL TABS 1 tablet PO da asha. Do not miss or skip doses. Contact your provider if you intend to discontinue this medication. CITALOPRAM HYDROBROMIDE 77707347432 No Longer Active Kiley Vang LPN Active ALPRAZOLAM 0.5 MG ORAL TABS 1 tablet PO q 8 hrs PRN 03/09/08 ALPRAZOLAM 50761474859 No Longer Active Kiley Vang LPN Active TYLENOL PM EXTRA STRENGTH 1000-50 MG/30ML ORAL LIQD 2 tabs p o at bedtime DIPHENHYDRAMINE-APAP (SLEEP) 79612437389 No Longer Ac tive Kiley Vang LPN Active TOPAMAX 25 MG TABS 1 qHS x 1 week, then 1 BID x 1 week, then 1 qAM and 2 qHS x 1 week, then 2 BID (migraine prevention) TOPIRAMAT E 09625036300 No Longer Active Cj SARAH Active AMITRIPTYLINE HCL 25 MG TABS 1 tablet at HS AMITRIPTYLINE HCL 69231902772 No Longer Active Cj Grijalva e MOBIC 7.5 MG TABS 1 tablet by mouth twice daily MELOXICAM 02151818236 No Longer Active Marielena Estes APRN Active PREDNISONE 20 MG TAB 3 tabs daily for 3 days, 2 t abs daily for 3 days, 1 tab daily for 3 days, 1/2 tab daily for 3 days PREDN ISONE 83247239414 No Longer Active Eric Hester MD Active PREDNISONE 20 MG TAB 2 tabs daily for 3 days, 1 t ab daily for 3 days, 1/2 tab daily for 2 days PREDNISONE 51323707094 No Longer Active Eric Hester MD Active MOBIC 7.5 MG TABS 1 tablet by mouth twice daily 2013/10/30 MOBIC 7.5 MG TABS 438422 MELOXICAM Inactive AMITRIPTYLINE HCL 25 MG TABS 1 tablet at HS AMITRIPTYLINE HCL 25 MG TABS 374973 AMITRIPTYLINE HCL Inactive TOPAMAX 25 MG TABS 1 qHS x 1 week, then 1 BID x 1 week, then 1 qAM and 2 qHS x 1 week, then 2 BID (migraine prevention) TOPAMAX 2 5 MG TABS 041187 TOPIRAMATE Inactive TYLENOL PM EXTRA STRENGTH 1000-50 MG/30ML ORAL LIQD 2 tabs p o at bedtime TYLENOL PM EXTRA STRENGTH 1000-50 MG/30ML ORAL L IQD DIPHENHYDRAMINE-APAP (SLEEP) Inactive ALPRAZOLAM 0.5 MG ORAL TABS 1 tablet PO q 8 hrs PRN 20 03/09/08 ALPRAZOLAM 0.5 MG ORAL TABS 097117 ALPRAZOLAM Inactive CITALOPRAM HYDROBROMIDE 20 MG ORAL TABS 1 tablet PO da asha. Do not miss or skip doses. Contact your provider if you intend to discontinue this medication. CITALOPRAM HYDROBROMIDE 20 MG ORAL TABS 699609 CITALOPRAM HYDROBROMIDE Inactive ALPRAZOLAM 0.5 MG ORAL TABS 1 PO q 8 hrs PRN 1 ALPRAZOLAM 0.5 MG ORAL TABS 105838 ALPRAZOLAM Inactive ZOLPIDEM TARTRATE 10 MG ORAL TABS 1 tab PO at hs PRN insomnia 20 03/09/08 ZOLPIDEM TARTRATE 10 MG ORAL TABS 729071 ZOLPIDEM TARTR ATE Inactive VENLAFAXINE HCL 37.5 MG ORAL TABS Take 1 tab po daily x 7 days then increase to twice daily VENLAFAXINE HCL 37.5 MG ORAL TABS 463484 VENLAFAXINE HCL Inactive FENTANYL 12 MCG/HR TRANS PT72 Apply two patches to boris an dry skin and change every 3 days. FENTANYL 12 MCG/HR TRANS PT72 586064 FENTANYL Inactive TRAMADOL HCL 50 MG ORAL TABS Take 1/2 tab po TID with extra strength tylenol TRAMADOL HCL 50 MG ORAL TABS 816192 TRAMADOL HCL Inactive PROAIR HFA 108 (90 BASE) MCG/ACT AERS 2 puffs four lindsey es a day as needed for wheeze or cough PROAIR HFA 108 (90 BASE) MCG/ACT AERS ALBUTEROL SULFATE Inactive METOPROLOL SUCCINATE ER 25 MG ORAL [id number] 1 tablet daily for elevated blood pressure and heart rate METOPROLOL SUCCI VANDANA ER 25 MG ORAL [id number] METOPROLOL SUCCINATE Inactive PREDNISONE 20 MG TAB 2 tabs daily for 3 days, 1 t ab daily for 3 days, 1/2 tab daily for 2 days PREDNISONE 20 MG TAB 258721 PREDNISON E Inactive PREDNISONE 20 MG TAB 3 tabs daily for 3 days, 2 t abs daily for 3 days, 1 tab daily for 3 days, 1/2 tab daily for 3 days PREDNISONE 20 MG TAB 622612 PREDNISONE Inactive AZITHROMYCIN 250 MG TABS 2 po qd x 1 day, then 1 po qd x 4 days AZITHROMYCIN 250 MG TABS 1188697 AZITHROMYCIN Inactiv e Vital Signs Date Name [...] Panel - Chemistry sodium, serum 141 mmol/L 492-570 4389/06/09 carbon dioxide, venous blood 30.5 mmol/L 21.0-32 [...] Negative;Positive Encounters Code Encounter Date Provider Facility CPT-95173 Level 3 Est. Patient 10:14:46 CDT Ayan goldsmith [facility] CPT-61005 Level 3 Est. Patient 10:38:22 CDT Ayan goldsmith [facility] CPT-93633 Level 4 Est. Patient 09:30:39 CDT Ayan goldsmith [facility] CPT-94512 Level 3 Est. Patient 17:31:00 DIGITAL EXPERIENCE MANAGER Cj Rodriguez [facility] CPT-64813 Level 3 Est. Patient 19:07:23 CDT Cj Rodriguez [facility] CPT-78579 Level 3 Est. Patient 16:45:43 DIGITAL EXPERIENCE MANAGER Marielena Barrett APRN [facility] CPT-68238 Level 3 Est. Patient 14:52:49 DIGITAL EXPERIENCE MANAGER Eric muhammad MD [facility] CPT-61825 Level 3 Est. Patient 15:41:51 CDT Eric muhammad MD [facility] Procedures Code Procedure Name Date Entry Date Standard Desc ription CPT-02501 Chest 2V Frontal and Lat 10:48:26 CDT 01/08
--- OUTSIDE RECORDS SUMMARY | 2020-04-05 22:12 | XMS REPORT | Clinical Summary ---
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 Insomnia, unspecified Depression 311 Active Marielena [...] Generic Name NDC Status Provider Patient Instruction TRAMADOL HCL 50 MG ORAL TABS Take 1/2 tab po TID with extra strength tylenol TRAMADOL HCL 79308552888 Active Raven Wen MA Active METOPROLOL SUCCINATE ER 25 MG ORAL [id number] 1/2 table t daily for elevated blood pressure and heart rate METOPROLOL SUCCINATE 75790870085 A ctive Ayan Devi DO Active VENLAFAXINE HCL ER 75 MG ORAL [id number] 1 capsule daily for anxiety/depression VENLAFAXINE HCL 72916434148 Active Ayan Devi DO Active VENLAFAXINE HCL 37.5 MG ORAL TABS Take 1 tab po daily x 7 days then increase to twice daily VENLAFAXINE HCL 75024504466 No Longer Active Ayan Devi DO Active ZOLPIDEM TARTRATE 10 MG ORAL TABS 1 tab PO at hs PRN insomnia 20 03/09/08 ZOLPIDEM TARTRATE 56198993425 No Longer Active Ayan Devi DO Active ALPRAZOLAM 0.5 MG ORAL TABS 1 PO q 8 hrs PRN AL PRAZOLAM 36777579076 No Longer Active Ayan Devi DO Active ESCITALOPRAM OXALATE 10 MG ORAL TABS 1 tab PO daily ESCITALOPRAM OXALATE 51169627370 No Longer Active Cj SARAH Activ e CITALOPRAM HYDROBROMIDE 20 MG ORAL TABS 1 tablet PO da asha. Do not miss or skip doses. Contact your provider if you intend to discontinue this medication. CITALOPRAM HYDROBROMIDE 44205914254 No Longer Active Kiley Naff ALIGNER Active ALPRAZOLAM 0.5 MG ORAL TABS 1 tablet PO q 8 hrs PRN 20 03/09/08 ALPRAZOLAM 24531585200 No Longer Active Kiley Naff ALIGNER Active TYLENOL PM EXTRA STRENGTH 1000-50 MG/30ML ORAL LIQD 2 tabs p o at bedtime DIPHENHYDRAMINE-APAP (SLEEP) 29477026085 No Longer Ac tive Kiley Naff ALIGNER Active TOPAMAX 25 MG TABS 1 qHS x 1 week, then 1 BID x 1 week, then 1 qAM and 2 qHS x 1 week, then 2 BID (migraine prevention) TOPIRAMAT E 02235737178 No Longer Active Cj SARAH Active AMITRIPTYLINE HCL 25 MG TABS 1 tablet at HS AMITRIPTYLINE HCL 68755848404 No Longer Active Cj SARAH Activ e MOBIC 7.5 MG TABS 1 tablet by mouth twice daily MELOXICAM 27781151880 No Longer Active Marielena Estes APRN Active PREDNISONE 20 MG TAB 3 tabs daily for 3 days, 2 t abs daily for 3 days, 1 tab daily for 3 days, 1/2 tab daily for 3 days PREDN ISONE 39189481447 No Longer Active Eric Hester MD Active PREDNISONE 20 MG TAB 2 tabs daily for 3 days, 1 t ab daily for 3 days, 1/2 tab daily for 2 days PREDNISONE 92413211548 No Longer Active Eric Hester MD Active MOBIC 7.5 MG TABS 1 tablet by mouth twice daily 10/30 MOBIC 7.5 MG TABS 350539 MELOXICAM Inactive AMITRIPTYLINE HCL 25 MG TABS 1 tablet at HS AMITRIPTYLINE HCL 25 MG TABS 115028 AMITRIPTYLINE HCL Inactive TOPAMAX 25 MG TABS 1 qHS x 1 week, then 1 BID x 1 week, then 1 qAM and 2 qHS x 1 week, then 2 BID (migraine prevention) TOPAMAX 2 5 MG TABS 877572 TOPIRAMATE Inactive TYLENOL PM EXTRA STRENGTH 1000-50 MG/30ML ORAL LIQD 2 tabs p o at bedtime TYLENOL PM EXTRA STRENGTH 1000-50 MG/30ML ORAL L IQD DIPHENHYDRAMINE-APAP (SLEEP) Inactive ALPRAZOLAM 0.5 MG ORAL TABS 1 tablet PO q 8 hrs PRN 03/09/08 ALPRAZOLAM 0.5 MG ORAL TABS 083442 ALPRAZOLAM Inactive CITALOPRAM HYDROBROMIDE 20 MG ORAL TABS 1 tablet PO da asha. Do not miss or skip doses. Contact your provider if you intend to discontinue this medication. CITALOPRAM HYDROBROMIDE 20 MG ORAL TABS 271525 CITALOPRAM HYDROBROMIDE Inactive ALPRAZOLAM 0.5 MG ORAL TABS 1 PO q 8 hrs PRN 1 ALPRAZOLAM 0.5 MG ORAL TABS 364230 ALPRAZOLAM Inactive ZOLPIDEM TARTRATE 10 MG ORAL TABS 1 tab PO at hs PRN insomnia 20 03/09/08 ZOLPIDEM TARTRATE 10 MG ORAL TABS 260758 ZOLPIDEM TARTR ATE Inactive VENLAFAXINE HCL 37.5 MG ORAL TABS Take 1 tab po daily x 7 days then increase to twice daily VENLAFAXINE HCL 37.5 MG ORAL TABS 471743 VENLAFAXINE HCL Inactive PREDNISONE 20 MG TAB 2 tabs daily for 3 days, 1 t ab daily for 3 days, 1/2 tab daily for 2 days PREDNISONE 20 MG TAB 487566 PREDNISON E Inactive PREDNISONE 20 MG TAB 3 tabs daily for 3 days, 2 t abs daily for 3 days, 1 tab daily for 3 days, 1/2 tab daily for 3 days PREDNISONE 20 MG TAB 564505 PREDNISONE Inactive Vital Signs Date Name Value [...] Measured Encounters Code Encounter Date Provider Facility CPT-54932 Level 4 Est. Patient 09:30:39 CDT Ayan goldsmith DO [facility] CPT-28130 Level 3 Est. 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 Patient 19:07:23 CDT Cj Rodriguez [facility] CPT-25242 Level 3 Est. Patient 16:45:43 TOBACCO WAREHOUSE AGENT Marielena Barrett APRN [facility] CPT-69016 Level 3 Est. Patient 14:52:49 TOBACCO WAREHOUSE AGENT Eric muhammad MD [facility] CPT-97522 Level 3 Est. Patient 15:41:51 CDT Eric muhammad MD [facility]
--- OUTSIDE RECORDS SUMMARY | 2020-04-05 22:12 | XMS REPORT | Clinical Summary ---
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 Insomnia, unspecified Depression 311 Active Marielena Estes APRN Depressive disorder, not elsewhere classified Hemorrhoids, external 455.3 Active Cj SARAH External hemorrhoids without mention of complication Anxiety 300.00 Active Cj SARAH Anxiety state, unspecified Insomnia 780.52 Active Cj SARAH Insomnia, unspecified Medication List Medication Instructions Start Date Stop Date Generic Name [facility] Status Provider Patient Instruction ZOLPIDEM TARTRATE 10 MG ORAL TABS 1 tab PO at hs PRN insomnia 08/27 ZOLPIDEM TARTRATE 71364265501 Active Cj SARAH Acti ve ALPRAZOLAM 0.5 MG ORAL TABS 1 PO q 8 hrs PRN AL PRAZOLAM 73961609140 Active Cj SARAH Active ESCITALOPRAM OXALATE 10 MG ORAL TABS 1 tab PO daily ESCITALOPRAM OXALATE 57693839941 Active Cj SARAH Active CITALOPRAM HYDROBROMIDE 20 MG ORAL TABS 1 tablet PO da asha. Do not miss or skip doses. Contact your provider if you intend to discontinue this medication. CITALOPRAM HYDROBROMIDE 28853674693 No Longer Active Kiley Vang MANAGED CARE COORDINATOR Active ALPRAZOLAM 0.5 MG ORAL TABS 1 tablet PO q 8 hrs PRN 20 03/09/08 ALPRAZOLAM 19753176793 No Longer Active Kiley Vang MANAGED CARE COORDINATOR Active TYLENOL PM EXTRA STRENGTH 1000-50 MG/30ML ORAL LIQD 2 tabs p o at bedtime DIPHENHYDRAMINE-APAP (SLEEP) 25997461593 No Longer Ac tive Kiley Vang MANAGED CARE COORDINATOR Active TOPAMAX 25 MG TABS 1 qHS x 1 week, then 1 BID x 1 week, then 1 qAM and 2 qHS x 1 week, then 2 BID (migraine prevention) TOPIRAMAT E 11376091090 No Longer Active Cj SARAH Active AMITRIPTYLINE HCL 25 MG TABS 1 tablet at HS AMITRIPTYLINE HCL 45880399609 No Longer Active Cj SARAH Activ e MOBIC 7.5 MG TABS 1 tablet by mouth twice daily MELOXICAM 88746491986 No Longer Active Marielena Estes APRN Active PREDNISONE 20 MG TAB 3 tabs daily for 3 days, 2 t abs daily for 3 days, 1 tab daily for 3 days, 1/2 tab daily for 3 days PREDN ISONE 77337709207 No Longer Active Eric Hester MD Active PREDNISONE 20 MG TAB 2 tabs daily for 3 days, 1 t ab daily for 3 days, 1/2 tab daily for 2 days PREDNISONE 16760407515 No Longer Active Eric Hester MD Active MOBIC 7.5 MG TABS 1 tablet by mouth twice daily 10/30 MOBIC 7.5 MG TABS 934582 MELOXICAM Inactive AMITRIPTYLINE HCL 25 MG TABS 1 tablet at HS AMITRIPTYLINE HCL 25 MG TABS 272123 AMITRIPTYLINE HCL Inactive TOPAMAX 25 MG TABS 1 qHS x 1 week, then 1 BID x 1 week, then 1 qAM and 2 qHS x 1 week, then 2 BID (migraine prevention) TOPAMAX 2 5 MG TABS 536302 TOPIRAMATE Inactive TYLENOL PM EXTRA STRENGTH 1000-50 MG/30ML ORAL LIQD 2 tabs p o at bedtime TYLENOL PM EXTRA STRENGTH 1000-50 MG/30ML ORAL L IQD DIPHENHYDRAMINE-APAP (SLEEP) Inactive ALPRAZOLAM 0.5 MG ORAL TABS 1 tablet PO q 8 hrs PRN 03/09/08 ALPRAZOLAM 0.5 MG ORAL TABS 565742 ALPRAZOLAM Inactive CITALOPRAM HYDROBROMIDE 20 MG ORAL TABS 1 tablet PO da asha. Do not miss or skip doses. Contact your provider if you intend to discontinue this medication. CITALOPRAM HYDROBROMIDE 20 MG ORAL TABS 896012 CITALOPRAM HYDROBROMIDE Inactive PREDNISONE 20 MG TAB 2 tabs daily for 3 days, 1 t ab daily for 3 days, 1/2 tab daily for 2 days PREDNISONE 20 MG TAB 634126 PREDNISON E Inactive PREDNISONE 20 MG TAB 3 tabs daily for 3 days, 2 t abs daily for 3 days, 1 tab daily for 3 days, 1/2 tab daily for 3 days PREDNISONE 20 MG TAB 949370 PREDNISONE Inactive Vital Signs Date Name Value [...] Measured Encounters Code Encounter Date Provider Facility CPT-48972 Level 3 Est. Patient 17:31:00 FILAMENT MAKER Cj Rodriguez [facility] CPT-09067 Level 3 Est. Patient 19:07:23 CDT Cj Rodriguez [facility] CPT-57107 Level 3 Est. Patient 16:45:43 FILAMENT MAKER Marielena Barrett APRN [facility] CPT-09972 Level 3 Est. Patient 14:52:49 FILAMENT MAKER Eric muhammad MD [facility] CPT-08130 Level 3 Est. Patient 15:41:51 CDT Eric muhammad MD [facility]
--- OUTSIDE RECORDS SUMMARY | 2020-04-05 22:12 | XMS REPORT | Clinical Summary ---
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 Insomnia, unspecified Depression 311 Active Marielena Estes [...] 4 times daily PRN Sparingly 03/09 OXYCODONE-ACETAMINOPHEN 80086199067 Active Latha Huertas RPT,RMA Active METOPROLOL SUCCINATE ER 25 MG ORAL [id number] 1 tablet daily for elevated blood pressure and heart rate METOPROLOL SUCCINATE 707655977 10 No Longer Active Ayan Devi DO Active METOPROLOL SUCCINATE 50 MG TB24 1 tablet by mouth daily METOPROLOL SUCCINATE 57753062221 Active Ayan Devi DO Active PROAIR HFA 108 (90 BASE) MCG/ACT AERS 2 puffs four lindsey es a day as needed for wheeze or cough ALBUTEROL SULFATE 56663085662 No Long er Active Ayan Devi DO Active AZITHROMYCIN 250 MG TABS 2 po qd x 1 day, then 1 po qd x 4 days AZITHROMYCIN 99042215390 No Longer Active Ayan Devi DO A ctive TRAMADOL HCL 50 MG ORAL TABS Take 1/2 tab po TID with extra strength tylenol TRAMADOL HCL 73369396854 No Longer Active Ayan Devi DO Active FENTANYL 12 MCG/HR TRANS PT72 Apply two patches to boris an dry skin and change every 3 days. FENTANYL 16204561935 No Longer Active Monica Devi DO Active VENLAFAXINE HCL ER 75 MG ORAL [id number] 1 capsule daily for anxiety/depression VENLAFAXINE HCL 78658583592 Active Ayan Devi DO Active VENLAFAXINE HCL 37.5 MG ORAL TABS Take 1 tab po daily x 7 days then increase to twice daily VENLAFAXINE HCL 94245635883 No Longer Active Ayan Devi DO Active ZOLPIDEM TARTRATE 10 MG ORAL TABS 1 tab PO at hs PRN insomnia 20 03/09/08 ZOLPIDEM TARTRATE 61768044596 No Longer Active Ayan Devi DO Active ALPRAZOLAM 0.5 MG ORAL TABS 1 PO q 8 hrs PRN AL PRAZOLAM 61275828404 No Longer Active Ayan Devi DO Active ESCITALOPRAM OXALATE 10 MG ORAL TABS 1 tab PO daily ESCITALOPRAM OXALATE 99155401385 No Longer Active Cj Grijalva e CITALOPRAM HYDROBROMIDE 20 MG ORAL TABS 1 tablet PO da asha. Do not miss or skip doses. Contact your provider if you intend to discontinue this medication. CITALOPRAM HYDROBROMIDE 75263480108 No Longer Active Kiley Vang LPN Active ALPRAZOLAM 0.5 MG ORAL TABS 1 tablet PO q 8 hrs PRN 03/09/08 ALPRAZOLAM 28623913603 No Longer Active Kiley Vang LPN Active TYLENOL PM EXTRA STRENGTH 1000-50 MG/30ML ORAL LIQD 2 tabs p o at bedtime DIPHENHYDRAMINE-APAP (SLEEP) 09167521018 No Longer Ac tive Kiley Vang LPN Active TOPAMAX 25 MG TABS 1 qHS x 1 week, then 1 BID x 1 week, then 1 qAM and 2 qHS x 1 week, then 2 BID (migraine prevention) TOPIRAMAT E 21902408278 No Longer Active Cj SARAH Active AMITRIPTYLINE HCL 25 MG TABS 1 tablet at HS AMITRIPTYLINE HCL 01622236661 No Longer Active Cj Grijalva e MOBIC 7.5 MG TABS 1 tablet by mouth twice daily MELOXICAM 55800255578 No Longer Active Marielena Estes APRN Active PREDNISONE 20 MG TAB 3 tabs daily for 3 days, 2 t abs daily for 3 days, 1 tab daily for 3 days, 1/2 tab daily for 3 days PREDN ISONE 34972667938 No Longer Active Eric Hester MD Active PREDNISONE 20 MG TAB 2 tabs daily for 3 days, 1 t ab daily for 3 days, 1/2 tab daily for 2 days PREDNISONE 95434968285 No Longer Active Eric Hester MD Active MOBIC 7.5 MG TABS 1 tablet by mouth twice daily 2013/10/30 MOBIC 7.5 MG TABS 139907 MELOXICAM Inactive AMITRIPTYLINE HCL 25 MG TABS 1 tablet at HS AMITRIPTYLINE HCL 25 MG TABS 128093 AMITRIPTYLINE HCL Inactive TOPAMAX 25 MG TABS 1 qHS x 1 week, then 1 BID x 1 week, then 1 qAM and 2 qHS x 1 week, then 2 BID (migraine prevention) TOPAMAX 2 5 MG TABS 335631 TOPIRAMATE Inactive TYLENOL PM EXTRA STRENGTH 1000-50 MG/30ML ORAL LIQD 2 tabs p o at bedtime TYLENOL PM EXTRA STRENGTH 1000-50 MG/30ML ORAL L IQD DIPHENHYDRAMINE-APAP (SLEEP) Inactive ALPRAZOLAM 0.5 MG ORAL TABS 1 tablet PO q 8 hrs PRN 20 03/09/08 ALPRAZOLAM 0.5 MG ORAL TABS 031066 ALPRAZOLAM Inactive CITALOPRAM HYDROBROMIDE 20 MG ORAL TABS 1 tablet PO da asha. Do not miss or skip doses. Contact your provider if you intend to discontinue this medication. CITALOPRAM HYDROBROMIDE 20 MG ORAL TABS 692289 CITALOPRAM HYDROBROMIDE Inactive ALPRAZOLAM 0.5 MG ORAL TABS 1 PO q 8 hrs PRN 1 ALPRAZOLAM 0.5 MG ORAL TABS 028789 ALPRAZOLAM Inactive ZOLPIDEM TARTRATE 10 MG ORAL TABS 1 tab PO at hs PRN insomnia 20 03/09/08 ZOLPIDEM TARTRATE 10 MG ORAL TABS 823739 ZOLPIDEM TARTR ATE Inactive VENLAFAXINE HCL 37.5 MG ORAL TABS Take 1 tab po daily x 7 days then increase to twice daily VENLAFAXINE HCL 37.5 MG ORAL TABS 625504 VENLAFAXINE HCL Inactive FENTANYL 12 MCG/HR TRANS PT72 Apply two patches to boris an dry skin and change every 3 days. FENTANYL 12 MCG/HR TRANS PT72 322498 FENTANYL Inactive TRAMADOL HCL 50 MG ORAL TABS Take 1/2 tab po TID with extra strength tylenol TRAMADOL HCL 50 MG ORAL TABS 025442 TRAMADOL HCL Inactive PROAIR HFA 108 (90 BASE) MCG/ACT AERS 2 puffs four lindsey es a day as needed for wheeze or cough PROAIR HFA 108 (90 BASE) MCG/ACT AERS ALBUTEROL SULFATE Inactive METOPROLOL SUCCINATE ER 25 MG ORAL [id number] 1 tablet daily for elevated blood pressure and heart rate METOPROLOL SUCCI VANDANA ER 25 MG ORAL [id number] METOPROLOL SUCCINATE Inactive PREDNISONE 20 MG TAB 2 tabs daily for 3 days, 1 t ab daily for 3 days, 1/2 tab daily for 2 days PREDNISONE 20 MG TAB 011017 PREDNISON E Inactive PREDNISONE 20 MG TAB 3 tabs daily for 3 days, 2 t abs daily for 3 days, 1 tab daily for 3 days, 1/2 tab daily for 3 days PREDNISONE 20 MG TAB 278214 PREDNISONE Inactive AZITHROMYCIN 250 MG TABS 2 po qd x 1 day, then 1 po qd x 4 days AZITHROMYCIN 250 MG TABS 3061717 AZITHROMYCIN Inactiv e Vital Signs Date Name [...] Panel - Chemistry sodium, serum 141 mmol/L 236-091 1810/06/09 carbon dioxide, venous blood 30.5 mmol/L 21.0-32 [...] Negative;Positive Encounters Code Encounter Date Provider Facility CPT-53555 Level 3 Est. Patient 10:14:46 CDT Ayan goldsmith [facility] CPT-54325 Level 3 Est. Patient 10:38:22 CDT Ayan goldsmith [facility] CPT-67150 Level 4 Est. Patient 09:30:39 CDT Ayan goldsmith [facility] CPT-11431 Level 3 Est. Patient 17:31:00 CIVIL ENGINEER'S AIDE Cj Rodriguez [facility] CPT-69876 Level 3 Est. Patient 19:07:23 CDT Cj Rodriguez [facility] CPT-02272 Level 3 Est. Patient 16:45:43 CIVIL ENGINEER'S AIDE Marielena Barrett APRN [facility] CPT-87020 Level 3 Est. Patient 14:52:49 CIVIL ENGINEER'S AIDE Eric muhammad MD [facility] CPT-47286 Level 3 Est. Patient 15:41:51 CDT Eric muhammad MD [facility] Procedures Code Procedure Name Date Entry Date Standard Desc ription CPT-88378 Chest 2V Frontal and Lat 10:48:26 CDT 01/08
--- OUTSIDE RECORDS SUMMARY | 2020-04-05 22:12 | XMS REPORT | Clinical Summary ---
Author Author Admin, Esequiel Vo Organization [facility] Address Unknown Phone Unavailable Allergies, Adverse Reactions, Alerts Allergy Name Reaction Description Start Date Severity Status Pr ovider No Known Allergies [facility] Conditions or Problems Problem Name Problem Code Onset Date Status Entry Date Provider Comment Standard Description Annotate LOW BACK PAIN SYNDROME 724.2 Active Eric rutherford MD Lumbago Migraine headache 346.90 Active Marielena Samano PRN Migraine, unspecified, without mention of intractable migraine, without mention of status migrainosus Insomnia 780.52 Active 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 Do not miss or skip doses. Contact your provider if you intend to discontinue this medication. CITALOPRAM HYDROBROMIDE 03953466722 Active Cj SARAH Active TYLENOL PM EXTRA STRENGTH 1000-50 MG/30ML ORAL LIQD 2 tabs p o at bedtime DIPHENHYDRAMINE-APAP (SLEEP) 44109800723 Active Cj SARAH Active TOPAMAX 25 MG TABS 1 qHS x 1 week, then 1 BID x 1 week, then 1 qAM and 2 qHS x 1 week, then 2 BID (migraine prevention) TOPIRAMAT E 14935270034 No Longer Active Cj SARAH Active AMITRIPTYLINE HCL 25 MG TABS 1 tablet at HS AMITRIPTYLINE HCL 23148486879 No Longer Active Cj SARAH Activ e MOBIC 7.5 MG TABS 1 tablet by mouth twice daily MELOXICAM 82612654895 No Longer Active Marielena Estes APRN Active PREDNISONE 20 MG TAB 3 tabs daily for 3 days, 2 t abs daily for 3 days, 1 tab daily for 3 days, 1/2 tab daily for 3 days PREDN ISONE 04786355321 No Longer Active Eric Hester MD Active PREDNISONE 20 MG TAB 2 tabs daily for 3 days, 1 t ab daily for 3 days, 1/2 tab daily for 2 days PREDNISONE 92904144453 No Longer Active Eric Hester MD Active AMITRIPTYLINE HCL 25 MG TABS 1 tablet at HS AMITRIPTYLINE HCL 25 MG TABS 244263 AMITRIPTYLINE HCL Inactive PREDNISONE 20 MG TAB 2 tabs daily for 3 days, 1 t ab daily for 3 days, 1/2 tab daily for 2 days PREDNISONE 20 MG TAB 445446 PREDNISON E Inactive PREDNISONE 20 MG TAB 3 tabs daily for 3 days, 2 t abs daily for 3 days, 1 tab daily for 3 days, 1/2 tab daily for 3 days PREDNISONE 20 MG TAB 424943 PREDNISONE Inactive TOPAMAX 25 MG TABS 1 qHS x 1 week, then 1 BID x 1 week, then 1 qAM and 2 qHS x 1 week, then 2 BID (migraine prevention) TOPAMAX 2 5 MG TABS 006992 TOPIRAMATE Inactive MOBIC 7.5 MG TABS 1 tablet by mouth twice daily 10/30 MOBIC 7.5 MG TABS 484640 MELOXICAM Inactive Vital Signs Date Name Value Unit [...] Measured Encounters Code Encounter Date Provider Facility CPT-23496 Level 3 Est. Patient 19:07:23 CDT Cj SARAH [facility] CPT-83397 Level 3 Est. Patient 16:45:43 JOURNALISM INSTRUCTOR Marielena Barrett APRN [facility] CPT-56218 Level 3 Est. Patient 14:52:49 JOURNALISM INSTRUCTOR Eric muhammad MD [facility] CPT-92606 Level 3 Est. Patient 15:41:51 CDT Eric muhammad MD [facility]
--- OUTSIDE RECORDS SUMMARY | 2020-04-05 22:12 | XMS REPORT | Clinical Summary ---
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 Insomnia, unspecified Depression 311 Active Marielena Estes [...] needed for wheeze or cough ALBUTEROL SULFATE 62405246175 Active B lebron Devi DO Active METOPROLOL SUCCINATE ER 25 MG ORAL [id number] 1 tablet daily for elevated blood pressure and heart rate METOPROLOL SUCCINATE 26639324573 A ctive Ayan Devi DO Active AZITHROMYCIN 250 MG TABS 2 po qd x 1 day, then 1 po qd x 4 days AZITHROMYCIN 90685403816 Active Ayan Devi DO Active TRAMADOL HCL 50 MG ORAL TABS Take 1/2 tab po TID with extra strength tylenol TRAMADOL HCL 08854010879 No Longer Active Ayan Devi DO Active FENTANYL 12 MCG/HR TRANS PT72 Apply two patches to boris an dry skin and change every 3 days. FENTANYL 95609496906 No Longer Active Monica Devi DO Active VENLAFAXINE HCL ER 75 MG ORAL [id number] 1 capsule daily for anxiety/depression VENLAFAXINE HCL 78657601576 Active Ayan Devi DO Active VENLAFAXINE HCL 37.5 MG ORAL TABS Take 1 tab po daily x 7 days then increase to twice daily VENLAFAXINE HCL 27649259019 No Longer Active Ayan Devi DO Active ZOLPIDEM TARTRATE 10 MG ORAL TABS 1 tab PO at hs PRN insomnia 20 03/09/08 ZOLPIDEM TARTRATE 12014605077 No Longer Active Ayan Devi DO Active ALPRAZOLAM 0.5 MG ORAL TABS 1 PO q 8 hrs PRN AL PRAZOLAM 26925779231 No Longer Active Ayan Devi DO Active ESCITALOPRAM OXALATE 10 MG ORAL TABS 1 tab PO daily ESCITALOPRAM OXALATE 23335699569 No Longer Active Cj Valencia CITALOPRAM HYDROBROMIDE 20 MG ORAL TABS 1 tablet PO da asha. Do not miss or skip doses. Contact your provider if you intend to discontinue this medication. CITALOPRAM HYDROBROMIDE 82589960933 No Longer Active Kiley Naff CELL TESTER Active ALPRAZOLAM 0.5 MG ORAL TABS 1 tablet PO q 8 hrs PRN 03/09/08 ALPRAZOLAM 98449350420 No Longer Active Kiley Vang CELL TESTER Active TYLENOL PM EXTRA STRENGTH 1000-50 MG/30ML ORAL LIQD 2 tabs p o at bedtime DIPHENHYDRAMINE-APAP (SLEEP) 11242836171 No Longer Ac tive Kiley Vang CELL TESTER Active TOPAMAX 25 MG TABS 1 qHS x 1 week, then 1 BID x 1 week, then 1 qAM and 2 qHS x 1 week, then 2 BID (migraine prevention) TOPIRAMAT E 59517576335 No Longer Active Cj SARAH Active AMITRIPTYLINE HCL 25 MG TABS 1 tablet at HS AMITRIPTYLINE HCL 96564618774 No Longer Active Cj SARAH Activ e MOBIC 7.5 MG TABS 1 tablet by mouth twice daily MELOXICAM 04741163215 No Longer Active Marielena Estes APRN Active PREDNISONE 20 MG TAB 3 tabs daily for 3 days, 2 t abs daily for 3 days, 1 tab daily for 3 days, 1/2 tab daily for 3 days PREDN ISONE 15044750309 No Longer Active Eric Hester MD Active PREDNISONE 20 MG TAB 2 tabs daily for 3 days, 1 t ab daily for 3 days, 1/2 tab daily for 2 days PREDNISONE 99128915786 No Longer Active Eric Hester MD Active MOBIC 7.5 MG TABS 1 tablet by mouth twice daily 10/30 MOBIC 7.5 MG TABS 295098 MELOXICAM Inactive AMITRIPTYLINE HCL 25 MG TABS 1 tablet at HS AMITRIPTYLINE HCL 25 MG TABS 926694 AMITRIPTYLINE HCL Inactive TOPAMAX 25 MG TABS 1 qHS x 1 week, then 1 BID x 1 week, then 1 qAM and 2 qHS x 1 week, then 2 BID (migraine prevention) TOPAMAX 2 5 MG TABS 509453 TOPIRAMATE Inactive TYLENOL PM EXTRA STRENGTH 1000-50 MG/30ML ORAL LIQD 2 tabs p o at bedtime TYLENOL PM EXTRA STRENGTH 1000-50 MG/30ML ORAL L IQD DIPHENHYDRAMINE-APAP (SLEEP) Inactive ALPRAZOLAM 0.5 MG ORAL TABS 1 tablet PO q 8 hrs PRN 20 03/09/08 ALPRAZOLAM 0.5 MG ORAL TABS 693091 ALPRAZOLAM Inactive CITALOPRAM HYDROBROMIDE 20 MG ORAL TABS 1 tablet PO da asha. Do not miss or skip doses. Contact your provider if you intend to discontinue this medication. CITALOPRAM HYDROBROMIDE 20 MG ORAL TABS 934037 CITALOPRAM HYDROBROMIDE Inactive ALPRAZOLAM 0.5 MG ORAL TABS 1 PO q 8 hrs PRN 1 ALPRAZOLAM 0.5 MG ORAL TABS 388997 ALPRAZOLAM Inactive ZOLPIDEM TARTRATE 10 MG ORAL TABS 1 tab PO at hs PRN insomnia 20 03/09/08 ZOLPIDEM TARTRATE 10 MG ORAL TABS 752372 ZOLPIDEM TARTR ATE Inactive VENLAFAXINE HCL 37.5 MG ORAL TABS Take 1 tab po daily x 7 days then increase to twice daily VENLAFAXINE HCL 37.5 MG ORAL TABS 963631 VENLAFAXINE HCL Inactive FENTANYL 12 MCG/HR TRANS PT72 Apply two patches to boris an dry skin and change every 3 days. FENTANYL 12 MCG/HR TRANS PT72 254653 FENTANYL Inactive TRAMADOL HCL 50 MG ORAL TABS Take 1/2 tab po TID with extra strength tylenol TRAMADOL HCL 50 MG ORAL TABS 513929 TRAMADOL HCL Inactive PREDNISONE 20 MG TAB 2 tabs daily for 3 days, 1 t ab daily for 3 days, 1/2 tab daily for 2 days PREDNISONE 20 MG TAB 929602 PREDNISON E Inactive PREDNISONE 20 MG TAB 3 tabs daily for 3 days, 2 t abs daily for 3 days, 1 tab daily for 3 days, 1/2 tab daily for 3 days PREDNISONE 20 MG TAB 745816 PREDNISONE Inactive Vital Signs Date Name Value [...] Negative;Positive Encounters Code Encounter Date Provider Facility CPT-24650 Level 3 Est. Patient 10:38:22 CDT Ayan goldsmith [facility] CPT-82855 Level 4 Est. Patient 09:30:39 CDT Ayan goldsmith [facility] CPT-93428 Level 3 Est. Patient 17:31:00 ASPHALT PAVER Cj Rodriguez [facility] CPT-27899 Level 3 Est. Patient 19:07:23 CDT Cj Rodriguez [facility] CPT-50917 Level 3 Est. Patient 16:45:43 ASPHALT PAVER Marielena Barrett APRN [facility] CPT-41588 Level 3 Est. Patient 14:52:49 ASPHALT PAVER Eric muhammad MD [facility] CPT-18736 Level 3 Est. Patient 15:41:51 CDT Eric muhammad MD [facility] Procedures Code Procedure Name Date Entry Date Standard Desc ription CPT-31869 Chest 2V Frontal and Lat 10:48:26 CDT 01/08
--- OUTSIDE RECORDS SUMMARY | 2020-04-05 22:13 | XMS REPORT | Clinical Summary ---
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 Insomnia, unspecified Depression 311 Active Marielena Estes [...] 4 times daily PRN Sparingly 03/09 OXYCODONE-ACETAMINOPHEN 29943255984 Active Latha Huertas RPT,RMA Active METOPROLOL SUCCINATE ER 25 MG ORAL [id number] 1 tablet daily for elevated blood pressure and heart rate METOPROLOL SUCCINATE 424455884 10 No Longer Active Ayan Devi DO Active METOPROLOL SUCCINATE 50 MG TB24 1 tablet by mouth daily METOPROLOL SUCCINATE 00458213930 Active Ayan Devi DO Active PROAIR HFA 108 (90 BASE) MCG/ACT AERS 2 puffs four lindsey es a day as needed for wheeze or cough ALBUTEROL SULFATE 54064558371 No Long er Active Ayan Devi DO Active AZITHROMYCIN 250 MG TABS 2 po qd x 1 day, then 1 po qd x 4 days AZITHROMYCIN 15005196762 No Longer Active Ayan Devi DO A ctive TRAMADOL HCL 50 MG ORAL TABS Take 1/2 tab po TID with extra strength tylenol TRAMADOL HCL 75232822685 No Longer Active Ayan Devi DO Active FENTANYL 12 MCG/HR TRANS PT72 Apply two patches to boris an dry skin and change every 3 days. FENTANYL 26398067461 No Longer Active Monica Devi DO Active VENLAFAXINE HCL ER 75 MG ORAL [id number] 1 capsule daily for anxiety/depression VENLAFAXINE HCL 19600028867 Active Ayan Devi DO Active VENLAFAXINE HCL 37.5 MG ORAL TABS Take 1 tab po daily x 7 days then increase to twice daily VENLAFAXINE HCL 38987016885 No Longer Active Ayan Devi DO Active ZOLPIDEM TARTRATE 10 MG ORAL TABS 1 tab PO at hs PRN insomnia 20 03/09/08 ZOLPIDEM TARTRATE 30766598062 No Longer Active Ayan Devi DO Active ALPRAZOLAM 0.5 MG ORAL TABS 1 PO q 8 hrs PRN AL PRAZOLAM 30385105565 No Longer Active Ayan Devi DO Active ESCITALOPRAM OXALATE 10 MG ORAL TABS 1 tab PO daily ESCITALOPRAM OXALATE 60899866530 No Longer Active Cj Grijalva e CITALOPRAM HYDROBROMIDE 20 MG ORAL TABS 1 tablet PO da asha. Do not miss or skip doses. Contact your provider if you intend to discontinue this medication. CITALOPRAM HYDROBROMIDE 61460038412 No Longer Active Kiley Vang LPN Active ALPRAZOLAM 0.5 MG ORAL TABS 1 tablet PO q 8 hrs PRN 03/09/08 ALPRAZOLAM 36054405914 No Longer Active Kiley Vang LPN Active TYLENOL PM EXTRA STRENGTH 1000-50 MG/30ML ORAL LIQD 2 tabs p o at bedtime DIPHENHYDRAMINE-APAP (SLEEP) 25875417292 No Longer Ac tive Kiley Vang LPN Active TOPAMAX 25 MG TABS 1 qHS x 1 week, then 1 BID x 1 week, then 1 qAM and 2 qHS x 1 week, then 2 BID (migraine prevention) TOPIRAMAT E 25089437507 No Longer Active Cj SARAH Active AMITRIPTYLINE HCL 25 MG TABS 1 tablet at HS AMITRIPTYLINE HCL 05705325988 No Longer Active Cj Grijalva e MOBIC 7.5 MG TABS 1 tablet by mouth twice daily MELOXICAM 42206420466 No Longer Active Marielena Estes APRN Active PREDNISONE 20 MG TAB 3 tabs daily for 3 days, 2 t abs daily for 3 days, 1 tab daily for 3 days, 1/2 tab daily for 3 days PREDN ISONE 86606184153 No Longer Active Eric Hester MD Active PREDNISONE 20 MG TAB 2 tabs daily for 3 days, 1 t ab daily for 3 days, 1/2 tab daily for 2 days PREDNISONE 82799554176 No Longer Active Eric Hester MD Active MOBIC 7.5 MG TABS 1 tablet by mouth twice daily 2013/10/30 MOBIC 7.5 MG TABS 423167 MELOXICAM Inactive AMITRIPTYLINE HCL 25 MG TABS 1 tablet at HS AMITRIPTYLINE HCL 25 MG TABS 108582 AMITRIPTYLINE HCL Inactive TOPAMAX 25 MG TABS 1 qHS x 1 week, then 1 BID x 1 week, then 1 qAM and 2 qHS x 1 week, then 2 BID (migraine prevention) TOPAMAX 2 5 MG TABS 409078 TOPIRAMATE Inactive TYLENOL PM EXTRA STRENGTH 1000-50 MG/30ML ORAL LIQD 2 tabs p o at bedtime TYLENOL PM EXTRA STRENGTH 1000-50 MG/30ML ORAL L IQD DIPHENHYDRAMINE-APAP (SLEEP) Inactive ALPRAZOLAM 0.5 MG ORAL TABS 1 tablet PO q 8 hrs PRN 20 03/09/08 ALPRAZOLAM 0.5 MG ORAL TABS 405314 ALPRAZOLAM Inactive CITALOPRAM HYDROBROMIDE 20 MG ORAL TABS 1 tablet PO da asha. Do not miss or skip doses. Contact your provider if you intend to discontinue this medication. CITALOPRAM HYDROBROMIDE 20 MG ORAL TABS 763695 CITALOPRAM HYDROBROMIDE Inactive ALPRAZOLAM 0.5 MG ORAL TABS 1 PO q 8 hrs PRN 1 ALPRAZOLAM 0.5 MG ORAL TABS 534127 ALPRAZOLAM Inactive ZOLPIDEM TARTRATE 10 MG ORAL TABS 1 tab PO at hs PRN insomnia 20 03/09/08 ZOLPIDEM TARTRATE 10 MG ORAL TABS 785515 ZOLPIDEM TARTR ATE Inactive VENLAFAXINE HCL 37.5 MG ORAL TABS Take 1 tab po daily x 7 days then increase to twice daily VENLAFAXINE HCL 37.5 MG ORAL TABS 148331 VENLAFAXINE HCL Inactive FENTANYL 12 MCG/HR TRANS PT72 Apply two patches to boris an dry skin and change every 3 days. FENTANYL 12 MCG/HR TRANS PT72 541275 FENTANYL Inactive TRAMADOL HCL 50 MG ORAL TABS Take 1/2 tab po TID with extra strength tylenol TRAMADOL HCL 50 MG ORAL TABS 112572 TRAMADOL HCL Inactive PROAIR HFA 108 (90 BASE) MCG/ACT AERS 2 puffs four lindsey es a day as needed for wheeze or cough PROAIR HFA 108 (90 BASE) MCG/ACT AERS ALBUTEROL SULFATE Inactive METOPROLOL SUCCINATE ER 25 MG ORAL [id number] 1 tablet daily for elevated blood pressure and heart rate METOPROLOL SUCCI VANDANA ER 25 MG ORAL [id number] METOPROLOL SUCCINATE Inactive PREDNISONE 20 MG TAB 2 tabs daily for 3 days, 1 t ab daily for 3 days, 1/2 tab daily for 2 days PREDNISONE 20 MG TAB 432258 PREDNISON E Inactive PREDNISONE 20 MG TAB 3 tabs daily for 3 days, 2 t abs daily for 3 days, 1 tab daily for 3 days, 1/2 tab daily for 3 days PREDNISONE 20 MG TAB 800056 PREDNISONE Inactive AZITHROMYCIN 250 MG TABS 2 po qd x 1 day, then 1 po qd x 4 days AZITHROMYCIN 250 MG TABS 0164937 AZITHROMYCIN Inactiv e Vital Signs Date Name [...] Panel - Chemistry sodium, serum 141 mmol/L 280-488 9529/06/09 carbon dioxide, venous blood 30.5 mmol/L 21.0-32 [...] Negative;Positive Encounters Code Encounter Date Provider Facility CPT-47338 Level 3 Est. Patient 10:14:46 CDT Ayan goldsmith [facility] CPT-24710 Level 3 Est. Patient 10:38:22 CDT Ayan goldsmith [facility] CPT-69488 Level 4 Est. Patient 09:30:39 CDT Ayan goldsmith [facility] CPT-41314 Level 3 Est. Patient 17:31:00 LEADITE HEATER Cj Rodriguez [facility] CPT-15623 Level 3 Est. Patient 19:07:23 CDT Cj Rodriguez [facility] CPT-39398 Level 3 Est. Patient 16:45:43 LEADITE HEATER Marielena Barrett APRN [facility] CPT-69206 Level 3 Est. Patient 14:52:49 LEADITE HEATER Eric muhammad MD [facility] CPT-84877 Level 3 Est. Patient 15:41:51 CDT Eric muhammad MD [facility] Procedures Code Procedure Name Date Entry Date Standard Desc ription CPT-88747 Chest 2V Frontal and Lat 10:48:26 CDT 01/08
--- OUTSIDE RECORDS SUMMARY | 2020-04-05 22:13 | XMS REPORT | Clinical Summary ---
Author Author Admin, Esequiel Vo Organization [employer] Address Unknown Phone Unavailable Allergies, Adverse Reactions, [...] Instruction METOPROLOL SUCCINATE ER 25 MG ORAL [id number] 1/2 table t daily for elevated blood pressure and heart rate METOPROLOL SUCCINATE 88856696733 A ctive Ayan Devi DO Active VENLAFAXINE HCL ER 75 MG ORAL [id number] 1 capsule daily for anxiety/depression VENLAFAXINE HCL 25859755055 Active Ayan Devi DO Active VENLAFAXINE HCL 37.5 MG ORAL TABS Take 1 tab po daily x 7 days then increase to twice daily VENLAFAXINE HCL 45210464912 No Longer Active Ayan Devi DO Active ZOLPIDEM TARTRATE 10 MG ORAL TABS 1 tab PO at hs PRN insomnia 20 03/09/08 ZOLPIDEM TARTRATE 29048019185 No Longer Active Ayan Devi DO Active ALPRAZOLAM 0.5 MG ORAL TABS 1 PO q 8 hrs PRN AL PRAZOLAM 29385221661 No Longer Active Ayan Devi DO Active ESCITALOPRAM OXALATE 10 MG ORAL TABS 1 tab PO daily ESCITALOPRAM OXALATE 88387132301 No Longer Active Cj SARAH Activ e CITALOPRAM HYDROBROMIDE 20 MG ORAL TABS 1 tablet PO da asha. Do not miss or skip doses. Contact your provider if you intend to discontinue this medication. CITALOPRAM HYDROBROMIDE 21193076738 No Longer Active Kiley Naff DISPATCHER [employer]UGB[employer] Active ALPRAZOLAM 0.5 MG ORAL TABS 1 tablet PO q 8 hrs PRN 20 03/09/08 ALPRAZOLAM 69129267894 No Longer Active Kiley Naff DISPATCHER [employer]GB[employer] Active TYLENOL PM EXTRA STRENGTH 1000-50 MG/30ML ORAL LIQD 2 tabs p o at bedtime DIPHENHYDRAMINE-APAP (SLEEP) 97071712826 No Longer Ac tive Kiley Naff DISPATCHER [employer]GB[employer] Active TOPAMAX 25 MG TABS 1 qHS x 1 week, then 1 BID x 1 week, then 1 qAM and 2 qHS x 1 week, then 2 BID (migraine prevention) TOPIRAMAT E 67819656391 No Longer Active Cj SARAH Active AMITRIPTYLINE HCL 25 MG TABS 1 tablet at HS AMITRIPTYLINE HCL 59424597893 No Longer Active Cj SARAH Activ e MOBIC 7.5 MG TABS 1 tablet by mouth twice daily MELOXICAM 42005584499 No Longer Active Marielena Estes APRN Active PREDNISONE 20 MG TAB 3 tabs daily for 3 days, 2 t abs daily for 3 days, 1 tab daily for 3 days, 1/2 tab daily for 3 days PREDN ISONE 27375444460 No Longer Active Eric Hester MD Active PREDNISONE 20 MG TAB 2 tabs daily for 3 days, 1 t ab daily for 3 days, 1/2 tab daily for 2 days PREDNISONE 27847567146 No Longer Active Eric Hester MD Active MOBIC 7.5 MG TABS 1 tablet by mouth twice daily 10/30 MOBIC 7.5 MG TABS 532388 MELOXICAM Inactive AMITRIPTYLINE HCL 25 MG TABS 1 tablet at HS AMITRIPTYLINE HCL 25 MG TABS 972935 AMITRIPTYLINE HCL Inactive TOPAMAX 25 MG TABS 1 qHS x 1 week, then 1 BID x 1 week, then 1 qAM and 2 qHS x 1 week, then 2 BID (migraine prevention) TOPAMAX 2 5 MG TABS 954710 TOPIRAMATE Inactive TYLENOL PM EXTRA STRENGTH 1000-50 MG/30ML ORAL LIQD 2 tabs p o at bedtime TYLENOL PM EXTRA STRENGTH 1000-50 MG/30ML ORAL L IQD DIPHENHYDRAMINE-APAP (SLEEP) Inactive ALPRAZOLAM 0.5 MG ORAL TABS 1 tablet PO q 8 hrs PRN 03/09/08 ALPRAZOLAM 0.5 MG ORAL TABS 872578 ALPRAZOLAM Inactive CITALOPRAM HYDROBROMIDE 20 MG ORAL TABS 1 tablet PO da asha. Do not miss or skip doses. Contact your provider if you intend to discontinue this medication. CITALOPRAM HYDROBROMIDE 20 MG ORAL TABS 012483 CITALOPRAM HYDROBROMIDE Inactive ALPRAZOLAM 0.5 MG ORAL TABS 1 PO q 8 hrs PRN 1 ALPRAZOLAM 0.5 MG ORAL TABS 377720 ALPRAZOLAM Inactive ZOLPIDEM TARTRATE 10 MG ORAL TABS 1 tab PO at hs PRN insomnia 20 03/09/08 ZOLPIDEM TARTRATE 10 MG ORAL TABS 051167 ZOLPIDEM TARTR ATE Inactive VENLAFAXINE HCL 37.5 MG ORAL TABS Take 1 tab po daily x 7 days then increase to twice daily VENLAFAXINE HCL 37.5 MG ORAL TABS 385003 VENLAFAXINE HCL Inactive PREDNISONE 20 MG TAB 2 tabs daily for 3 days, 1 t ab daily for 3 days, 1/2 tab daily for 2 days PREDNISONE 20 MG TAB 392666 PREDNISON E Inactive PREDNISONE 20 MG TAB 3 tabs daily for 3 days, 2 t abs daily for 3 days, 1 tab daily for 3 days, 1/2 tab daily for 3 days PREDNISONE 20 MG TAB 863493 PREDNISONE Inactive Vital Signs Date Name Value [...] Measured Encounters Code Encounter Date Provider Facility CPT-02537 Level 4 Est. Patient 09:30:39 CDT Ayan goldsmith DO [facility] CPT-66643 Level 3 Est. Patient 17:31:00 ICT DEVELOPER Cj Rodriguez [facility] CPT-80976 Level 3 Est. Patient 19:07:23 CDT Cj Rodriguez [facility] CPT-57208 Level 3 Est. Patient 16:45:43 ICT DEVELOPER Marielena Barrett APRN [facility] CPT-42681 Level 3 Est. Patient 14:52:49 ICT DEVELOPER Eric muhammad MD [facility] CPT-76368 Level 3 Est. Patient 15:41:51 CDT Eric muhammad MD [facility]
--- OUTSIDE RECORDS SUMMARY | 2020-04-05 22:13 | XMS REPORT | Clinical Summary ---
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 Insomnia, unspecified Depression 311 Active Marielena Estes [...] needed for wheeze or cough ALBUTEROL SULFATE 79633990420 Active B lebron Devi DO Active METOPROLOL SUCCINATE ER 25 MG ORAL [id number] 1 tablet daily for elevated blood pressure and heart rate METOPROLOL SUCCINATE 35356427161 A ctive Ayan Devi DO Active AZITHROMYCIN 250 MG TABS 2 po qd x 1 day, then 1 po qd x 4 days AZITHROMYCIN 07471620827 Active Ayan Devi DO Active TRAMADOL HCL 50 MG ORAL TABS Take 1/2 tab po TID with extra strength tylenol TRAMADOL HCL 63382797460 No Longer Active Ayan Devi DO Active FENTANYL 12 MCG/HR TRANS PT72 Apply two patches to boris an dry skin and change every 3 days. FENTANYL 16311235573 No Longer Active Monica Devi DO Active VENLAFAXINE HCL ER 75 MG ORAL [id number] 1 capsule daily for anxiety/depression VENLAFAXINE HCL 68769674831 Active Ayan Devi DO Active VENLAFAXINE HCL 37.5 MG ORAL TABS Take 1 tab po daily x 7 days then increase to twice daily VENLAFAXINE HCL 99748188686 No Longer Active Ayan Devi DO Active ZOLPIDEM TARTRATE 10 MG ORAL TABS 1 tab PO at hs PRN insomnia 20 03/09/08 ZOLPIDEM TARTRATE 10458369507 No Longer Active Ayan Devi DO Active ALPRAZOLAM 0.5 MG ORAL TABS 1 PO q 8 hrs PRN AL PRAZOLAM 78886604753 No Longer Active Ayan Devi DO Active ESCITALOPRAM OXALATE 10 MG ORAL TABS 1 tab PO daily ESCITALOPRAM OXALATE 94913550082 No Longer Active Cj Valencia CITALOPRAM HYDROBROMIDE 20 MG ORAL TABS 1 tablet PO da asha. Do not miss or skip doses. Contact your provider if you intend to discontinue this medication. 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5 MG TABS 1 tablet by mouth twice daily MELOXICAM 04001423498 No Longer Active Marielena Estes APRN Active PREDNISONE 20 MG TAB 3 tabs daily for 3 days, 2 t abs daily for 3 days, 1 tab daily for 3 days, 1/2 tab daily for 3 days PREDN ISONE 48840263128 No Longer Active Eric Hester MD Active PREDNISONE 20 MG TAB 2 tabs daily for 3 days, 1 t ab daily for 3 days, 1/2 tab daily for 2 days PREDNISONE 54768462260 No Longer Active Eric Hester MD Active MOBIC 7.5 MG TABS 1 tablet by mouth twice daily 10/30 MOBIC 7.5 MG TABS 840335 MELOXICAM Inactive AMITRIPTYLINE HCL 25 MG TABS 1 tablet at HS AMITRIPTYLINE HCL 25 MG TABS 454196 AMITRIPTYLINE HCL Inactive TOPAMAX 25 MG TABS 1 qHS x 1 week, then 1 BID x 1 week, then 1 qAM and 2 qHS x 1 week, then 2 BID (migraine prevention) TOPAMAX 2 5 MG TABS 587294 TOPIRAMATE Inactive TYLENOL PM EXTRA STRENGTH 1000-50 MG/30ML ORAL LIQD 2 tabs p o at bedtime TYLENOL PM EXTRA STRENGTH 1000-50 MG/30ML ORAL L IQD DIPHENHYDRAMINE-APAP (SLEEP) Inactive ALPRAZOLAM 0.5 MG ORAL TABS 1 tablet PO q 8 hrs PRN 20 03/09/08 ALPRAZOLAM 0.5 MG ORAL TABS 805672 ALPRAZOLAM Inactive CITALOPRAM HYDROBROMIDE 20 MG ORAL TABS 1 tablet PO da asha. Do not miss or skip doses. Contact your provider if you intend to discontinue this medication. CITALOPRAM HYDROBROMIDE 20 MG ORAL TABS 270304 CITALOPRAM HYDROBROMIDE Inactive ALPRAZOLAM 0.5 MG ORAL TABS 1 PO q 8 hrs PRN 1 ALPRAZOLAM 0.5 MG ORAL TABS 166214 ALPRAZOLAM Inactive ZOLPIDEM TARTRATE 10 MG ORAL TABS 1 tab PO at hs PRN insomnia 20 03/09/08 ZOLPIDEM TARTRATE 10 MG ORAL TABS 753006 ZOLPIDEM TARTR ATE Inactive VENLAFAXINE HCL 37.5 MG ORAL TABS Take 1 tab po daily x 7 days then increase to twice daily VENLAFAXINE HCL 37.5 MG ORAL TABS 535373 VENLAFAXINE HCL Inactive FENTANYL 12 MCG/HR TRANS PT72 Apply two patches to boris an dry skin and change every 3 days. FENTANYL 12 MCG/HR TRANS PT72 487517 FENTANYL Inactive TRAMADOL HCL 50 MG ORAL TABS Take 1/2 tab po TID with extra strength tylenol TRAMADOL HCL 50 MG ORAL TABS 333096 TRAMADOL HCL Inactive PREDNISONE 20 MG TAB 2 tabs daily for 3 days, 1 t ab daily for 3 days, 1/2 tab daily for 2 days PREDNISONE 20 MG TAB 867613 PREDNISON E Inactive PREDNISONE 20 MG TAB 3 tabs daily for 3 days, 2 t abs daily for 3 days, 1 tab daily for 3 days, 1/2 tab daily for 3 days PREDNISONE 20 MG TAB 955722 PREDNISONE Inactive Vital Signs Date Name Value [...] Negative;Positive Encounters Code Encounter Date Provider Facility CPT-92949 Level 3 Est. Patient 10:38:22 CDT Ayan goldsmith [facility] CPT-82038 Level 4 Est. Patient 09:30:39 CDT Ayan goldsmith [facility] CPT-74154 Level 3 Est. Patient 17:31:00 PRODUCTION CONTROL COORDINATING CLERK Cj Rodriguez [facility] CPT-80622 Level 3 Est. Patient 19:07:23 CDT Cj Rodriguez [facility] CPT-15899 Level 3 Est. Patient 16:45:43 PRODUCTION CONTROL COORDINATING CLERK Marielena Barrett APRN [facility] CPT-39315 Level 3 Est. Patient 14:52:49 PRODUCTION CONTROL COORDINATING CLERK Eric muhammad MD [facility] CPT-78965 Level 3 Est. Patient 15:41:51 CDT Eric muhammad MD [facility] Procedures Code Procedure Name Date Entry Date Standard Desc ription CPT-65821 Chest 2V Frontal and Lat 10:48:26 CDT 01/08
--- OUTSIDE RECORDS SUMMARY | 2020-04-05 22:13 | XMS REPORT | Clinical Summary ---
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 Insomnia, unspecified Depression 311 Active Marielena Estes APRN Depressive disorder, not elsewhere classified Hemorrhoids, external 455.3 Active Cj SARAH External hemorrhoids without mention of complication Medication List Medication Instructions Start Date Stop Date Generic Name [facility] Status Provider Patient Instruction TYLENOL PM EXTRA STRENGTH 1000-50 MG/30ML ORAL LIQD 2 tabs p o at bedtime DIPHENHYDRAMINE-APAP (SLEEP) 93757685779 Active Cj SARAH Active TOPAMAX 25 MG TABS 1 qHS x 1 week, then 1 BID x 1 week, then 1 qAM and 2 qHS x 1 week, then 2 BID (migraine prevention) TOPIRAMAT E 37735031136 No Longer Active Cj SARAH Active AMITRIPTYLINE HCL 25 MG TABS 1 tablet at HS AMITRIPTYLINE HCL 82749787416 No Longer Active Cj SARAH Activ e MOBIC 7.5 MG TABS 1 tablet by mouth twice daily MELOXICAM 21475056731 No Longer Active Marielena Estes APRN Active PREDNISONE 20 MG TAB 3 tabs daily for 3 days, 2 t abs daily for 3 days, 1 tab daily for 3 days, 1/2 tab daily for 3 days PREDN CARLOTA 40191027954 No Longer Active Eric Hester MD Active PREDNISONE 20 MG TAB 2 tabs daily for 3 days, 1 t ab daily for 3 days, 1/2 tab daily for 2 days PREDNISONE 52619210414 No Longer Active Eric Hester MD Active MOBIC 7.5 MG TABS 1 tablet by mouth twice daily 10/30 MOBIC 7.5 MG TABS 146954 MELOXICAM Inactive AMITRIPTYLINE HCL 25 MG TABS 1 tablet at HS AMITRIPTYLINE HCL 25 MG TABS 821164 AMITRIPTYLINE HCL Inactive TOPAMAX 25 MG TABS 1 qHS x 1 week, then 1 BID x 1 week, then 1 qAM and 2 qHS x 1 week, then 2 BID (migraine prevention) TOPAMAX 2 5 MG TABS 249106 TOPIRAMATE Inactive PREDNISONE 20 MG TAB 2 tabs daily for 3 days, 1 t ab daily for 3 days, 1/2 tab daily for 2 days PREDNISONE 20 MG TAB 699711 PREDNISON E Inactive PREDNISONE 20 MG TAB 3 tabs daily for 3 days, 2 t abs daily for 3 days, 1 tab daily for 3 days, 1/2 tab daily for 3 days PREDNISONE 20 MG TAB 013773 PREDNISONE Inactive Vital Signs Date Name Value Unit Range Description blood pressure, diastolic - 8462-4 82 mm[Hg] BP post blood pressure, systolic - 8480-6 134 mm[Hg] BP sys pulse rate E&M - 8867-4 82 /min H eart rate temperature E&M 98.8 [degF] Body temp erature weight E&M - 3141-9 160 [lb_av] Weigh t Measured Encounters Code Encounter Date Provider Facility CPT-01369 Level 3 Est. Patient 19:07:23 CDT Cj SARAH [facility] CPT-42353 Level 3 Est. Patient 16:45:43 CONTINUING EDUCATION SPECIALIST Marielena Barrett APRN [facility] CPT-51730 Level 3 Est. Patient 14:52:49 CONTINUING EDUCATION SPECIALIST Eric muhammad MD [facility] CPT-47853 Level 3 Est. Patient 15:41:51 CDT Eric muhammad MD [facility]
--- OUTSIDE RECORDS SUMMARY | 2020-04-05 22:13 | XMS REPORT | Clinical Summary ---
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 Insomnia, unspecified Depression 311 Active Marielena Estes APRN Depressive disorder, not elsewhere classified Hemorrhoids, external 455.3 Active Cj candelario PA External hemorrhoids without mention of complication Anxiety [...] skin and change every 72 hours FENTANYL 63619939238 Active Ayan Devi DO Ac tive LISINOPRIL 20 MG TABS 1 tablet by mouth daily LISINOPRIL 42199750639 Active Ayan Devi DO Active PERCOCET 5-325 MG ORAL TABS 1 tab 4 times daily PRN Sparingly 03/09 OXYCODONE-ACETAMINOPHEN 17866209214 Active Fior Rice RUNSTITCHING MACHINE OPERATOR Active METOPROLOL SUCCINATE ER 25 MG ORAL [id number] 1 tablet daily for elevated blood pressure and heart rate METOPROLOL SUCCINATE 041236469 10 No Longer Active Ayan Devi DO Active METOPROLOL SUCCINATE 50 MG TB24 1 tablet by mouth daily METOPROLOL SUCCINATE 73465576378 Active Ayan Devi DO Active PROAIR HFA 108 (90 BASE) MCG/ACT AERS 2 puffs four lindsey es a day as needed for wheeze or cough ALBUTEROL SULFATE 40295507541 No Long er Active Ayan Devi DO Active AZITHROMYCIN 250 MG TABS 2 po qd x 1 day, then 1 po qd x 4 days AZITHROMYCIN 29529614527 No Longer Active Ayan Devi DO A ctive TRAMADOL HCL 50 MG ORAL TABS Take 1/2 tab po TID with extra strength tylenol TRAMADOL HCL 57304926653 No Longer Active Ayan Devi DO Active FENTANYL 12 MCG/HR TRANS PT72 Apply two patches to boris an dry skin and change every 3 days. FENTANYL 63768320425 No Longer Active Monica Devi DO Active VENLAFAXINE HCL ER 75 MG ORAL [id number] 1 capsule daily for anxiety/depression VENLAFAXINE HCL 26720071696 Active Ayan Devi DO Active VENLAFAXINE HCL 37.5 MG ORAL TABS Take 1 tab po daily x 7 days then increase to twice daily VENLAFAXINE HCL 57614153198 No Longer Active Ayan Devi DO Active ZOLPIDEM TARTRATE 10 MG ORAL TABS 1 tab PO at hs PRN insomnia 20 03/09/08 ZOLPIDEM TARTRATE 59850324590 No Longer Active Ayan Devi DO Active ALPRAZOLAM 0.5 MG ORAL TABS 1 PO q 8 hrs PRN AL PRAZOLAM 77718506534 No Longer Active Ayan Devi DO Active ESCITALOPRAM OXALATE 10 MG ORAL TABS 1 tab PO daily ESCITALOPRAM OXALATE 34387589323 No Longer Active Cj SARAH Activ e CITALOPRAM HYDROBROMIDE 20 MG ORAL TABS 1 tablet PO da asha. Do not miss or skip doses. Contact your provider if you intend to discontinue this medication. 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 ALPRAZOLAM 0.5 MG ORAL TABS 1 tablet PO q 8 hrs PRN 03/09/08 ALPRAZOLAM 62667102516 No Longer Active Kiley Naff DRUM LOADER AND UNLOADER Active TYLENOL PM EXTRA STRENGTH 1000-50 MG/30ML ORAL LIQD 2 tabs p o at bedtime DIPHENHYDRAMINE-APAP (SLEEP) 65755373013 No Longer Ac tive Kiley Naff DRUM LOADER AND UNLOADER Active TOPAMAX 25 MG TABS 1 qHS x 1 week, then 1 BID x 1 week, then 1 qAM and 2 qHS x 1 week, then 2 BID (migraine prevention) TOPIRAMAT E 19476788633 No Longer Active Cj SARAH Active AMITRIPTYLINE HCL 25 MG TABS 1 tablet at HS AMITRIPTYLINE HCL 00587071905 No Longer Active Cj Rodriguez PA Activ e MOBIC 7.5 MG TABS 1 tablet by mouth twice daily MELOXICAM 45207734274 No Longer Active Marielena Estes APRN Active PREDNISONE 20 MG TAB 3 tabs daily for 3 days, 2 t abs daily for 3 days, 1 tab daily for 3 days, 1/2 tab daily for 3 days PREDN CARLOTA 32844998597 No Longer Active Eric Hester MD Active PREDNISONE 20 MG TAB 2 tabs daily for 3 days, 1 t ab daily for 3 days, 1/2 tab daily for 2 days PREDNISONE 72199747073 No Longer Active Eric Hester MD Active MOBIC 7.5 MG TABS 1 tablet by mouth twice daily 10/30 MOBIC 7.5 MG TABS 542580 MELOXICAM Inactive AMITRIPTYLINE HCL 25 MG TABS 1 tablet at HS AMITRIPTYLINE HCL 25 MG TABS 655613 AMITRIPTYLINE HCL Inactive TOPAMAX 25 MG TABS 1 qHS x 1 week, then 1 BID x 1 week, then 1 qAM and 2 qHS x 1 week, then 2 BID (migraine prevention) TOPAMAX 2 5 MG TABS 830969 TOPIRAMATE Inactive TYLENOL PM EXTRA STRENGTH 1000-50 MG/30ML ORAL LIQD 2 tabs p o at bedtime TYLENOL PM EXTRA STRENGTH 1000-50 MG/30ML ORAL L IQD DIPHENHYDRAMINE-APAP (SLEEP) Inactive ALPRAZOLAM 0.5 MG ORAL TABS 1 tablet PO q 8 hrs PRN 20 03/09/08 ALPRAZOLAM 0.5 MG ORAL TABS 049244 ALPRAZOLAM Inactive CITALOPRAM HYDROBROMIDE 20 MG ORAL TABS 1 tablet PO da asha. Do not miss or skip doses. Contact your provider if you intend to discontinue this medication. CITALOPRAM HYDROBROMIDE 20 MG ORAL TABS 311176 CITALOPRAM HYDROBROMIDE Inactive ALPRAZOLAM 0.5 MG ORAL TABS 1 PO q 8 hrs PRN 1 ALPRAZOLAM 0.5 MG ORAL TABS 815522 ALPRAZOLAM Inactive ZOLPIDEM TARTRATE 10 MG ORAL TABS 1 tab PO at hs PRN insomnia 20 03/09/08 ZOLPIDEM TARTRATE 10 MG ORAL TABS 982913 ZOLPIDEM TARTR ATE Inactive VENLAFAXINE HCL 37.5 MG ORAL TABS Take 1 tab po daily x 7 days then increase to twice daily VENLAFAXINE HCL 37.5 MG ORAL TABS 433782 VENLAFAXINE HCL Inactive FENTANYL 12 MCG/HR TRANS PT72 Apply two patches to boris an dry skin and change every 3 days. FENTANYL 12 MCG/HR TRANS PT72 987670 FENTANYL Inactive TRAMADOL HCL 50 MG ORAL TABS Take 1/2 tab po TID with extra strength tylenol TRAMADOL HCL 50 MG ORAL TABS 396967 TRAMADOL HCL Inactive PROAIR HFA 108 (90 BASE) MCG/ACT AERS 2 puffs four lindsey es a day as needed for wheeze or cough PROAIR HFA 108 (90 BASE) MCG/ACT AERS ALBUTEROL SULFATE Inactive METOPROLOL SUCCINATE ER 25 MG ORAL [id number] 1 tablet daily for elevated blood pressure and heart rate METOPROLOL SUCCI VANDANA ER 25 MG ORAL [id number] METOPROLOL SUCCINATE Inactive PREDNISONE 20 MG TAB 2 tabs daily for 3 days, 1 t ab daily for 3 days, 1/2 tab daily for 2 days PREDNISONE 20 MG TAB 976067 PREDNISON E Inactive PREDNISONE 20 MG TAB 3 tabs daily for 3 days, 2 t abs daily for 3 days, 1 tab daily for 3 days, 1/2 tab daily for 3 days PREDNISONE 20 MG TAB 543473 PREDNISONE Inactive AZITHROMYCIN 250 MG TABS 2 po qd x 1 day, then 1 po qd x 4 days AZITHROMYCIN 250 MG TABS 5336368 AZITHROMYCIN Inactiv e Vital Signs Date Name [...] Panel - Chemistry sodium, serum 141 mmol/L 300-150 7625/06/09 carbon dioxide, venous blood 30.5 mmol/L 21.0-32 [...] Negative;Positive Encounters Code Encounter Date Provider Facility CPT-78620 Level 3 Est. Patient 17:32:44 CDT Ayan goldsmith [facility] CPT-02356 Level 3 Est. Patient 10:14:46 CDT Ayan goldsmith [facility] CPT-02403 Level 3 Est. Patient 10:38:22 CDT Ayan goldsmith [facility] CPT-92974 Level 4 Est. Patient 09:30:39 CDT Ayan goldsmith [facility] CPT-79213 Level 3 Est. Patient 17:31:00 DESK ASSISTANT Cj Rodriguez [facility] CPT-65137 Level 3 Est. Patient 19:07:23 CDT Cj Rodriguez [facility] CPT-28308 Level 3 Est. Patient 16:45:43 DESK ASSISTANT Marielena Barrett APRN [facility] CPT-35022 Level 3 Est. Patient 14:52:49 DESK ASSISTANT Eric muhammad MD [facility] CPT-86652 Level 3 Est. Patient 15:41:51 CDT Eric muhammad MD [facility] Procedures Code Procedure Name Date Entry Date Standard Desc ription CPT-44048 Chest 2V Frontal and Lat 10:48:26 CDT 01/08
--- OUTSIDE RECORDS SUMMARY | 2020-04-05 22:13 | XMS REPORT | Clinical Summary ---
Author Author Admin, Esequiel Vo Organization [facility] [employer] Address Unknown Phone Unavailable Allergies, Adverse Reactions, [...] status migrainosus Insomnia 780.52 Active Marielena Estes WOUND TREATMENT RN Insomnia, unspecified Depression 311 Active Marielena Estes APRN Depressive disorder, not elsewhere classified Hemorrhoids, external 455.3 Active jC SARAH External hemorrhoids without mention of complication [...] needed for wheeze or cough ALBUTEROL SULFATE 97242348418 Active B lebron Devi DO Active METOPROLOL SUCCINATE ER 25 MG ORAL [id number] 1 tablet daily for elevated blood pressure and heart rate METOPROLOL SUCCINATE 77473072784 A ctive Ayan Devi DO Active AZITHROMYCIN 250 MG TABS 2 po qd x 1 day, then 1 po qd x 4 days AZITHROMYCIN 19294526988 Active Ayan Devi DO Active TRAMADOL HCL 50 MG ORAL TABS Take 1/2 tab po TID with extra strength tylenol TRAMADOL HCL 52016279373 No Longer Active Ayan Devi DO Active FENTANYL 12 MCG/HR TRANS PT72 Apply two patches to boris an dry skin and change every 3 days. FENTANYL 90357321753 No Longer Active Monica Devi DO Active VENLAFAXINE HCL ER 75 MG ORAL [id number] 1 capsule daily for anxiety/depression VENLAFAXINE HCL 53676759871 Active Ayan Devi DO Active VENLAFAXINE HCL 37.5 MG ORAL TABS Take 1 tab po daily x 7 days then increase to twice daily VENLAFAXINE HCL 60203381375 No Longer Active Ayan Devi DO Active ZOLPIDEM TARTRATE 10 MG ORAL TABS 1 tab PO at hs PRN insomnia 20 03/09/08 ZOLPIDEM TARTRATE 26296944429 No Longer Active Ayan Devi DO Active ALPRAZOLAM 0.5 MG ORAL TABS 1 PO q 8 hrs PRN AL PRAZOLAM 68839798002 No Longer Active Ayan Devi DO Active ESCITALOPRAM OXALATE 10 MG ORAL TABS 1 tab PO daily ESCITALOPRAM OXALATE 80828129304 No Longer Active Cj Valencia CITALOPRAM HYDROBROMIDE 20 MG ORAL TABS 1 tablet PO da asha. Do not miss or skip doses. Contact your provider if you intend to discontinue this medication. CITALOPRAM HYDROBROMIDE 01818176480 No Longer Active Kiley Naff PUBLIC ADDRESS SYSTEM INSTALLER Active ALPRAZOLAM 0.5 MG ORAL TABS 1 tablet PO q 8 hrs PRN 03/09/08 ALPRAZOLAM 67756071234 No Longer Active Kiley Vang PUBLIC ADDRESS SYSTEM INSTALLER Active TYLENOL PM EXTRA STRENGTH 1000-50 MG/30ML ORAL LIQD 2 tabs p o at bedtime DIPHENHYDRAMINE-APAP (SLEEP) 32241236761 No Longer Ac tive Kiley Vang PUBLIC ADDRESS SYSTEM INSTALLER Active TOPAMAX 25 MG TABS 1 qHS x 1 week, then 1 BID x 1 week, then 1 qAM and 2 qHS x 1 week, then 2 BID (migraine prevention) TOPIRAMAT E 62768078260 No Longer Active Cj SARAH Active AMITRIPTYLINE HCL 25 MG TABS 1 tablet at HS AMITRIPTYLINE HCL 13530831681 No Longer Active Cj SARAH Activ e MOBIC 7.5 MG TABS 1 tablet by mouth twice daily MELOXICAM 28715649313 No Longer Active Marielena Estes APRN Active PREDNISONE 20 MG TAB 3 tabs daily for 3 days, 2 t abs daily for 3 days, 1 tab daily for 3 days, 1/2 tab daily for 3 days PREDN ISONE 08549152823 No Longer Active Eric Hester MD Active PREDNISONE 20 MG TAB 2 tabs daily for 3 days, 1 t ab daily for 3 days, 1/2 tab daily for 2 days PREDNISONE 55401240886 No Longer Active Eric Hester MD Active MOBIC 7.5 MG TABS 1 tablet by mouth twice daily 10/30 MOBIC 7.5 MG TABS 709301 MELOXICAM Inactive AMITRIPTYLINE HCL 25 MG TABS 1 tablet at HS AMITRIPTYLINE HCL 25 MG TABS 723583 AMITRIPTYLINE HCL Inactive TOPAMAX 25 MG TABS 1 qHS x 1 week, then 1 BID x 1 week, then 1 qAM and 2 qHS x 1 week, then 2 BID (migraine prevention) TOPAMAX 2 5 MG TABS 769089 TOPIRAMATE Inactive TYLENOL PM EXTRA STRENGTH 1000-50 MG/30ML ORAL LIQD 2 tabs p o at bedtime TYLENOL PM EXTRA STRENGTH 1000-50 MG/30ML ORAL L IQD DIPHENHYDRAMINE-APAP (SLEEP) Inactive ALPRAZOLAM 0.5 MG ORAL TABS 1 tablet PO q 8 hrs PRN 20 03/09/08 ALPRAZOLAM 0.5 MG ORAL TABS 726483 ALPRAZOLAM Inactive CITALOPRAM HYDROBROMIDE 20 MG ORAL TABS 1 tablet PO da asha. Do not miss or skip doses. Contact your provider if you intend to discontinue this medication. CITALOPRAM HYDROBROMIDE 20 MG ORAL TABS 677018 CITALOPRAM HYDROBROMIDE Inactive ALPRAZOLAM 0.5 MG ORAL TABS 1 PO q 8 hrs PRN 1 ALPRAZOLAM 0.5 MG ORAL TABS 922593 ALPRAZOLAM Inactive ZOLPIDEM TARTRATE 10 MG ORAL TABS 1 tab PO at hs PRN insomnia 20 03/09/08 ZOLPIDEM TARTRATE 10 MG ORAL TABS 481433 ZOLPIDEM TARTR ATE Inactive VENLAFAXINE HCL 37.5 MG ORAL TABS Take 1 tab po daily x 7 days then increase to twice daily VENLAFAXINE HCL 37.5 MG ORAL TABS 797308 VENLAFAXINE HCL Inactive FENTANYL 12 MCG/HR TRANS PT72 Apply two patches to boris an dry skin and change every 3 days. FENTANYL 12 MCG/HR TRANS PT72 455139 FENTANYL Inactive TRAMADOL HCL 50 MG ORAL TABS Take 1/2 tab po TID with extra strength tylenol TRAMADOL HCL 50 MG ORAL TABS 146943 TRAMADOL HCL Inactive PREDNISONE 20 MG TAB 2 tabs daily for 3 days, 1 t ab daily for 3 days, 1/2 tab daily for 2 days PREDNISONE 20 MG TAB 532555 PREDNISON E Inactive PREDNISONE 20 MG TAB 3 tabs daily for 3 days, 2 t abs daily for 3 days, 1 tab daily for 3 days, 1/2 tab daily for 3 days PREDNISONE 20 MG TAB 172955 PREDNISONE Inactive Vital Signs Date Name Value [...] Negative;Positive Encounters Code Encounter Date Provider Facility CPT-42821 Level 3 Est. Patient 10:38:22 CDT Ayan goldsmith [facility] CPT-46581 Level 4 Est. Patient 09:30:39 CDT Ayan goldsmith [facility] CPT-49028 Level 3 Est. Patient 17:31:00 TRAIN EXAMINER Cj Rodriguez [facility] CPT-41525 Level 3 Est. Patient 19:07:23 CDT Cj Rodriguez [facility] CPT-79971 Level 3 Est. Patient 16:45:43 TRAIN EXAMINER Marielena Barrett APRN [facility] CPT-50525 Level 3 Est. Patient 14:52:49 TRAIN EXAMINER Eric muhammad MD [facility] CPT-95088 Level 3 Est. Patient 15:41:51 CDT Eric muhammad MD [facility] Procedures Code Procedure Name Date Entry Date Standard Desc ription CPT-43598 Chest 2V Frontal and Lat 10:48:26 CDT 01/08
--- OUTSIDE RECORDS SUMMARY | 2020-04-05 22:13 | XMS REPORT | Clinical Summary ---
Author Author Admin, Esequiel Vo Organization [facility] Address Unknown Phone Unavailable Allergies, [...] status migrainosus Insomnia 780.52 Active Marielena Estes GRADUATE INTERNSHIP Insomnia, unspecified Depression 311 Active Marielena Estes APRN Depressive disorder, not elsewhere classified Hemorrhoids, external 455.3 Active Cj SARAH External hemorrhoids without mention of complication Anxiety 300.00 Active Cj SARAH Anxiety state, unspecified Insomnia 780.52 Active Cj SARAH Insomnia, unspecified Medication List Medication Instructions Start Date Stop Date Generic Name [facility] Status Provider Patient Instruction VENLAFAXINE HCL 37.5 MG ORAL TABS Take 1 tab po daily x 7 days then increase to twice daily VENLAFAXINE HCL 61981214094 Active Frederic Wen MA Active ZOLPIDEM TARTRATE 10 MG ORAL TABS 1 tab PO at hs PRN insomnia 08/27 ZOLPIDEM TARTRATE 94517579307 Active Cj SARAH Acti ve ALPRAZOLAM 0.5 MG ORAL TABS 1 PO q 8 hrs PRN AL PRAZOLAM 90091894571 Active Cj SARAH Active ESCITALOPRAM OXALATE 10 MG ORAL TABS 1 tab PO daily ESCITALOPRAM OXALATE 58321502342 No Longer Active Cj SARAH Activ e CITALOPRAM HYDROBROMIDE 20 MG ORAL TABS 1 tablet PO brenda barry. Do not miss or skip doses. Contact your provider if you intend to discontinue this medication. CITALOPRAM HYDROBROMIDE 47990744650 No Longer Active Kiley Vang WIRE ROPE SLING MAKER Active ALPRAZOLAM 0.5 MG ORAL TABS 1 tablet PO q 8 hrs PRN 03/09/08 ALPRAZOLAM 42228825510 No Longer Active Kiley Naff WIRE ROPE SLING MAKER Active TYLENOL PM EXTRA STRENGTH 1000-50 MG/30ML ORAL LIQD 2 tabs p o at bedtime DIPHENHYDRAMINE-APAP (SLEEP) 54307154737 No Longer Ac tive Kiley Naff WIRE ROPE SLING MAKER Active TOPAMAX 25 MG TABS 1 qHS x 1 week, then 1 BID x 1 week, then 1 qAM and 2 qHS x 1 week, then 2 BID (migraine prevention) TOPIRAMAT E 96110563789 No Longer Active Cj SARAH Active AMITRIPTYLINE HCL 25 MG TABS 1 tablet at HS AMITRIPTYLINE HCL 84208702955 No Longer Active Cj SARAH Activ e MOBIC 7.5 MG TABS 1 tablet by mouth twice daily MELOXICAM 81314907960 No Longer Active Marielena Estes APRN Active PREDNISONE 20 MG TAB 3 tabs daily for 3 days, 2 t abs daily for 3 days, 1 tab daily for 3 days, 1/2 tab daily for 3 days PREDN ISONE 84671907504 No Longer Active Eric Hester MD Active PREDNISONE 20 MG TAB 2 tabs daily for 3 days, 1 t ab daily for 3 days, 1/2 tab daily for 2 days PREDNISONE 34162951188 No Longer Active Eric Hester MD Active MOBIC 7.5 MG TABS 1 tablet by mouth twice daily 10/30 MOBIC 7.5 MG TABS 852000 MELOXICAM Inactive AMITRIPTYLINE HCL 25 MG TABS 1 tablet at HS AMITRIPTYLINE HCL 25 MG TABS 120312 AMITRIPTYLINE HCL Inactive TOPAMAX 25 MG TABS 1 qHS x 1 week, then 1 BID x 1 week, then 1 qAM and 2 qHS x 1 week, then 2 BID (migraine prevention) TOPAMAX 2 5 MG TABS 706838 TOPIRAMATE Inactive TYLENOL PM EXTRA STRENGTH 1000-50 MG/30ML ORAL LIQD 2 tabs p o at bedtime TYLENOL PM EXTRA STRENGTH 1000-50 MG/30ML ORAL L IQD DIPHENHYDRAMINE-APAP (SLEEP) Inactive ALPRAZOLAM 0.5 MG ORAL TABS 1 tablet PO q 8 hrs PRN 20 03/09/08 ALPRAZOLAM 0.5 MG ORAL TABS 088202 ALPRAZOLAM Inactive CITALOPRAM HYDROBROMIDE 20 MG ORAL TABS 1 tablet PO da asha. Do not miss or skip doses. Contact your provider if you intend to discontinue this medication. CITALOPRAM HYDROBROMIDE 20 MG ORAL TABS 296713 CITALOPRAM HYDROBROMIDE Inactive PREDNISONE 20 MG TAB 2 tabs daily for 3 days, 1 t ab daily for 3 days, 1/2 tab daily for 2 days PREDNISONE 20 MG TAB 996510 PREDNISON E Inactive PREDNISONE 20 MG TAB 3 tabs daily for 3 days, 2 t abs daily for 3 days, 1 tab daily for 3 days, 1/2 tab daily for 3 days PREDNISONE 20 MG TAB 556266 PREDNISONE Inactive Vital Signs Date Name Value [...] Measured Encounters Code Encounter Date Provider Facility CPT-32028 Level 3 Est. 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 Patient 19:07:23 CDT Cj SARAH [facility] CPT-78837 Level 3 Est. Patient 16:45:43 REVERSING MILL ROLLER Marielena Barrett APRN [facility] CPT-50337 Level 3 Est. Patient 14:52:49 REVERSING MILL ROLLER Eric muhammad MD [facility] CPT-87202 Level 3 Est. Patient 15:41:51 CDT Eric muhammad MD [facility]
--- OUTSIDE RECORDS SUMMARY | 2020-04-05 22:13 | XMS REPORT | Clinical Summary ---
Author Author Admin, Esequiel Vo Organization [facility] [employer] Address Unknown Phone Unavailable Allergies, Adverse Reactions, [...] status migrainosus Insomnia 780.52 Active Marielena Estes SIZING SPRAYER Insomnia, unspecified Depression 311 Active Marielena Estes APRN Depressive disorder, not elsewhere classified Hemorrhoids, external 455.3 Active Cj candelario PA External hemorrhoids without mention of complication Anxiety 300.00 Active Cj ASRAH Anxiety state, unspecified Insomnia 780.52 Active Cj [...] Generic Name NDC Status Provider Patient Instruction LISINOPRIL 20 MG TABS 1 tablet by mouth daily LISINOPRIL 96812175494 Active Ayan Devi DO Active PERCOCET 5-325 MG ORAL TABS 1 tab 4 times daily PRN Sparingly 03/09 OXYCODONE-ACETAMINOPHEN 49140344902 Active Ayan Devi DO Ac tive METOPROLOL SUCCINATE ER 25 MG ORAL [id number] 1 tablet daily for elevated blood pressure and heart rate METOPROLOL SUCCINATE 164096853 10 No Longer Active Ayan Devi DO Active METOPROLOL SUCCINATE 50 MG TB24 1 tablet by mouth daily METOPROLOL SUCCINATE 21303695310 Active Ayan Devi DO Active PROAIR HFA 108 (90 BASE) MCG/ACT AERS 2 puffs four lindsey es a day as needed for wheeze or cough ALBUTEROL SULFATE 63309365291 No Long er Active Ayan Devi DO Active AZITHROMYCIN 250 MG TABS 2 po qd x 1 day, then 1 po qd x 4 days AZITHROMYCIN 12764967052 No Longer Active Ayan Devi DO A ctive TRAMADOL HCL 50 MG ORAL TABS Take 1/2 tab po TID with extra strength tylenol TRAMADOL HCL 54817371114 No Longer Active Ayan Devi DO Active FENTANYL 12 MCG/HR TRANS PT72 Apply two patches to boris an dry skin and change every 3 days. FENTANYL 14634883013 No Longer Active Monica Devi DO Active VENLAFAXINE HCL ER 75 MG ORAL [id number] 1 capsule daily for anxiety/depression VENLAFAXINE HCL 55042042900 Active Ayan Devi DO Active VENLAFAXINE HCL 37.5 MG ORAL TABS Take 1 tab po daily x 7 days then increase to twice daily VENLAFAXINE HCL 59911493724 No Longer Active Ayan Devi DO Active ZOLPIDEM TARTRATE 10 MG ORAL TABS 1 tab PO at hs PRN insomnia 20 03/09/08 ZOLPIDEM TARTRATE 21276532006 No Longer Active Ayan Devi DO Active ALPRAZOLAM 0.5 MG ORAL TABS 1 PO q 8 hrs PRN AL PRAZOLAM 47541189321 No Longer Active Ayan Devi DO Active ESCITALOPRAM OXALATE 10 MG ORAL TABS 1 tab PO daily ESCITALOPRAM OXALATE 27869330876 No Longer Active Cj SARAH Activ e CITALOPRAM HYDROBROMIDE 20 MG ORAL TABS 1 tablet PO da asha. Do not miss or skip doses. Contact your provider if you intend to discontinue this medication. CITALOPRAM HYDROBROMIDE 95865320247 No Longer Active Kiley Vang LPN Active ALPRAZOLAM 0.5 MG ORAL TABS 1 tablet PO q 8 hrs PRN 03/09/08 ALPRAZOLAM 38409690102 No Longer Active Kiley Vang LPN Active TYLENOL PM EXTRA STRENGTH 1000-50 MG/30ML ORAL LIQD 2 tabs p o at bedtime DIPHENHYDRAMINE-APAP (SLEEP) 48726833821 No Longer Ac tive Kiley Vang STREET CAR MECHANIC Active TOPAMAX 25 MG TABS 1 qHS x 1 week, then 1 BID x 1 week, then 1 qAM and 2 qHS x 1 week, then 2 BID (migraine prevention) TOPIRAMAT E 50602246064 No Longer Active Cj SARAH Active AMITRIPTYLINE HCL 25 MG TABS 1 tablet at HS AMITRIPTYLINE HCL 25622082226 No Longer Active Cj SARAH Activ e MOBIC 7.5 MG TABS 1 tablet by mouth twice daily MELOXICAM 05087717301 No Longer Active Marielena Estes APRN Active PREDNISONE 20 MG TAB 3 tabs daily for 3 days, 2 t abs daily for 3 days, 1 tab daily for 3 days, 1/2 tab daily for 3 days PREDN ISONE 52433151510 No Longer Active Eric Hester MD Active PREDNISONE 20 MG TAB 2 tabs daily for 3 days, 1 t ab daily for 3 days, 1/2 tab daily for 2 days PREDNISONE 98728154995 No Longer Active Eric Hester MD Active MOBIC 7.5 MG TABS 1 tablet by mouth twice daily 10/30 MOBIC 7.5 MG TABS 677086 MELOXICAM Inactive AMITRIPTYLINE HCL 25 MG TABS 1 tablet at HS AMITRIPTYLINE HCL 25 MG TABS 698415 AMITRIPTYLINE HCL Inactive TOPAMAX 25 MG TABS 1 qHS x 1 week, then 1 BID x 1 week, then 1 qAM and 2 qHS x 1 week, then 2 BID (migraine prevention) TOPAMAX 2 5 MG TABS 219254 TOPIRAMATE Inactive TYLENOL PM EXTRA STRENGTH 1000-50 MG/30ML ORAL LIQD 2 tabs p o at bedtime TYLENOL PM EXTRA STRENGTH 1000-50 MG/30ML ORAL L IQD DIPHENHYDRAMINE-APAP (SLEEP) Inactive ALPRAZOLAM 0.5 MG ORAL TABS 1 tablet PO q 8 hrs PRN 20 03/09/08 ALPRAZOLAM 0.5 MG ORAL TABS 848594 ALPRAZOLAM Inactive CITALOPRAM HYDROBROMIDE 20 MG ORAL TABS 1 tablet PO da asha. Do not miss or skip doses. Contact your provider if you intend to discontinue this medication. CITALOPRAM HYDROBROMIDE 20 MG ORAL TABS 427302 CITALOPRAM HYDROBROMIDE Inactive ALPRAZOLAM 0.5 MG ORAL TABS 1 PO q 8 hrs PRN 1 ALPRAZOLAM 0.5 MG ORAL TABS 927681 ALPRAZOLAM Inactive ZOLPIDEM TARTRATE 10 MG ORAL TABS 1 tab PO at hs PRN insomnia 20 03/09/08 ZOLPIDEM TARTRATE 10 MG ORAL TABS 993894 ZOLPIDEM TARTR ATE Inactive VENLAFAXINE HCL 37.5 MG ORAL TABS Take 1 tab po daily x 7 days then increase to twice daily VENLAFAXINE HCL 37.5 MG ORAL TABS 495894 VENLAFAXINE HCL Inactive FENTANYL 12 MCG/HR TRANS PT72 Apply two patches to boris an dry skin and change every 3 days. FENTANYL 12 MCG/HR TRANS PT72 839103 FENTANYL Inactive TRAMADOL HCL 50 MG ORAL TABS Take 1/2 tab po TID with extra strength tylenol TRAMADOL HCL 50 MG ORAL TABS 864874 TRAMADOL HCL Inactive PROAIR HFA 108 (90 BASE) MCG/ACT AERS 2 puffs four lindsey es a day as needed for wheeze or cough PROAIR HFA 108 (90 BASE) MCG/ACT AERS ALBUTEROL SULFATE Inactive METOPROLOL SUCCINATE ER 25 MG ORAL [id number] 1 tablet daily for elevated blood pressure and heart rate METOPROLOL SUCCI VANDANA ER 25 MG ORAL [id number] METOPROLOL SUCCINATE Inactive PREDNISONE 20 MG TAB 2 tabs daily for 3 days, 1 t ab daily for 3 days, 1/2 tab daily for 2 days PREDNISONE 20 MG TAB 416469 PREDNISON E Inactive PREDNISONE 20 MG TAB 3 tabs daily for 3 days, 2 t abs daily for 3 days, 1 tab daily for 3 days, 1/2 tab daily for 3 days PREDNISONE 20 MG TAB 165495 PREDNISONE Inactive AZITHROMYCIN 250 MG TABS 2 po qd x 1 day, then 1 po qd x 4 days AZITHROMYCIN 250 MG TABS 8438027 AZITHROMYCIN Inactiv e Vital Signs Date Name [...] Panel - Chemistry sodium, serum 141 mmol/L 631-220 1294/06/09 carbon dioxide, venous blood 30.5 mmol/L 21.0-32 [...] Negative;Positive Encounters Code Encounter Date Provider Facility CPT-01017 Level 3 Est. Patient 17:32:44 CDT Ayan goldsmith [facility] CPT-77912 Level 3 Est. Patient 10:14:46 CDT Ayan goldsmith [facility] CPT-18092 Level 3 Est. Patient 10:38:22 CDT Ayan goldsmith [facility] CPT-15378 Level 4 Est. Patient 09:30:39 CDT Ayan goldsmith [facility] CPT-13691 Level 3 Est. 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 Patient 19:07:23 CDT Cj Rodriguez [facility] CPT-50291 Level 3 Est. Patient 16:45:43 GLUE JOINTER OPERATOR Marielena Barrett APRN [facility] CPT-81953 Level 3 Est. Patient 14:52:49 GLUE JOINTER OPERATOR Eric muhammad MD [facility] CPT-17023 Level 3 Est. Patient 15:41:51 CDT Eric muhammad MD [facility] Procedures Code Procedure Name Date Entry Date Standard Desc ription CPT-14071 Chest 2V Frontal and Lat 10:48:26 CDT 01/08
--- OUTSIDE RECORDS SUMMARY | 2020-04-05 22:13 | XMS REPORT | Clinical Summary ---
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 BLAST EQUIPMENT OPERATOR Insomnia, unspecified Depression 311 Active Marielena [...] TID with extra strength tylenol TRAMADOL HCL 67257949559 Active Raven Wen MA Active METOPROLOL SUCCINATE ER 25 MG ORAL [id number] 1/2 table t daily for elevated blood pressure and heart rate METOPROLOL SUCCINATE 52235667408 A ctive Ayan Devi DO Active VENLAFAXINE HCL ER 75 MG ORAL [id number] 1 capsule daily for anxiety/depression VENLAFAXINE HCL 08922530354 Active Ayan Devi DO Active VENLAFAXINE HCL 37.5 MG ORAL TABS Take 1 tab po daily x 7 days then increase to twice daily VENLAFAXINE HCL 74258458586 No Longer Active Ayan Devi DO Active ZOLPIDEM TARTRATE 10 MG ORAL TABS 1 tab PO at hs PRN insomnia 20 03/09/08 ZOLPIDEM TARTRATE 00749170967 No Longer Active Ayan Devi DO Active ALPRAZOLAM 0.5 MG ORAL TABS 1 PO q 8 hrs PRN AL PRAZOLAM 82388769490 No Longer Active Ayan Devi DO Active ESCITALOPRAM OXALATE 10 MG ORAL TABS 1 tab PO daily ESCITALOPRAM OXALATE 67069777444 No Longer Active Cj SARAH Activ e CITALOPRAM HYDROBROMIDE 20 MG ORAL TABS 1 tablet PO da asha. Do not miss or skip doses. Contact your provider if you intend to discontinue this medication. CITALOPRAM HYDROBROMIDE 49026320467 No Longer Active Kiley Naff DATA COMMUNICATIONS ENGINEER Active ALPRAZOLAM 0.5 MG ORAL TABS 1 tablet PO q 8 hrs PRN 20 03/09/08 ALPRAZOLAM 55124369742 No Longer Active Kiley Naff DATA COMMUNICATIONS ENGINEER Active TYLENOL PM EXTRA STRENGTH 1000-50 MG/30ML ORAL LIQD 2 tabs p o at bedtime DIPHENHYDRAMINE-APAP (SLEEP) 22027493651 No Longer Ac tive Kiley Naff DATA COMMUNICATIONS ENGINEER Active TOPAMAX 25 MG TABS 1 qHS x 1 week, then 1 BID x 1 week, then 1 qAM and 2 qHS x 1 week, then 2 BID (migraine prevention) TOPIRAMAT E 74008435934 No Longer Active Cj SARAH Active AMITRIPTYLINE HCL 25 MG TABS 1 tablet at HS AMITRIPTYLINE HCL 31223303844 No Longer Active Cj SARAH Activ e MOBIC 7.5 MG TABS 1 tablet by mouth twice daily MELOXICAM 06582928465 No Longer Active Marielena Estes APRN Active PREDNISONE 20 MG TAB 3 tabs daily for 3 days, 2 t abs daily for 3 days, 1 tab daily for 3 days, 1/2 tab daily for 3 days PREDN ISONE 73676645215 No Longer Active Eric Hester MD Active PREDNISONE 20 MG TAB 2 tabs daily for 3 days, 1 t ab daily for 3 days, 1/2 tab daily for 2 days PREDNISONE 23912515694 No Longer Active Eric Hester MD Active MOBIC 7.5 MG TABS 1 tablet by mouth twice daily 10/30 MOBIC 7.5 MG TABS 330667 MELOXICAM Inactive AMITRIPTYLINE HCL 25 MG TABS 1 tablet at HS AMITRIPTYLINE HCL 25 MG TABS 213583 AMITRIPTYLINE HCL Inactive TOPAMAX 25 MG TABS 1 qHS x 1 week, then 1 BID x 1 week, then 1 qAM and 2 qHS x 1 week, then 2 BID (migraine prevention) TOPAMAX 2 5 MG TABS 798514 TOPIRAMATE Inactive TYLENOL PM EXTRA STRENGTH 1000-50 MG/30ML ORAL LIQD 2 tabs p o at bedtime TYLENOL PM EXTRA STRENGTH 1000-50 MG/30ML ORAL L IQD DIPHENHYDRAMINE-APAP (SLEEP) Inactive ALPRAZOLAM 0.5 MG ORAL TABS 1 tablet PO q 8 hrs PRN 03/09/08 ALPRAZOLAM 0.5 MG ORAL TABS 740932 ALPRAZOLAM Inactive CITALOPRAM HYDROBROMIDE 20 MG ORAL TABS 1 tablet PO da asha. Do not miss or skip doses. Contact your provider if you intend to discontinue this medication. CITALOPRAM HYDROBROMIDE 20 MG ORAL TABS 593389 CITALOPRAM HYDROBROMIDE Inactive ALPRAZOLAM 0.5 MG ORAL TABS 1 PO q 8 hrs PRN 1 ALPRAZOLAM 0.5 MG ORAL TABS 598029 ALPRAZOLAM Inactive ZOLPIDEM TARTRATE 10 MG ORAL TABS 1 tab PO at hs PRN insomnia 20 03/09/08 ZOLPIDEM TARTRATE 10 MG ORAL TABS 447786 ZOLPIDEM TARTR ATE Inactive VENLAFAXINE HCL 37.5 MG ORAL TABS Take 1 tab po daily x 7 days then increase to twice daily VENLAFAXINE HCL 37.5 MG ORAL TABS 946806 VENLAFAXINE HCL Inactive PREDNISONE 20 MG TAB 2 tabs daily for 3 days, 1 t ab daily for 3 days, 1/2 tab daily for 2 days PREDNISONE 20 MG TAB 040068 PREDNISON E Inactive PREDNISONE 20 MG TAB 3 tabs daily for 3 days, 2 t abs daily for 3 days, 1 tab daily for 3 days, 1/2 tab daily for 3 days PREDNISONE 20 MG TAB 675745 PREDNISONE Inactive Vital Signs Date Name Value [...] Measured Encounters Code Encounter Date Provider Facility CPT-57072 Level 4 Est. Patient 09:30:39 CDT Ayan goldsmith DO [facility] CPT-16972 Level 3 Est. 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 Patient 19:07:23 CDT Cj Rodriguez [facility] CPT-86409 Level 3 Est. Patient 16:45:43 BUILDING CONSTRUCTION INSPECTOR Marielena Barrett APRN [facility] CPT-36838 Level 3 Est. Patient 14:52:49 BUILDING CONSTRUCTION INSPECTOR Eric muhammad MD [facility] CPT-27261 Level 3 Est. Patient 15:41:51 CDT Eric muhammad MD [facility]
--- OUTSIDE RECORDS SUMMARY | 2020-04-05 22:14 | XMS REPORT | Clinical Summary ---
Author Author Admin, Esequiel Vo Organization [facility] Address Unknown Phone Allergies, Adverse Reactions, Alerts Allergy Name Reaction Description Start Date Severity Status Pr ovider No Known Allergies Karla mallory Conditions or Problems Problem Name Problem Code Onset Date Status Entry Date Provider Comment Standard Description Annotate LOW BACK PAIN SYNDROME 724.2 Active Eric rutherford MD Lumbago Migraine headache 346.90 Active Marielena CATESN Migraine, unspecified, without mention of intractable migraine, without mention of status migrainosus Insomnia 780.52 Active Marielena Estes APRN Insomnia, unspecified Depression 311 Active Marielena Estes APRN Depressive disorder, not elsewhere classified Medication List Medication Instructions Start Date Stop Date Generic Name FORMERLY NAMED [facility] Status Provider Patient Instruction AMITRIPTYLINE HCL 25 MG TABS 1 tablet at HS AMI TRIPTYLINE HCL 78974373960 Active Katerine Al Active TOPAMAX 25 MG TABS 1 qHS x 1 week, then 1 BID x 1 week, then 1 qAM and 2 qHS x 1 week, then 2 BID (migraine prevention) TOPIRAMATE 16 414425227 Active Marielena Estes APRN Active MOBIC 7.5 MG TABS 1 tablet by mouth twice daily MELOXICAM 08085618155 No Longer Active Marielena Estes APRN Active PREDNISONE 20 MG TAB 3 tabs daily for 3 days, 2 t abs daily for 3 days, 1 tab daily for 3 days, 1/2 tab daily for 3 days PREDN ISONE 79232215058 No Longer Active Eric Hester MD Active PREDNISONE 20 MG TAB 2 tabs daily for 3 days, 1 t ab daily for 3 days, 1/2 tab daily for 2 days PREDNISONE 94456424775 No Longer Active Eric Hester MD Active MOBIC 7.5 MG TABS 1 tablet by mouth twice daily 10/30 MOBIC 7.5 MG TABS 460492 MELOXICAM Inactive PREDNISONE 20 MG TAB 2 tabs daily for 3 days, 1 t ab daily for 3 days, 1/2 tab daily for 2 days PREDNISONE 20 MG TAB 342093 PREDNISON E Inactive PREDNISONE 20 MG TAB 3 tabs daily for 3 days, 2 t abs daily for 3 days, 1 tab daily for 3 days, 1/2 tab daily for 3 days PREDNISONE 20 MG TAB 988126 PREDNISONE Inactive Vital Signs Date Name Value Unit Range Description blood pressure, diastolic 83 mm[Hg] BP post blood pressure, systolic 131 mm[Hg] BP sys height E&M 68 [in_us] Bdy height pulse rate E&M 83 /min Heart rate temperature E&M 97.9 [degF] Body temp erature weight E&M 166.25 [lb_av] Weight Measure d Encounters Code Encounter Date Provider Facility CPT-94798 Level 3 Est. 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 Patient 14:52:49 NATIONAL PARK TOUR GUIDE Eric muhammad MD [facility] CPT-04868 Level 3 Est. Patient 15:41:51 CDT Eric muhammad MD [facility]
--- OUTSIDE RECORDS SUMMARY | 2020-04-05 22:14 | XMS REPORT | Continuity of Care Document ---
Author Author [facility] Organization [facility] Address [facility] [address] [place] [address] Phone Unavailable Support Name Relationship Address Phone Dong Marshall MD Caregiver [address] [place] [id number] BO ROSS Next Of Kin [address] [place] [address] Insurance Providers Payer Name Policy Number Subscriber Name Relationship [facility] [id number] Esequiel Lopes 18 Self / Fam e As Patient Advance Directives Directive Response Recorded Date/Time Advance Directives No 03/03/16 2:00pm Living Will No 03/03/16 2:00pm Health Care Proxy No 03/03/16 2:00pm Power of Certified Medical Dosimetrist for Health Care No 2:00pm Organ, Tissue, or Eye Donor No 03/03/16 2:0 0pm Do you have a signed organ donor card? No 0 01/21/16 11:04am Problems No problem information available. Medications Current Home Medications Medication Dose Units Route Directions Days/Qty Instructions Star t Date Metoprolol Succinate 25 Mg Unknown Dose Oral Daily 01/28/16 Venlafaxine Hcl 75 Mg 75 Mg Oral Daily Oxycodone Hcl/Acetaminophen* 1 Tab 1-2 Ea Oral E very 6 Hrs As Needed For Pain 60 03/05/16 Social History Social History Problem Response Recorded Date/Reji e Smoking Status Current every day smoker 03/03/2016 2:00 pm Query Response Start Date Stop Date Smoking Status Current every day smoker Hospital Discharge Instructions Discharge Instructions Nursing Instructions Flu Vaccine Received this Visit: No Comment: REFUSED Pneumonia Vaccine Received this Visit: No Comment: REFUSED Education #1 Patient specific education materials provided?: Yes Patient Request Electronic Discharge Instructions: No Patient Health Summary printed/downloaded for the patient?: Yes Provider Discharge Instruction Other: PCP Follow Up In: 1 Week Other: 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 Other Lifting Restrictions: No bending or twisting motions Other Driving Restrictions: No driving while taking narcotic pain medication Other Showering Restrictions: None Wound Care: Keep incision clean and dry Notify Physician If You Experience Any: Red or Draining Wound, Fever Greater 100.5 F, Pain Not Relieved by Med., Excessive Bleeding Additional Instructions: Return to clinic at 2 weeks postop for wound check and staple removal Plan of Care Discharge Date 03/05/16 2:39pm Disposition 01 HOME, RESIDENTIAL,ASSISTED TITI [facility] Instructions/Education Provided Anterior Lumbar Interb dilcia Fusion (DC) Prescriptions See Medication Section Care Plan and Goals See Discharge Instructions S ection Functional Status Query Response Date Recorded [place] Coma Scale Total 15 March 05, 2016 9:04am Patient Behavior Appropriate Cooperative March 05, 2016 9:04am Allergies, Adverse Reactions, Alerts No known allergies. Immunizations Name Given Type Hx Influenza Vaccination No Historical Hx Pneumococcal Vaccination No Historical Vital Signs Acute Vital Signs Vital Response Date/Time Temperature (Fahrenheit) 97.8 degrees F (97.6 - 99.5) 2015 10:35am Temperature Source Temporal Artery 03/05/2016 10:35am Pulse Rate (adult) 79 bpm (60 - 90) 03/05/2016 10:35am Respiratory Rate 16 bpm (12 - 24) 03/05/2016 10:35am Blood Pressure 133/88 mm Hg 03/05/2016 10:35am O2 Sat by Pulse Oximetry 97 % (90 - 100) 03/05/2016 10:3 5am Oxygen Flow Rate 2.0 L/min 03/04/2016 8:38am Pain Intensity 8 03/05/2016 2:35pm Pain Intensity 4 03/04/2016 10:30am Pain Location Body Site Modifier 016 2:34pm Pain Description 03/05/2016 12:07am Pain Duration 1-3 Hours 03/03/2016 3:11pm Height 5 ft 8 in Weight 165 lb Body Mass Index 25.0 kg/m^2 Results Laboratory Results Test Name Result Units Flags Reference Collection Date/Time Result Date/Time Comments White Blood Count 7.4 K/uL 4.8-10.8 01/21/2016 11: 11:37am Red Blood Count 4.67 M/uL L 4.70-6.10 01/21/2016 11:11/2015 11:37am Hemoglobin 14.7 gm/dL 14.0-18.0 01/21/2016 11:01/21/20 16 11:37am Hematocrit 43.3 % 42.0-52.0 01/21/2016 11:01/21/20 16 11:37am Mean Corpuscular Volume 92.7 fL 80.0-96.1 2015 11:01/21/2016 11:37am Mean Corpuscular Hemoglobin 31.4 pg H 27.0-31.0 11:01/21/2016 11:37am Mean Corpuscular Hemoglobin Concent 33.8 g/dL 30.0 -37.0 01/21/2016 11:01/21/2016 11:37am Red Cell Distribution Width 12.8 % 11.5-14.5 11:01/21/2016 11:37am Platelet Count 281 K/uL 130-400 01/21/2016 11:2015 11:37am Mean Platelet Volume 9.0 fL 7.4-10.4 01/21/2016 11:01/21/2016 11:37am Neutrophils (%) (Auto) 56.4 % 42.2-75.2 01/21/2016 11:2 2am 01/21/2016 11:37am Lymphocytes (%) (Auto) 33.8 % 20.5-51.1 01/21/2016 11:2 2am 01/21/2016 11:37am Monocytes (%) (Auto) 6.5 % 1.7-9.3 01/21/2016 11:01/21/2016 11:37am Eosinophils (%) (Auto) 2.4 % 0-3 01/21/2016 11:22a m 01/21/2016 11:37am Basophils (%) (Auto) 0.8 % 0.0-1.0 01/21/2016 11:01/21/2016 11:37am Neutrophils # (Auto) 4.2 K/uL 2.0-6.9 01/21/2016 11:01/21/2016 11:37am Lymphocytes # (Auto) 2.5 K/uL 1.2-3.4 01/21/2016 11:01/21/2016 11:37am Monocytes # (Auto) 0.5 K/uL 0.1-0.6 01/21/2016 11: 11:37am Eosinophils # (Auto) 0.2 K/uL 0.0-0.7 01/21/2016 11:01/21/2016 11:37am Basophils # (Auto) 0.1 K/uL 0.0-0.2 01/21/2016 11: 11:37am Random Glucose 94 mg/dL 70-110 01/21/2016 11:2015 11:49am Blood Urea Nitrogen 7 mg/dL 7-18 01/21/2016 11:22am 0 01/21/2016 11:49am Creatinine 0.9 mg/dL 0.70-1.30 01/21/2016 11:01/21/20 16 11:49am Sodium Level 143 mEq/L 136-145 01/21/2016 11:01/21/20 16 11:49am Potassium Level 3.9 mEq/L 3.5-5.0 01/21/2016 11:01/20 11:49am Chloride Level 106 mEq/L 98-107 01/21/2016 11:2015 11:49am Carbon Dioxide Level 31.8 mEq/L 21-32 01/21/2016 11:01/21/2016 11:49am Calcium Level 9.1 mg/dL 8.8-10.5 01/21/2016 11:2015 11:49am Total Protein 7.3 gm/dL 6.4-8.2 01/21/2016 11: 016 11:49am Albumin 3.7 gm/dL 3.4-5.0 01/21/2016 11:01/21/2016 11 :49am Total Bilirubin 0.39 mg/dL 0.00-1.00 01/21/2016 11:22am 11/2015 11:49am Aspartate Amino Transf (AST/SGOT) 23 U/L 15-37 01/21/2016 11:22am 01/21/2016 11:49am Alanine Aminotransferase (ALT/SGPT) 46 U/L 12-7 8 01/21/2016 11:22am 01/21/2016 11:49am Total Alkaline Phosphatase 67 U/L 46-116 11/2015 11:22am 01/21/2016 11:49am Glomerular Filtration Rate Calc 105.3 mL/min 01/21/2016 11:22am 01/21/2016 11:49am Procedures Procedure Status Date Provider(s) Fusion of lumbar spine using anterior interbody technique Comple antonio 03/03/16 MarshallDong MD X-ray of chest, PA and lateral views Active 01/21/16 Marshall,Dong MEADE X-ray of lumbar spine, single view Active 03/03/16 Marshall,Dong MEADE Flu-W/Wo Pin.(In Surg) Completed 03/03/16 Dong Marshall MD Encounters Encounter Location Arrival/Admit Date Discharge/Depart Date Attending Provider Discharged Inpatient [facility] 03/03/16 5:44am 03/05/16 2:39pm Dong Hernandez MD Registered Clinic [facility] 01/21/16 11:12am Ziyad Marshall MD
--- OUTSIDE RECORDS SUMMARY | 2020-04-05 22:14 | XMS REPORT | Clinical Summary ---
Author Author Admin, Esequiel Vo Organization [facility] Address Unknown Phone Allergies, Adverse Reactions, Alerts [...] Instructions Start Date Stop Date Generic Name [facility] Status Provider Patient Instruction AMITRIPTYLINE HCL 25 MG TABS 1 tablet at HS AMI TRIPTYLINE HCL 56403080244 Active Katerine Al Active TOPAMAX 25 MG TABS 1 qHS x 1 week, then 1 BID x 1 week, then 1 qAM and 2 qHS x 1 week, then 2 BID (migraine prevention) TOPIRAMATE 16 652103640 Active Marielena Estes APRN Active MOBIC 7.5 MG TABS 1 tablet by mouth twice daily MELOXICAM 12710922909 No Longer Active Marielena Estes APRN Active PREDNISONE 20 MG TAB 3 tabs daily for 3 days, 2 t abs daily for 3 days, 1 tab daily for 3 days, 1/2 tab daily for 3 days PREDN ISONE 00030324859 No Longer Active Eric Hester MD Active PREDNISONE 20 MG TAB 2 tabs daily for 3 days, 1 t ab daily for 3 days, 1/2 tab daily for 2 days PREDNISONE 36698159729 No Longer Active Eric Hesetr MD Active MOBIC 7.5 MG TABS 1 tablet by mouth twice daily 10/30 MOBIC 7.5 MG TABS 627388 MELOXICAM Inactive PREDNISONE 20 MG TAB 2 tabs daily for 3 days, 1 t ab daily for 3 days, 1/2 tab daily for 2 days PREDNISONE 20 MG TAB 009496 PREDNISON E Inactive PREDNISONE 20 MG TAB 3 tabs daily for 3 days, 2 t abs daily for 3 days, 1 tab daily for 3 days, 1/2 tab daily for 3 days PREDNISONE 20 MG TAB 162603 PREDNISONE Inactive Vital Signs Date Name Value Unit Range Description blood pressure, diastolic 83 mm[Hg] BP post blood pressure, systolic 131 mm[Hg] BP sys height E&M 68 [in_us] Bdy height pulse rate E&M 83 /min Heart rate temperature E&M 97.9 [degF] Body temp erature weight E&M 166.25 [lb_av] Weight Measure d Encounters Code Encounter Date Provider Facility CPT-46654 Level 3 Est. Patient 16:45:43 [employer] Marielena Barrett APRN [facility] CPT-02048 Level 3 Est. Patient 14:52:49 [employer] Eric muhammad MD [facility] CPT-67210 Level 3 Est. Patient 15:41:51 CDT Eric muhammad MD [facility]
--- OUTSIDE RECORDS SUMMARY | 2020-04-05 22:14 | XMS REPORT | Clinical Summary ---
Author Author Admin, Esequiel Vo Organization [facility] Address Unknown Phone Allergies, Adverse Reactions, Alerts [...] Start Date Stop Date Generic Name [facility] Status Provider Patient Instruction AMITRIPTYLINE HCL 25 MG TABS 1 tablet at HS AMI TRIPTYLINE HCL 23219971931 Active Katerine Al Active TOPAMAX 25 MG TABS 1 qHS x 1 week, then 1 BID x 1 week, then 1 qAM and 2 qHS x 1 week, then 2 BID (migraine prevention) TOPIRAMATE 16 998649418 Active Marielena Estes APRN Active MOBIC 7.5 MG TABS 1 tablet by mouth twice daily MELOXICAM 05867888732 No Longer Active Marielena Estes APRN Active PREDNISONE 20 MG TAB 3 tabs daily for 3 days, 2 t abs daily for 3 days, 1 tab daily for 3 days, 1/2 tab daily for 3 days PREDN ISONE 14764068914 No Longer Active Eric Hester MD Active PREDNISONE 20 MG TAB 2 tabs daily for 3 days, 1 t ab daily for 3 days, 1/2 tab daily for 2 days PREDNISONE 52161210250 No Longer Active Eric Hester MD Active MOBIC 7.5 MG TABS 1 tablet by mouth twice daily 10/30 MOBIC 7.5 MG TABS 278532 MELOXICAM Inactive PREDNISONE 20 MG TAB 2 tabs daily for 3 days, 1 t ab daily for 3 days, 1/2 tab daily for 2 days PREDNISONE 20 MG TAB 125870 PREDNISON E Inactive PREDNISONE 20 MG TAB 3 tabs daily for 3 days, 2 t abs daily for 3 days, 1 tab daily for 3 days, 1/2 tab daily for 3 days PREDNISONE 20 MG TAB 980780 PREDNISONE Inactive Vital Signs Date Name Value Unit Range Description blood pressure, diastolic 83 mm[Hg] BP post blood pressure, systolic 131 mm[Hg] BP sys height E&M 68 [in_us] Bdy height pulse rate E&M 83 /min Heart rate temperature E&M 97.9 [degF] Body temp erature weight E&M 166.25 [lb_av] Weight Measure d Encounters Code Encounter Date Provider Facility CPT-01024 Level 3 Est. Patient 16:45:43 [employer] Marielena Barrett APRN [facility] CPT-36054 Level 3 Est. Patient 14:52:49 [employer] Eric muhammad MD [facility] CPT-23458 Level 3 Est. Patient 15:41:51 CDT Eric muhammad MD [facility]
== END 2020-04-05 21:23 | disposition home or self-care (01) ==
LOC: EDUNIT# 19:20 → ER 19:21
DX: S16.1XXA Strain of muscle, fascia and tendon at neck level, initial encounter (principal); T14.8XXA Other injury of unspecified body region, initial encounter; S30.811A Abrasion of abdominal wall, initial encounter; R40.2142 Coma scale, eyes open, spontaneous, at arrival to emergency department; R40.2252 Coma scale, best verbal response, oriented, at arrival to emergency department; R40.2362 Coma scale, best motor response, obeys commands, at arrival to emergency department; V53.5XXA Driver of pick-up truck or van injured in collision with car, pick-up truck or van in traffic accident, initial encounter
CPT/HCPCS: 36415; 74177; 80053; 85025

== ENCOUNTER 2020-10-13 06:29 | Emergency (ER) | payer OTHER ==
[~2020-10-13] VITALS: Ht 172.7 cm; Wt 83.7 kg
--- NOTE | 2020-10-13 06:55 | ED Abdominal Pain ---
General Chief Complaint: Abdominal/GI Problems Stated Complaint: LOWER ABDOMINAL PAIN History of Present Illness Date Seen by Provider: Oct 13, 2020 Time Seen by Provider: 06:45 Initial Comments 35-year-old male presents with some mid lower and right lower abdominal pain. He reports it started this morning. Seem to get worse if he bends over or moves. He is mildly nauseous has some chills. He had a back surgery and has incision in that area and wonders if he does not have a hernia. He had normal bowel movement yesterday with no diarrhea. He has not vomited despite been a little bit nauseous. He does not have any flank pain. (MARELY SANDERS DO) Allergies and Home Medications Allergies Coded Allergies: No Known Drug Allergies (Unverified , 04/05/20) Patient Home Medication List Home Medication List Reviewed: Yes (MARELY SANDERS DO) Review of Systems Review of Systems Constitutional: chills; No fever Respiratory: Denies Cough, Denies Shortness of Air Cardiovascular: Denies Chest Pain, Denies Lightheadedness, Denies Palpitations Gastrointestinal: Abdominal Pain; Denies Constipated, Denies Diarrhea; Nausea; Denies Vomiting Genitourinary: Denies Flank Pain, Denies Hematuria Musculoskeletal: no symptoms reported Skin: no symptoms reported Psychiatric/Neurological: No Symptoms Reported Endocrine: No Symptoms Reported Hematologic/Lymphatic: No Symptoms Reported (MARELY SANDERS DO) Past Srkrocx-Uiugzl-Owrktm Hx Past Med/Social Hx: Reviewed Nursing Past Med/Soc Hx (MARELY SANDERS DO) Past Medical History Surgeries: Yes Orthopedic Respiratory: No Cardiac: No Neurological: No Genitourinary: No Gastrointestinal: No Musculoskeletal: Yes Degenerate Disk Disease Endocrine: No (MARELY SANDERS DO) Physical Exam Vital Signs Vital Signs - First Documented 10/13/20 06:45 Temp 36.4 Pulse 73 Resp 14 B/P (MAP) 130/80 (97) Pulse Ox 100 O2 Delivery Room Air (YESY CLARK DO) Vital Signs Capillary Refill : (MARELY SANDERS DO) Height/Weight/BMI Height: '" Weight: lbs. oz. kg; 25.00 BMI Method: General Appearance: no apparent distress HEENT: PERRL/EOMI Respiratory: lungs clear, normal breath sounds Cardiovascular: normal peripheral pulses, regular rate, rhythm Gastrointestinal: soft, tenderness (Right lower quadrant and mid lower quadrant, incisional scar but no palpable hernia) Extremities: normal range of motion, non-tender Back: no CVA tenderness Neurologic/Psychiatric: alert, normal mood/affect, oriented x 3 Skin: normal color, warm/dry (SANDERS,MARELY L DO) Progress/Results/Core Measures Results/Orders Lab Results Laboratory Tests Test 10/13/20 06:45 10/13/20 07:16 Range/Units Urine Color YELLOW Urine Clarity CLEAR Urine pH 5.5 5-9 Urine Specific [place] >=1.030 1.016-1.022 Urine Protein NEGATIVE NEGATIVE Urine Glucose (UA) NEGATIVE NEGATIVE Urine Ketones NEGATIVE NEGATIVE Urine Nitrite NEGATIVE NEGATIVE Urine Bilirubin NEGATIVE NEGATIVE Urine Urobilinogen 0.2 < = 1.0 MG/DL Urine Leukocyte Esterase NEGATIVE NEGATIVE Urine RBC (Auto) NEGATIVE NEGATIVE Urine RBC NONE /HPF Urine WBC RARE /HPF Urine Squamous Epithelial Cells RARE /HPF Urine Crystals NONE /LPF Urine Bacteria NEGATIVE /HPF Urine Casts NONE /LPF Urine Mucus NEGATIVE /LPF Urine Culture Indicated NO White Blood Count 10.0 4.3-11.0 10^3/uL Red Blood Count 4.80 4.35-5.85 10^6/uL Hemoglobin 15.6 13.3-17.7 G/DL Hematocrit 44 40-54 % Mean Corpuscular Volume 92 80-99 FL Mean Corpuscular Hemoglobin 33 25-34 PG Mean Corpuscular Hemoglobin Concent 35 32-36 G/DL Red Cell Distribution Width 12.9 10.0-14.5 % Platelet Count 248 130-400 10^3/uL Mean Platelet Volume 11.2 H 7.4-10.4 FL Immature Granulocyte % (Auto) 0 % Neutrophils (%) (Auto) 48 42-75 % Lymphocytes (%) (Auto) 36 12-44 % Monocytes (%) (Auto) 11 0-12 % Eosinophils (%) (Auto) 5 0-10 % Basophils (%) (Auto) 1 0-10 % Neutrophils # (Auto) 4.8 1.8-7.8 X 10^3 Lymphocytes # (Auto) 3.6 1.0-4.0 X 10^3 Monocytes # (Auto) 1.1 H 0.0-1.0 X 10^3 Eosinophils # (Auto) 0.5 H 0.0-0.3 10^3/uL Basophils # (Auto) 0.1 0.0-0.1 10^3/uL Immature Granulocyte # (Auto) 0.0 0.0-0.1 10^3/uL Sodium Level 141 135-145 MMOL/L Potassium Level 4.1 3.6-5.0 MMOL/L Chloride Level 103 98-107 MMOL/L Carbon Dioxide Level 29 21-32 MMOL/L Anion Gap 9 5-14 MMOL/L Blood Urea Nitrogen 11 7-18 MG/DL Creatinine 1.00 0.60-1.30 MG/DL Estimat Glomerular Filtration Rate > 60 BUN/Creatinine Ratio 11 Glucose Level 100 70-105 MG/DL Calcium Level 9.9 8.5-10.1 MG/DL Corrected Calcium 8.5-10.1 MG/DL Total Bilirubin 0.3 0.1-1.0 MG/DL Aspartate Amino Transf (AST/SGOT) 27 5-34 U/L Alanine Aminotransferase (ALT/SGPT) 41 0-55 U/L Alkaline Phosphatase 87 40-136 U/L C-Reactive Protein 0.14 <0.50 MG/DL Total Protein 7.2 6.4-8.2 GM/DL Albumin 4.7 H 3.2-4.5 GM/DL ([facility]) Vital Signs/I&O 10/13/20 06:45 Temp 36.4 Pulse 73 Resp 14 B/P (MAP) 130/80 (97) Pulse Ox 100 O2 Delivery Room Air ([facility]) Progress Progress Note : Progress Note 1220 patient arrived per private vehicle for transfer since CT not available at [facility], will complete CT. Patient stable, no complaints at this time. [address], no acute findings. Reexamined abdomen, trace tenderness, suprapublic, Negative rebound, obturator and psoas testing. Negative heel tap. Patient able to ambulate and hop on his right leg, with no abdominal pain. Suprapubic pain with crunch or any firing of the abdominal muscles, no hernia noted. Patient reports the pain began on 10/11/2020 after he was lifting a heavy, large box. He presented today for evaluation, as the pain was affecting his ability to work. Discharge instructions and return precautions reviewed with the patient. All questions answered. (NARA ALEJANDRE) Diagnostic Imaging Diagonstic Imaging: CT Plain Films/CT/US/NM/MRI: abdomen, pelvis Comments NAME: CARMINE LOPES [facility] REC#: [id number] PT STATUS: REG ER : 1985 PHYSICIAN: NARA ALEJANDRE ADMIT DATE: 10/13/20/ER Signed Date of Exam:10/13/20 CT ABDOMEN/PELVIS W CT ABDOMEN/PELVIS W TECHNIQUE: Multiple contiguous axial images were obtained through the abdomen and pelvis after administration of intravenous contrast. All CT scans use one or more of the following dose optimizing techniques: automated exposure control, MA and/or KvP adjustment based on a patient size and exam type, or iterative reconstruction. INDICATION: Abdominal pain COMPARISON: 04/05/2020 FINDINGS: Lower chest: The lung bases are clear. No pericardial or pleural effusion. Peritoneum: No free intraperitoneal air or fluid. Liver and biliary system: The liver is normal. The gallbladder is normal. No biliary duct dilation. Spleen and Pancreas: Spleen is normal. The pancreas enhances normally without mass lesion or peripancreatic inflammatory changes. Adrenals: Normal. tract: The kidneys enhance normally without suspicious mass or obstruction. Urinary bladder is distended without wall thickening. Prostate is not enlarged. GI tract: Stomach is decompressed. No bowel obstruction. No pericolonic inflammatory changes. Normal appendix. Vasculature and Lymph nodes: Normal caliber aorta. No abdominal or pelvic lymphadenopathy. Musculoskeletal: No concerning osseous lesion. Stable changes of ALIF at L5-S1. IMPRESSION: No acute intra-abdominal process. Dictated by: Dictated on workstation # [id number] Dict: 10/13/20 1244 Trans: 10/13/20 1246 [facility] [id number] Interpreted by: BOZENA MEDINA MD Electronically signed by: BOZENA MEDINA MD 10/13/20 1246 Reviewed: Reviewed by Me (NARA ALEJANDRE) Departure Communication (Admissions) Initial lab and imaging studies reviewed and are nondiagnostic. Patient with persistent suprapubic/right lower quadrant pain/tenderness. Concern for possible appendicitis. Unfortunately the CT scanner at this facility is unavailable to complete work-up and the patient will require transfer to the closest emergency department for further evaluation. The case was discussed with the [facility] ED provider who accepted care of the patient. Patient request to go by private vehicle and contacted family members to drive him directly to the [place] ED. IV will remain in place and the patient is instructed to remain n.p.o. (YESY CLARK DO) Impression Primary Impression: Abdominal pain Qualified Codes: R10.33 - Periumbilical pain Additional Impression: Abdominal muscle strain Qualified Codes: S39.011A - Strain of muscle, fascia and tendon of abdomen, initial encounter Disposition: 02 XFER SHT-TRM HOSP Condition: Stable Transfer Transfer Reason: Exceeds level of care Method of Transfer: Private Vehicle (YESY CLARK DO) Departure-Patient Inst. Decision time for Depature: 13:10 (NARA ALEJANDRE) Referrals: ASHLEY HARE MD (PCP/Family) Primary Care Physician Patient Instructions: Muscle Strain (DC) Add. Discharge Instructions: Alternate Heat and Ice to lower abdomen for 20 min every 2 hours. Alternate between Tylenol 650 mg and ibuprofen 600 mg every 4 hours. Follow-up with your primary care provider if symptoms are not improving or worsen. Avoid any heavy lifting for the next 7 to 10 days. Return to an emergency department for increased abdominal pain, persistent nausea and vomiting, or new urgent healthcare needs. All discharge instructions reviewed with patient and/or family. Voiced understanding. Work/School Note: Work Release Form Date Seen in the Emergency Department: Oct 13, 2020 Return to Work: Oct 15, 2020 Other Restrictions Listed Below: Limit lifting, 10 to 20 pounds as tolerated. Copy Copies To 1: ASHLEY HARE MD, TREVOR L DO Oct 13, 2020 06:55 YESY CLARK DO Oct 13, 2020 10:40 NARA ALEJANDRE Oct 13, 2020 12:53
--- NOTE | 2020-10-13 07:08 | Diagnostic Imaging Report ---
INDICATION: Abdominal pain. COMPARISON: CT abdomen and pelvis of 04/05/2020. FINDINGS: Nonobstructive bowel gas pattern. A moderate amount of colonic stool is present. No free intraperitoneal air. Lung bases are clear. Prior ALIF at the lumbosacral junction. IMPRESSION: No acute abdominal process by radiography. Dictated by: Dictated on workstation # [id number]
[2020-10-13 07:26] LABS: BASOPHILS % (AUTO) 1 % (0-10); EOSINOPHILS % (AUTO) 5 % (0-10); HEMATOCRIT 44 % (40-54); HEMOGLOBIN 15.6 G/DL (13.3-17.7); LYMPHOCYTES % (AUTO) 36 % (12-44); MEAN CORPUSCULAR HEMOGLOBIN 33 PG (25-34); MEAN CORPUSCULAR HGB CONC 35 G/DL (32-36); MEAN CORPUSCULAR VOLUME 92 FL (80-99); MEAN PLATELET VOLUME 11.2 FL (7.4-10.4); MONOCYTES % (AUTO) 11 % (0-12); NEUTROPHILS % (AUTO) 48 % (42-75); PLATELET COUNT 248 10^3/uL (130-400)
[2020-10-13 07:27] LABS: BASOPHILS # (AUTO) 0.1 10^3/uL (0.0-0.1); EOSINOPHILS # (AUTO) 0.5 10^3/uL (0.0-0.3); LYMPHOCYTES # (AUTO) 3.6 X 10^3 (1.0-4.0); MONOCYTES # (AUTO) 1.1 X 10^3 (0.0-1.0); NEUTROPHILS # (AUTO) 4.8 X 10^3 (1.8-7.8)
[2020-10-13 08:03] LABS: CHLORIDE 103 MMOL/L (98-107); POTASSIUM 4.1 MMOL/L (3.6-5.0); SODIUM 141 MMOL/L (135-145)
[2020-10-13 08:04] LABS: ALANINE AMINOTRANSFERASE 41 U/L (0-55); ALBUMIN 4.7 GM/DL (3.2-4.5); ALKALINE PHOSPHATASE 87 U/L (40-136); BILIRUBIN,TOTAL 0.3 MG/DL (0.1-1.0); BUN/CREATININE RATIO 11; CALCIUM 9.9 MG/DL (8.5-10.1); CARBON DIOXIDE 29 MMOL/L (21-32); GFR ESTIMATED > 60; GLUCOSE 100 MG/DL (70-105); TOTAL PROTEIN 7.2 GM/DL (6.4-8.2)
[2020-10-13 08:22] LABS: CLARITY,URINE CLEAR; COLOR,URINE YELLOW; PH,URINE 5.5 (5-9)
[2020-10-13 08:23] LABS: BACTERIA,URINE NEGATIVE /HPF; BILIRUBIN,URINE NEGATIVE (NEGATIVE); GLUCOSE, URINE (UA) NEGATIVE (NEGATIVE); KETONES,URINE NEGATIVE (NEGATIVE); LEUKOCYTE ESTERASE ,URINE NEGATIVE (NEGATIVE); NITRITE,URINE NEGATIVE (NEGATIVE); PROTEIN,URINE NEGATIVE (NEGATIVE); SQUAMOUS EPITHELIAL CELL,UR RARE /HPF; WBC,URINE RARE /HPF
--- NOTE | 2020-10-13 11:25 | NUR ---
Patient departed ED at this time en route to [place] ED by private vehicle for CT scan.
[2020-10-13] MEDS ORDERED: IOHEXOL 350 MG/ML 100 ML (OMNIPAQUE 350) VIAL IV ONE (12:30)
[2020-10-13] MEDS ORDERED: NS 100 ML (IVPB) BAG IV ONE (12:30)
[2020-10-13] MEDS ORDERED: HOLD METFORMIN - RECEIVED CONTRAST 20 ML VIAL IV SCH (12:30)
--- NOTE | 2020-10-13 12:47 | Diagnostic Imaging Report ---
CT ABDOMEN/PELVIS W TECHNIQUE: Multiple contiguous axial images were obtained through the abdomen and pelvis after administration of intravenous contrast. All CT scans use one or more of the following dose optimizing techniques: automated exposure control, MA and/or KvP adjustment based on a patient size and exam type, or iterative reconstruction. INDICATION: Abdominal pain COMPARISON: 04/05/2020 FINDINGS: Lower chest: The lung bases are clear. No pericardial or pleural effusion. Peritoneum: No free intraperitoneal air or fluid. Liver and biliary system: The liver is normal. The gallbladder is normal. No biliary duct dilation. Spleen and Pancreas: Spleen is normal. The pancreas enhances normally without mass lesion or peripancreatic inflammatory changes. Adrenals: Normal. tract: The kidneys enhance normally without suspicious mass or obstruction. Urinary bladder is distended without wall thickening. Prostate is not enlarged. GI tract: Stomach is decompressed. No bowel obstruction. No pericolonic inflammatory changes. Normal appendix. Vasculature and Lymph nodes: Normal caliber aorta. No abdominal or pelvic lymphadenopathy. Musculoskeletal: No concerning osseous lesion. Stable changes of ALIF at L5-S1. IMPRESSION: No acute intra-abdominal process. Dictated by: Dictated on workstation # [id number]
[2020-10-13 13:48] VITALS: BP 144/87
== END 2020-10-13 13:47 | disposition short-term general hospital (02) ==
LOC: EDUNIT# 06:29 → ER FS 06:33 → ER 13:47
DX: S39.011A Strain of muscle, fascia and tendon of abdomen, initial encounter (principal); X58.XXXA Exposure to other specified factors, initial encounter
CPT/HCPCS: 36415; 74019; 74177; 80053; 81000; 85025; 86141